=== PATIENT | female | born 1995 | race Caucasian/White ===

== ENCOUNTER 2017-02-01 14:40 | Emergency (ER) | payer MEDICAID, SELFPAY | END 2017-02-01 16:37 | disposition home or self-care (01) | PROVIDERS: Emergency Provider Emergency Medicine; Family Provider Family Medicine; Visit Provider Emergency Medicine | DX: O23.11 Infections of bladder in pregnancy, first trimester (principal); Z3A.01 Less than 8 weeks gestation of pregnancy; J45.909 Unspecified asthma, uncomplicated | CPT/HCPCS: 80053; 81001; 84702; 85025; 87086; 96365; 99284 ==

== ENCOUNTER → 2018-12-08 13:24 | Outpatient (CLI) | payer MEDICAID, SELFPAY ==
--- NOTE | 2018-12-08 13:24 | US_ITS ---
PROCEDURE: US TRANSVAGINAL CLINICAL INDICATION: adnexal mass Follow-up ovarian cyst COMPARISON: TVP US TRANSVAGINAL PREG from 06/10/2013 CT ABDOMEN PELVIS W CON from 11/04/2018 FINDINGS: UTERUS: 8 x 4 x 5 cm with a combined endometrial thickness of 2 mm. scar is present anteriorly and inferiorly. No uterine mass evident. LEFT OVARY: 3.3 x 3 cm containing at 2.8 x 2.7 cm simple appearing cyst. Blood flow is present RIGHT OVARY: 2.7 x 1.7 cm with small follicles noted No cul-de-sac fluid IMPRESSION: 2.8 cm simple appearing left ovarian cyst otherwise negative Dictated by: Cedric Blue MD 12/08/2018 18:34 Electronically signed by Cedric Blue MD in [place] 12/08/2018 18:34
== END ==
PROVIDERS: PCP Family Medicine; Visit Provider Obstetrics & Gynecology
DX: N94.89 Other specified conditions associated with female genital organs and menstrual cycle (principal)
CPT/HCPCS: 76830

== ENCOUNTER → 2019-04-13 12:38 | Outpatient (CLI) | payer MEDICAID, SELFPAY ==
--- NOTE | 2019-04-13 12:38 | US_ITS ---
PROCEDURE: US TRANSVAGINAL CLINICAL INDICATION: pelvic pain COMPARISON: US TRANSVAGINAL from 12/08/2018 FINDINGS: UTERUS: 8cm x 5cmx 3cm with a combined endometrial thickness of 7mm LEFT OVARY: [id number] with a volume of 7ml. RIGHT OVARY: [id number] with a volume of 7.2ml. scar noted involving the lower aspect of the anterior uterus. The uterus mass evident. There are bilateral ovarian follicles. Previously noted dominant cyst in the left ovary has resolved. No cul-de-sac fluid. IMPRESSION: Resolved dominant left ovarian cyst Dictated by: Cedric Bleu MD 04/13/2019 13:47 Electronically signed by Cedric Blue MD in [place] 04/13/2019 13:47
== END ==
PROVIDERS: PCP Family Medicine; Visit Provider Nurse Practitioner Obstetrics & Gynecology
DX: R10.2 Pelvic and perineal pain (principal)
CPT/HCPCS: 76830

== ENCOUNTER 2019-06-28 12:26 | Emergency (ER) | payer MEDICAID, SELFPAY ==
[2019-06-28 12:45] LABS: Microscopic, Urine URINE MICROSCOPIC (MICROSCOPIC)
[2019-06-28 12:46] LABS: Appearance,Urine CLEAR (Clear); Bilirubin,Urine Negative (Negative); Blood, Urine Negative (Negative); Color,Urine YELLOW (Yellow); Glucose,Urine (UA) Negative (Negative); Ketones,Urine Negative (Negative); Leukocyte Esterase,Urine Negative (Negative); Nitrate,Urine Negative (Negative); Protein,Urine Negative (Negative); Specific Gravity, Urine 1.025 (1.005-1.030); Urobilinogen,Urine 0.2 EU/dl (0.2)
[2019-06-28 12:50] LABS: Urine Pregnancy, HCG Qual. Negative (Negative)
[2019-06-28 12:54] VITALS: BP 136/77; PULSE 76; RESP 16; TEMP 37; O2SAT 98; BMI 25.0
[2019-06-28 12:59] LABS: RBC,Urine Occasional #/hpf (0-3)
--- NOTE | 2019-06-28 13:01 | CT_ITS ---
PROCEDURE: CT ABDOMEN PELVIS W CON CLINICAL INDICATION: pain The lower stomach pain, possible kidney stone COMPARISON: CT ABDOMEN PELVIS W CON from 03/06/2019 TECHNIQUE: IV Contrast: 75ML OPTIRAY 350 Oral Contrast none Axial images obtained with sagittal and coronal reformats. All CT scans at the facility use one or more dose reduction, viz: automated exposure control, ma/kV adjustment per patient size (including targeted exams where dose is matched to indication, i.e. head), or iterative reconstruction technique. FINDINGS: LOWER THORAX: There is a stable 9 mm nodule in the left lower lobe ABDOMEN & PELVIS: The liver, spleen, adrenal glands, pancreas, gallbladder, and kidneys show no acute finding. There is a complex cyst in the upper pole of the right kidney measuring 14 mm with a calcification posteriorly with cortical scarring at this region. This may be due to a diverticulum. A sub cm cyst is present in the mid polar region of the right kidney. No ureteral calculi. No intestinal obstruction or free air. No pelvic mass or abnormal fluid collection. There is a 2.3 cm left ovarian cyst. The no acute bony anomalies. IMPRESSION: 1. No acute finding. 2. 14 mm right upper pole renal cyst versus calyceal diverticulum containing a stone. No hydronephrosis. No ureteral calculi 3. 2.3 cm left ovarian cyst Dictated by: Cedric Blue MD 06/28/2019 13:50 Electronically signed by Cedric Blue MD in [place] 06/28/2019 13:50
[2019-06-28 13:05] LABS: Basophils # 0.1 K/mm3 (0-0.2); Basophils % 0.6 % (0.1-2.0); Eosinophils # 0.2 K/mm3 (0.0-0.4); Eosinophils % 2.1 % (0.1-12.0); Hematocrit 44.8 % (37.0-47.0); Hemoglobin 14.3 g/dL (12.2-16.2); Lymphocytes # 2.8 K/mm3 (0.7-4.5); Lymphocytes % 30.3 % (10-50); Mean Corpuscular Hemoglobin 25.8 pg (27.0-31.2); Mean Corpuscular Volume 80.7 fl (81-99); Mean Platelet Volume 8.5 fl (7.4-10.4); Monocytes # 0.6 K/mm3 (0.1-1.0); Monocytes % 6.3 % (1.7-9.3); Neutrophils # 5.6 K/mm3 (1.8-7.8); Neutrophils % 60.7 % (37.0-80.0); Platelet Count 260 K/mm3 (142-424); Red Blood Count 5.55 M/mm3 (4.20-5.40); Red Cell Distribution Width 14.9 % (11.5-17.5); White Blood Count 9.2 K/mm3 (4.8-10.8)
[2019-06-28 13:09] LABS: Alanine Aminotransferase 16 U/L (12-78); Albumin/Globulin Ratio 1.4 (1.1-1.8); Alkaline Phosphatase 76 U/L (38-126); Anion Gap 12.1 mEq/L (5-15); Aspartate Amino Transferase 24 U/L (14-36); Bilirubin,Total 0.3 mg/dl (0.2-1.3); Blood Urea Nitrogen 10 mg/dl (7-17); Calcium 9.9 mg/dl (8.4-10.2); Carbon Dioxide 25 mmol/L (22.0-30.0); Chloride 103 mmol/L (98-107); Creatinine Clearance Estimated 167 mL/min (50-200); Estimated Glomerular Filt Rate 124 ml/min (>60); GFR (African American) 150 ML/MIN (>60); Globulin 3.5 g/dL (1.3-3.2); Glucose 112 mg/dl (74-100); Potassium 4.1 mmoL/L (3.5-5.1); Sodium 136 mmol/L (136-145); Total Protein,Serum 8.5 g/dl (6.3-8.2)
[2019-06-28 13:45] VITALS: BP 112/38; PULSE 62; O2SAT 98
--- NOTE | 2019-06-28 14:24 | HMH.EDABDPAI ---
ED Disposition Clinical Impression: Pelvic pain, Ovarian cyst Disposition: Home, Self-Care Condition on Discharge: Good Instructions: DI for Acute Abdomen Prescriptions: Nabumetone 750 mg PO BID 10 Days #20 tab Transmission Status: Pending to [facility]/pharmacy #[id number] Referrals: Berry Noriega [Primary Care Provider] - - Critical Care Critical Care Time: No Attestation: On 06/28/19, the high probability of a clinically significant, sudden or life threatening deterioration of the following system(s) required my full and direct attention, intervention and personal management. The time I documented below is in addition to time spent performing reported procedures but includes the following listed in this critical care notation. Medical Decision Making - Medical Records Medical records reviewed: Yes: I reviewed the patient's medical records. - Zay Inquiry Pt receiving controlled substance: No Vital Signs: 06/28/19 12:54 06/28/19 13:45 Temperature 98.6 F Temperature Source Oral Pulse Rate [Left Radial] 76 62 Respiratory Rate 16 Blood Pressure [Right Arm] 136/77 112/38 L Blood Pressure Mean [Right Arm] 96 62 Blood Pressure Position [Right Arm] Sitting Sitting 02 Sat by Pulse Oximetry 98 98 Oxygen Delivery Method Room Air Room Air - Lab Data Lab results reviewed: Yes: I reviewed the patient's lab results. Lab Results 06/28/19 12:30: Urine Color Yellow, Urine Appearance Clear, Urine pH 7.0, Ur Specific [place] 1.025, Urine Protein Negative, Urine Glucose (UA) Negative, Urine Ketones Negative, Urine Blood Negative, Urine Nitrate Negative, Urine Bilirubin Negative, Urine Urobilinogen 0.2, Ur Leukocyte Esterase Negative, Urine RBC Occasional, Urine WBC 3-5, Ur Squamous Epith Cells 5-10, Urine Bacteria None 06/28/19 12:30: Urine HCG, Qual Negative 06/28/19 12:40: WBC 9.2, RBC 5.55 H, Hgb 14.3, Hct 44.8, MCV 80.7 L, MCH 25.8 L, MCHC 32.0, RDW 14.9, Plt Count 260, MPV 8.5, Neut % (Auto) 60.7, Lymph % (Auto) 30.3, [place] % (Auto) 6.3, Eos % (Auto) 2.1, Baso % (Auto) 0.6, Neut # (Auto) 5.6, Lymph # (Auto) 2.8, [place] # (Auto) 0.6, Eos # (Auto) 0.2, Baso # (Auto) 0.1 06/28/19 12:40: Sodium 136, Potassium 4.1, Chloride 103, Carbon Dioxide 25, Anion Gap 12.1, BUN 10, Creatinine 0.60, Estimated Creat Clear 167, Estimated GFR 124, Est GFR ( Amer) 150, Glucose 112 H, Calcium 9.9, Total Bilirubin 0.3, AST 24, ALT 16, Alkaline Phosphatase 76, Total Protein 8.5 H, Albumin 5.0, Globulin 3.5 H, Albumin/Globulin Ratio 1.4 Result diagrams: 06/28/19 12:40 06/28/19 12:40 Orders (Tests/Meds): ED MEDICATIONS Discontinued Medications Generic Name Dose Route Start Last Admin Trade Name Freq PRN Reason Stop Dose Admin Hydromorphone HCl 1 mg 06/28/19 13:03 06/28/19 12:50 Dilaudid 2mg/Ml Syringe IV 06/28/19 13:04 1 mg ONCE ONE Administration Sodium Chloride 1,000 mls @ 999 mls/hr 06/28/19 13:15 06/28/19 12:39 Sod Chlor 0.9% 1000ml Bag IV 06/28/19 14:15 999 mls/hr .Q1H1M JEANNIE Administration Ioversol 75 ml 06/28/19 13:22 06/28/19 13:22 Rad-Optiray 350 100ml Vial IV 06/28/19 13:23 75 ml ONCE ONE Administration Protocol Ketorolac Tromethamine 30 mg 06/28/19 13:04 06/28/19 13:06 Toradol 30mg/Ml Vial IV 06/28/19 13:05 Not Given ONCE ONE Metoclopramide HCl 10 mg 06/28/19 13:03 06/28/19 12:50 Reglan 10mg/2ml Vial IVP 06/28/19 13:04 10 mg ONCE ONE Administration Ondansetron HCl 4 mg 06/28/19 13:04 06/28/19 13:06 Zofran 4mg/2ml Vial IV 06/28/19 13:05 Not Given ONCE ONE Sodium Chloride 10 ml 06/28/19 13:22 06/28/19 13:22 Rad-Saline Flush 10ml Syringe IV 06/28/19 13:23 10 ml ONCE ONE Administration - CT Data CT Scan: Abdomen Time Received: 14:[address] Reviewed: Yes: I have viewed the radiologist's interpretation Preliminary Findings: Abnormal (Ovarian cyst measuring 2.3 x 2.8 cm) Abdominal Pain HPI - General Chief Complaint: Abdomina
[2019-06-28 14:34] VITALS: BP 121/62; PULSE 69; RESP 18; TEMP 36.8; O2SAT 98
== END 2019-06-28 14:36 | disposition home or self-care (01) ==
PROVIDERS: Emergency Provider Family Medicine; PCP Family Medicine
DX: N83.202 Unspecified ovarian cyst, left side (principal); J45.909 Unspecified asthma, uncomplicated; F41.9 Anxiety disorder, unspecified
CPT/HCPCS: 74177; 80053; 81001; 81025; 85025; 96365; 96375; 99283; Q9967

== ENCOUNTER → 2019-07-04 17:04 | Outpatient (CLI) | payer MEDICAID, SELFPAY ==
[2019-07-06 20:32] LABS: Neisseria gonorrhoeae, NAA Negative (Negative)
== END ==
PROVIDERS: Visit Provider Nurse Practitioner Obstetrics & Gynecology
DX: Z72.51 High risk heterosexual behavior (principal)
CPT/HCPCS: 87491; 87591

== ENCOUNTER → 2019-11-22 11:50 | Outpatient (CLI) | payer MEDICAID, SELFPAY ==
[2019-11-23 10:03] LABS: Hep A Ab, IgM Negative (Negative); Hepatitis B Core Antibody IgM Negative (Negative); Hepatitis B Surface Antigen Negative (Negative)
[2019-11-23 13:28] LABS: HIV Screen 4th Generation wRfx Non Reactive (Non Reactive); HSV 1 IgG, Type Spec <0.91 index (0.00-0.90); HSV 2 IgG, Type Spec <0.91 index (0.00-0.90); Hepatitis C Antibody <0.1 s/co ratio (0.0-0.9); Rapid Plasma Reagin Ab Titer Non Reactive (NonRea<1:1)
== END ==
PROVIDERS: Visit Provider Nurse Practitioner Obstetrics & Gynecology
DX: Z72.51 High risk heterosexual behavior (principal)
CPT/HCPCS: 36415; 80074; 86592; 86695; 86703; 86790; G0432

== ENCOUNTER 2020-01-17 17:54 | Emergency (ER) | payer OTHER, SELFPAY ==
[2020-01-17 17:55] VITALS: BP 142/93; PULSE 99; RESP 16; TEMP 36.9; O2SAT 99; BMI 25.1
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
[2020-01-17 18:31] VITALS: BP 125/88; PULSE 104; O2SAT 98
[2020-01-17 18:38] LABS: Urine Pregnancy, HCG Qual. Negative (Negative)
[2020-01-17 19:04] VITALS: BP 142/93; PULSE 106; O2SAT 99
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
[2020-01-17 20:27] VITALS: BP 119/88; PULSE 74; RESP 14; TEMP 36.9; O2SAT 98
== END 2020-01-17 20:30 | disposition home or self-care (01) ==
PROVIDERS: Emergency Provider Emergency Medicine; PCP Family Medicine
DX: S06.0X0A Concussion without loss of consciousness, initial encounter (principal); S16.1XXA Strain of muscle, fascia and tendon at neck level, initial encounter; V89.2XXA Person injured in unspecified motor-vehicle accident, traffic, initial encounter
CPT/HCPCS: 70450; 72125; 81025; 96372; 99283; J2405

== ENCOUNTER 2020-03-14 15:30 | Emergency (ER) | payer OTHER, MEDICAID, SELFPAY ==
[2020-03-14 15:32] VITALS: BP 128/75; PULSE 75; RESP 16; TEMP 37; O2SAT 98; BMI 27.7
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
[2020-03-14 16:43] LABS: Urine Pregnancy, HCG Qual. Negative (Negative)
[2020-03-14 18:00] VITALS: BP 132/65; PULSE 78; RESP 16; TEMP 36.6; O2SAT 98
== END 2020-03-14 18:01 | disposition home or self-care (01) ==
PROVIDERS: Emergency Provider Emergency Medicine; PCP Nurse Practitioner Family
DX: G43.009 Migraine without aura, not intractable, without status migrainosus (principal); F41.9 Anxiety disorder, unspecified; J45.909 Unspecified asthma, uncomplicated; Z79.899 Other long term (current) drug therapy
CPT/HCPCS: 81025; 96365; 96375; 99282; J2405

== ENCOUNTER → 2020-04-18 15:03 | Outpatient (CLI) | payer MEDICAID, SELFPAY ==
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
== END ==
PROVIDERS: PCP Nurse Practitioner Family; Visit Provider Specialist
DX: G43.709 Chronic migraine without aura, not intractable, without status migrainosus (principal); G44.319 Acute post-traumatic headache, not intractable
CPT/HCPCS: 70551

== ENCOUNTER 2020-04-30 08:00 | Outpatient (RCR) | payer MEDICAID, SELFPAY | END 2020-04-30 08:05 | disposition home or self-care (01) | LOC: PT 08:00 | PROVIDERS: PCP Nurse Practitioner Family; Visit Provider Specialist | DX: G43.709 Chronic migraine without aura, not intractable, without status migrainosus (principal); G44.319 Acute post-traumatic headache, not intractable | CPT/HCPCS: 20561; 97010; 97014; 97110; 97163; G0283 ==

== ENCOUNTER → 2020-05-26 09:18 | Outpatient (CLI) | payer MEDICAID, SELFPAY ==
[2020-05-26 10:47] LABS: HCG,Quantitative 69 mIU/ml (0-5.42)
== END ==
PROVIDERS: Visit Provider Obstetrics & Gynecology
DX: Z34.90 Encounter for supervision of normal pregnancy, unspecified, unspecified trimester (principal)
CPT/HCPCS: 36415; 84702

== ENCOUNTER → 2020-05-28 08:56 | Outpatient (CLI) | payer MEDICAID, SELFPAY ==
[2020-05-28 09:55] LABS: HCG,Quantitative 275 mIU/ml (0-5.42)
== END ==
PROVIDERS: Visit Provider Obstetrics & Gynecology
DX: Z34.90 Encounter for supervision of normal pregnancy, unspecified, unspecified trimester (principal)
CPT/HCPCS: 36415; 84702

== ENCOUNTER 2020-05-29 08:49 | Emergency (ER) | payer MEDICAID, SELFPAY ==
[2020-05-29 08:50] VITALS: BP 143/94; PULSE 115; RESP 16; TEMP 37.3; O2SAT 98; BMI 29.7
[2020-05-29 08:58] VITALS: BP 143/94; PULSE 95; O2SAT 99
[2020-05-29 09:11] LABS: Microscopic, Urine URINE MICROSCOPIC (MICROSCOPIC)
--- NOTE | 2020-05-29 09:14 | US_ITS ---
PROCEDURE: US OB TRANSVAGINAL CLINICAL INDICATION: pelvic pain, , r/o ectopic COMPARISON: US US TRANSVAGINAL from 04/13/2019 FINDINGS: There is an anechoic sac within the fundus of the uterus. No pole or yolk sac identified which may be too early to detect. Leonard a gest correlation with beta HCG and serial ultrasounds. The ovaries have an unremarkable appearance. No cul-de-sac fluid apparent. IMPRESSION: Intrauterine gestational sac is noted but no pole or yolk sac which could be too early to visualize. Suggest correlation with beta HCG and follow-up ultrasound. One cannot exclude the possibility of an ectopic with these findings. There are no other sonographic findings to support that diagnosis. Dictated by: Cedric Blue MD 05/29/2020 11:11 Cedric Blue MD in [place] 05/29/2020 11:11
--- NOTE | 2020-05-29 09:15 | US_ITS ---
PROCEDURE: US KIDNEY CLINICAL INDICATION: right flank pain, h/o kidney stones COMPARISON: US KID US [id number] from 09/26/2013 FINDINGS: The right kidney is [id number]. No hydronephrosis, cortical thinning, or renal mass or perinephric fluid collection is evident. The left kidney is [id number]. No hydronephrosis, cortical thinning, or renal mass or perinephric fluid collection is evident. No sonographically detected renal calculi IMPRESSION: Unremarkable bilateral renal ultrasound Dictated by: Cedric Blue MD 05/29/2020 11:07 Cedric Blue MD in [place] 05/29/2020 11:07
[2020-05-29 09:17] LABS: Appearance,Urine CLEAR (Clear); Bilirubin,Urine Negative (Negative); Blood, Urine Negative (Negative); Color,Urine YELLOW (Yellow); Glucose,Urine (UA) Negative (Negative); Ketones,Urine Negative (Negative); Leukocyte Esterase,Urine 1+ (Negative); Nitrate,Urine Negative (Negative); PH,Urine 5.5 (5.0-8.5); Protein,Urine Negative (Negative); Specific Gravity, Urine >= 1.030 (1.005-1.030); Urobilinogen,Urine 0.2 EU/dl (0.2)
--- NOTE | 2020-05-29 09:17 | HMH.EDGENADL ---
ED Disposition Clinical Impression: Abdominal pain affecting , Right flank pain Disposition: Home, Self-Care Condition on Discharge: Good Instructions: DI for Acute Abdominal Pain, DI for Flank Pain Additional Instructions: Keflex as prescribed. Follow-up urine culture results in 2 days with primary care provider or [facility]. Additional instructions for ABDOMINAL PAIN: See your physician as soon as possible for further evaluation. Return immediately if worsening abdominal pain, vaginal bleeding, vomiting, shortness of breath, fever, vomiting of blood or abdominal distention. Prescriptions: cephALEXin [Cephalexin 250mg Tab] 250 mg PO Q6H #20 tab Transmission Status: Sent to [facility] #[id number] Referrals: Chilango Landeros APRN [Primary Care Provider] - - Critical Care Critical Care Time: No Attestation: On 05/29/20, the high probability of a clinically significant, sudden or life threatening deterioration of the following system(s) required my full and direct attention, intervention and personal management. The time I documented below is in addition to time spent performing reported procedures but includes the following listed in this critical care notation. Medical Decision Making - Medical Records Medical records reviewed: Yes: I reviewed the patient's medical records. MR Comment: Noted to have had 5 CT scans of the abdomen and pelvis in the year 2019. None of those scans showed renal or ureteral calculi. She has a right renal cyst. Reviewed Beta-hCG results: 69 on 05/26, 275 on 05/28 - Zay Inquiry Pt receiving controlled substance: No Vital Signs: 05/29/20 08:50 05/29/20 08:58 05/29/20 10:25 Temperature 99.2 F Temperature Source Oral Pulse Rate 95 H 88 Pulse Rate [Radial] 115 H Respiratory Rate 16 16 Blood Pressure 143/94 H 102/72 L Blood Pressure [Right Arm] 143/94 H Blood Pressure Mean 102 Blood Pressure Mean [Right Arm] 110 Blood Pressure Position Sitting Blood Pressure Position [Right Arm] Sitting 02 Sat by Pulse Oximetry 98 99 98 Oxygen Delivery Method Room Air Room Air 05/29/20 11:00 Temperature Temperature Source Pulse Rate 76 Pulse Rate [Radial] Respiratory Rate Blood Pressure 110/74 Blood Pressure [Right Arm] Blood Pressure Mean 83 Blood Pressure Mean [Right Arm] Blood Pressure Position Blood Pressure Position [Right Arm] 02 Sat by Pulse Oximetry 100 Oxygen Delivery Method - Lab Data Lab Results 05/29/20 08:55: Urine Color Yellow, Urine Appearance Clear, Urine pH 5.5, Ur Specific [place] >= 1.030, Urine Protein Negative, Urine Glucose (UA) Negative, Urine Ketones Negative, Urine Blood Negative, Urine Nitrate Negative, Urine Bilirubin Negative, Urine Urobilinogen 0.2, Ur Leukocyte Esterase 1+ A, Urine RBC None, Urine WBC 5-10, Ur Squamous Epith Cells 3-5, Urine Bacteria 1+ 05/29/20 09:22: WBC 9.7, RBC 4.92, Hgb 13.2, Hct 40.2, MCV 81.7, MCH 26.8 L, MCHC 32.8, RDW 13.8, Plt Count 226, MPV 7.9, Neut % (Auto) 68.8, Lymph % (Auto) 25.6, [place] % (Auto) 3.8, Eos % (Auto) 1.3, Baso % (Auto) 0.4, Neut # (Auto) 6.7, Lymph # (Auto) 2.5, [place] # (Auto) 0.4, Eos # (Auto) 0.1, Baso # (Auto) 0.0 05/29/20 09:22: Sodium 134 L, Potassium 4.1, Chloride 103, Carbon Dioxide 22, Anion Gap 13.1, BUN 6 L, Creatinine 0.50 L, Estimated Creat Clear 250, Estimated GFR 152, Est GFR ( Amer) 183, Glucose 151 H, Calcium 9.2, Total Bilirubin 0.6, AST 48 H, ALT 59, Alkaline Phosphatase 83, Total Protein 7.4, Albumin 4.5, Globulin 2.9, Albumin/Globulin Ratio 1.6 05/29/20 09:22: HCG, Quant 521 H 05/29/20 09:22: Lipase 59 Result diagrams: 05/29/20 09:22 05/29/20 09:22 Orders (Tests/Meds): ED MEDICATIONS Discontinued Medications Generic Name Dose Route Start Last Admin Trade Name Yudelka PRN Reason Stop Dose Admin Acetaminophen 650 mg 05/29/20 10:19 05/29/20 10:25 Acetaminophen 325mg Tab PO 05/29/20 10:20 650 mg ONCE ONE Administration
[2020-05-29 09:32] LABS: Basophils % 0.4 % (0.1-2.0); Eosinophils # 0.1 K/mm3 (0.0-0.4); Eosinophils % 1.3 % (0.1-12.0); Hematocrit 40.2 % (37.0-47.0); Hemoglobin 13.2 g/dL (12.2-16.2); Lymphocytes # 2.5 K/mm3 (0.7-4.5); Lymphocytes % 25.6 % (10-50); Mean Corpuscular HGB Conc 32.8 g/dL (31.8-35.4); Mean Corpuscular Hemoglobin 26.8 pg (27.0-31.2); Mean Corpuscular Volume 81.7 fl (81-99); Mean Platelet Volume 7.9 fl (7.4-10.4); Monocytes # 0.4 K/mm3 (0.1-1.0); Monocytes % 3.8 % (1.7-9.3); Neutrophils # 6.7 K/mm3 (1.8-7.8); Neutrophils % 68.8 % (37.0-80.0); Platelet Count 226 K/mm3 (142-424); Red Blood Count 4.92 M/mm3 (4.20-5.40); Red Cell Distribution Width 13.8 % (11.5-17.5); White Blood Count 9.7 K/mm3 (4.8-10.8)
[2020-05-29 09:41] LABS: Chloride 103 mmol/L (98-107); Potassium 4.1 mmoL/L (3.5-5.1); Sodium 134 mmol/L (136-145)
[2020-05-29 09:43] LABS: Alanine Aminotransferase 59 U/L (12-78); Aspartate Amino Transferase 48 U/L (14-36); Blood Urea Nitrogen 6 mg/dl (7-17); Creatinine Clearance Estimated 250 mL/min (50-200); Estimated Glomerular Filt Rate 152 ml/min (>60); GFR (African American) 183 ML/MIN (>60)
[2020-05-29 09:44] LABS: Albumin Level 4.5 g/dl (3.5-5.0); Albumin/Globulin Ratio 1.6 (1.1-1.8); Alkaline Phosphatase 83 U/L (38-126); Anion Gap 13.1 mEq/L (5-15); Bilirubin,Total 0.6 mg/dl (0.2-1.3); Calcium 9.2 mg/dl (8.4-10.2); Carbon Dioxide 22 mmol/L (22.0-30.0); Globulin 2.9 g/dL (1.3-3.2); Glucose 151 mg/dl (74-100); Lipase 59 U/L (23-300); Total Protein,Serum 7.4 g/dl (6.3-8.2)
[2020-05-29 09:47] LABS: Bacteria,Urine 1+ /lpf
[2020-05-29 10:02] LABS: HCG,Quantitative 521 mIU/ml (0-5.42)
[2020-05-29 10:25] VITALS: BP 102/72; PULSE 88; RESP 16; O2SAT 98
[2020-05-29 11:00] VITALS: BP 110/74; PULSE 76; O2SAT 100
[2020-05-29 11:31] VITALS: BP 104/68; PULSE 88; RESP 16; TEMP 36.6; O2SAT 98
[2020-05-31 08:57] LABS: Neisseria gonorrhoeae, NAA Negative (Negative)
== END 2020-05-29 11:32 | disposition home or self-care (01) ==
PROVIDERS: Emergency Provider Emergency Medicine; PCP Nurse Practitioner Family
DX: O26.899 Other specified pregnancy related conditions, unspecified trimester (principal); Z34.90 Encounter for supervision of normal pregnancy, unspecified, unspecified trimester; E11.9 Type 2 diabetes mellitus without complications; F41.9 Anxiety disorder, unspecified; Z87.442 Personal history of urinary calculi
CPT/HCPCS: 76770; 76817; 80053; 81001; 83690; 84702; 85025; 87086; 87491; 87591; 96365; 99283

== ENCOUNTER 2020-06-03 11:45 | Emergency (ER) | payer MEDICAID, SELFPAY ==
[2020-06-03 12:05] VITALS: BP 125/70; PULSE 105; RESP 18; O2SAT 100; BMI 29.7
[2020-06-03 12:09] VITALS: BP 125/70; PULSE 105; RESP 18; TEMP 36.7; O2SAT 100; BMI 29.7
--- NOTE | 2020-06-03 12:44 | HMH.EDUTC ---
[facility] [place] Clinical Impression: Wasp sting Qualifiers: Encounter type: initial encounter Injury intent: undetermined intent Qualified Code(s): T63.464A - Toxic effect of venom of wasps, undetermined, initial encounter Disposition: Home, Self-Care Condition on Discharge: Good Instructions: How to Care for an Insect Bite or Sting, Insect Bites and Stings, DI for Insect Bites and Stings, Diphenhydramine Additional Instructions: Benadryl is safe to take during for reactions to bee stings but always discuss over the counter medications with pharmacy to make sure they are safe to take during Follow up with your Family Doctor for further treatment and evaluation Return if needed Follow up with OBGYN as scheduled Referrals: Chilango Landeros APRN [Primary Care Provider] - As needed Time of Disposition: 13:00 Medical Decision Making - Zay Inquiry Pt receiving controlled substance: No Zay was queried for this patient: No Vital Signs: 06/03/20 12:05 06/03/20 12:09 Temperature 98.1 F Temperature Source Oral Pulse Rate [Left Radial] 105 H 105 H Respiratory Rate 18 18 Blood Pressure [Right Arm] 125/70 125/70 Blood Pressure Mean [Right Arm] 88 88 Blood Pressure Source [Right Arm] Automatic Cuff Automatic Cuff Blood Pressure Position [Right Arm] Sitting Sitting 02 Sat by Pulse Oximetry 100 100 Oxygen Delivery Method Room Air Room Air Medical Decision Narrative: Patient states that she is suppose to have appointment with Dr Emiliano beltran, called Dr Monroy office no answer left message awaiting call back Medication discussed with pharmacy may take Benadryl [place] [facility] [place] - General Stated complaint: Wasp sting Time Seen by Provider: 06/03/20 12:44 Mode of Arrival: Ambulatory Source of Information: Patient Limitations: No Limitations Description of Symptoms (Recalled from Triage Doc. by RN): WASP STING ON RIGHT HAND AND RIGHT SIDE OF BACK HEENT Symptoms (Recalled from RN notes): No Resp Symptoms (Recalled from RN notes): No Skin Symptoms (Recalled from RN notes): Yes MS Symptoms (Recalled from RN notes): No Functional Status (Recalled from RN notes): WNL - History of Present Illness Provider Complaint: Patient states that she was stung on her right hand and right side of her back States that she just found out she was and has not had her first OB visit yet and she was not sure what she could take State that she noticed she was already having some swelling in her right hand so she came in to see what she can take for it - Related Data Home Medications Medication Instructions Recorded Confirmed omeprazole 20 mg capsule,delayed 20 mg PO DAILY 01/24/20 04/29/20 release Previous Rx's Medication Instructions Recorded amitriptyline 25 mg tablet 25 mg PO HS #30 tab 04/29/20 sumatriptan succinate 100 mg tablet 100 mg PO Q2H PRN #10 tab 04/29/20 cephALEXin [Cephalexin 250mg Tab] 250 mg PO Q6H #20 tab 05/29/20 Allergies Allergy/AdvReac Type Severity Reaction Status Date / Time No Known Allergies Allergy Verified 04/29/20 14:35 - Worker's Comp Is this a Worker's Comp case?: No [facility] History - Hepatitis A Screen Drug use history?: No High risk sexual behaviors?: No History of sexually transmitted infection?: No Currently employed?: No Childcare worker?: No Do you have indoor plumbing?: Yes Do you have electricity?: Yes Attestation statement:: This patient has been screened for Hepatitis A risk factors. I have reviewed the patient's past medical history: Yes Medical History: Reports:: Anxiety, Asthma, Diabetes Mellitus Type 2, Kidney Stones, Migraine Denies:: Diabetes Mellitus Type 1 Other Medical History: Reports: Anemia, Other Comment: KIDNEY STONES Other Surgeries: Yes: No Previous Surgery, , Other Amputation: No Fractures: No Comment: [id number] RT. KNEE SURGERY X2. 2014- PRIMARY . 2014-WISDOM TEETH. 2018- REPEAT
[2020-06-03 13:23] VITALS: BP 125/70; PULSE 105; RESP 18; TEMP 36.7; O2SAT 100
== END 2020-06-03 13:24 | disposition home or self-care (01) ==
PROVIDERS: Emergency Provider Emergency Medicine; PCP Nurse Practitioner Family
DX: T63.464A Toxic effect of venom of wasps, undetermined, initial encounter (principal); E11.9 Type 2 diabetes mellitus without complications; Z34.90 Encounter for supervision of normal pregnancy, unspecified, unspecified trimester; G43.709 Chronic migraine without aura, not intractable, without status migrainosus; F41.9 Anxiety disorder, unspecified; Z87.442 Personal history of urinary calculi
CPT/HCPCS: 99202; G0463

== ENCOUNTER → 2020-06-09 09:45 | Outpatient (CLI) | payer MEDICAID, SELFPAY ==
[2020-06-09 11:25] LABS: HCG,Quantitative 23917 mIU/ml (0-5.42)
== END ==
PROVIDERS: Visit Provider Obstetrics & Gynecology
DX: Z34.90 Encounter for supervision of normal pregnancy, unspecified, unspecified trimester (principal)
CPT/HCPCS: 36415; 84702

== ENCOUNTER → 2020-06-17 12:49 | Outpatient (CLI) | payer MEDICAID, SELFPAY ==
--- NOTE | 2020-06-17 12:50 | US_ITS ---
PROCEDURE: US OB <= 14 WEEKS FETUS CLINICAL INDICATION: dates COMPARISON: US US OB TRANSVAGINAL from 05/29/2020 FINDINGS: An intrauterine gestational sac is present with a pole with a crown-rump length of 1.06cm correlating to gestational age of 7weeks 2days. heart tones are present with an FHR of 147bpm. Yolk sac is noted. IMPRESSION: The estimated gestational age by ultrasound is 7 weeks and 2 days. Estimated due date by Ultrasound is 02/01/2021 Dictated by: Denisha Nguyen 06/17/2020 14:26 Denisha Nguyen in [place] 06/17/2020 14:26
== END ==
PROVIDERS: PCP Nurse Practitioner Family; Visit Provider Obstetrics & Gynecology
DX: Z34.90 Encounter for supervision of normal pregnancy, unspecified, unspecified trimester (principal)
CPT/HCPCS: 76801

== ENCOUNTER 2020-06-19 11:28 | Emergency (ER) | payer MEDICAID, SELFPAY ==
[2020-06-19 11:53] VITALS: BP 129/81; PULSE 114; RESP 20; TEMP 37; O2SAT 96; BMI 29.7
[2020-06-19 12:02] VITALS: BP 129/81; PULSE 114; RESP 20; TEMP 37; O2SAT 96
[2020-06-19 12:06] LABS: UTC Strep Screen (Rapid) Negative (Negative)
[2020-06-19 12:07] LABS: UTC Influenza A Antigen Negative (Negative); UTC Influenza B Antigen Negative (Negative)
--- NOTE | 2020-06-19 12:10 | HMH.EDUTC ---
[facility] [place] Clinical Impression: Pharyngitis Qualifiers: Pharyngitis/tonsillitis etiology: unspecified etiology Qualified Code(s): J02.9 - Acute pharyngitis, unspecified Qualifiers: Weeks of gestation: less than 8 weeks Qualified Code(s): Z3A.01 - Less than 8 weeks gestation of Disposition: Home, Self-Care Condition on Discharge: Good Instructions: Sore Throat, DI for Pharyngitis/Tonsillopharyngitis -- Adult Additional Instructions: Drink plenty of fluids. Take tylenol or ibuprofen for pain or fever. Take the medications as directed. Follow up with your regular doctor. GO TO THE ER FOR ANY WORSENING SYMPTOMS Throw your tooth brush away and get a new one. Prescriptions: Amoxicillin [Amoxicillin 500mg Tab] 500 mg PO TID 10 Days #30 tab Transmission Status: Received by [facility] #[id number] Referrals: Chilango Landeros APRN [Primary Care Provider] - Time of Disposition: 12:21 Medical Decision Making - Medical Records Medical records reviewed: No: I reviewed the patient's medical records. - Zay Inquiry Pt receiving controlled substance: No Vital Signs: 06/19/20 11:53 06/19/20 12:02 Temperature 98.6 F 98.6 F Temperature Source Oral Oral Pulse Rate 114 H Pulse Rate [Left] 114 H Respiratory Rate 20 20 Blood Pressure 129/81 Blood Pressure [Right Arm] 129/81 Blood Pressure Mean [Right Arm] 97 02 Sat by Pulse Oximetry 96 Oxygen Delivery Method Room Air - Lab Data Lab results reviewed: Yes: I reviewed the patient's lab results. Lab Results 06/19/20 12:05: Influenza Type A Ag Negative, Influenza Type B Ag Negative 06/19/20 12:05: Strep Scn Rapid Clinic Negative Orders (Tests/Meds): ORDERS Category Date Time Status Strep Screen Confirmation Stat Micro 06/19/20 12:05 Received [facility] [place] HPI - General Stated complaint: cough, congestion Time Seen by Provider: 06/19/20 12:16 Mode of Arrival: Ambulatory Source of Information: Patient Limitations: No Limitations Description of Symptoms (Recalled from Triage Doc. by RN): Cough, fatigue, loss of appetite, headache, chest congesgtion, and cramping. Pt 7weeks 4 days . HEENT Symptoms (Recalled from RN notes): No Resp Symptoms (Recalled from RN notes): Yes Skin Symptoms (Recalled from RN notes): No MS Symptoms (Recalled from RN notes): No Functional Status (Recalled from RN notes): wnl - History of Present Illness Provider Complaint: She c/o sore throat, cough, chest congestion, and feeling bad for the past 2 days. Her son was just diagnosed with strep throat. She is 7 weeks . - Related Data Home Medications Medication Instructions Recorded Confirmed omeprazole 20 mg capsule,delayed 20 mg PO DAILY 01/24/20 04/29/20 release Previous Rx's Medication Instructions Recorded amitriptyline 25 mg tablet 25 mg PO HS #30 tab 04/29/20 sumatriptan succinate 100 mg tablet 100 mg PO Q2H PRN #10 tab 04/29/20 cephALEXin [Cephalexin 250mg Tab] 250 mg PO Q6H #20 tab 05/29/20 ondansetron 8 mg disintegrating 8 mg PO Q8H #90 tab 06/13/20 tablet Amoxicillin [Amoxicillin 500mg Tab] 500 mg PO TID 10 Days #30 tab 06/19/20 Allergies Allergy/AdvReac Type Severity Reaction Status Date / Time No Known Allergies Allergy Verified 06/19/20 12:01 - Worker's Comp Is this a Worker's Comp case?: No [facility] History - Hepatitis A Screen Drug use history?: No High risk sexual behaviors?: No History of sexually transmitted infection?: No Currently employed?: No Childcare worker?: No Do you have indoor plumbing?: Yes Do you have electricity?: Yes Attestation statement:: This patient has been screened for Hepatitis A risk factors. I have reviewed the patient's past medical history: Yes Medical History: Reports:: Anxiety, Asthma, Diabetes Mellitus Type 2, Kidney Stones, Migraine Denies:: Diabetes Mellitus Type 1 Other Medical History: Reports: Anemia, Other Comment: KIDNEY STONE
== END 2020-06-19 12:31 | disposition home or self-care (01) ==
PROVIDERS: Emergency Provider Nurse Practitioner Family; PCP Nurse Practitioner Family
DX: J02.9 Acute pharyngitis, unspecified (principal); Z3A.01 Less than 8 weeks gestation of pregnancy; E11.9 Type 2 diabetes mellitus without complications; F41.9 Anxiety disorder, unspecified
CPT/HCPCS: 87804; 87880; 99202; G0463

== ENCOUNTER → 2020-06-24 14:45 | Outpatient (CLI) | payer MEDICAID, SELFPAY ==
[2020-06-24 15:08] LABS: Basophils % 0.3 % (0.1-2.0); Eosinophils # 0.1 K/mm3 (0.0-0.4); Eosinophils % 1.2 % (0.1-12.0); Hematocrit 37.5 % (37.0-47.0); Hemoglobin 12.9 g/dL (12.2-16.2); Lymphocytes % 26.8 % (10-50); Mean Corpuscular HGB Conc 34.4 g/dL (31.8-35.4); Mean Corpuscular Hemoglobin 27.1 pg (27.0-31.2); Mean Corpuscular Volume 78.8 fl (81-99); Mean Platelet Volume 7.8 fl (7.4-10.4); Monocytes # 0.4 K/mm3 (0.1-1.0); Monocytes % 3.3 % (1.7-9.3); Neutrophils # 7.6 K/mm3 (1.8-7.8); Neutrophils % 68.4 % (37.0-80.0); Platelet Count 253 K/mm3 (142-424); Red Blood Count 4.77 M/mm3 (4.20-5.40); Red Cell Distribution Width 13.9 % (11.5-17.5); White Blood Count 11.1 K/mm3 (4.8-10.8)
[2020-06-26 08:37] LABS: HIV Screen 4th Generation wRfx Non Reactive (Non Reactive)
[2020-06-26 13:31] LABS: Hepatitis B Surface Antigen Negative (Negative); Hepatitis C Antibody 0.1 s/co ratio (0.0-0.9); Rapid Plasma Reagin Ab Titer Non Reactive (NonRea<1:1)
[2020-06-27 11:31] LABS: Rubella Antibodies, IgG <0.90 index (Immune >0.99)
== END ==
PROVIDERS: Visit Provider Obstetrics & Gynecology
DX: Z34.90 Encounter for supervision of normal pregnancy, unspecified, unspecified trimester (principal)
CPT/HCPCS: 36415; 85025; 86592; 86703; 86762; 86850; 87340; 87380; G0432

== ENCOUNTER 2020-07-18 10:00 | Outpatient (CLI) | payer MEDICAID, SELFPAY ==
[2020-07-18 10:18] VITALS: BP 115/70; PULSE 86; RESP 16; O2SAT 100
[2020-07-18 10:48] VITALS: BP 119/68; PULSE 79; RESP 16
[2020-07-18 11:18] VITALS: BP 113/72; PULSE 73; RESP 16
== END 2020-07-18 11:20 | disposition home or self-care (01) ==
LOC: INF 10:19
PROVIDERS: Visit Provider Obstetrics & Gynecology
DX: O26.899 Other specified pregnancy related conditions, unspecified trimester (principal); R10.9 Unspecified abdominal pain; Z3A.11 11 weeks gestation of pregnancy
CPT/HCPCS: 96360

== ENCOUNTER → 2020-07-23 13:10 | Outpatient (CLI) | payer MEDICAID, SELFPAY ==
--- NOTE | 2020-07-23 13:10 | US_ITS ---
PROCEDURE: US KIDNEY CLINICAL INDICATION: COMPARISON: US US KIDNEY from 05/29/2020 FINDINGS: The right kidney is [id number]. No hydronephrosis, cortical thinning, or renal mass or perinephric fluid collection is evident. 2.4 centimeter right renal cortical cyst. The left kidney is [id number]. No hydronephrosis, cortical thinning, or renal mass or perinephric fluid collection is evident. Kidneys are normal in echogenicity and echotexture. There is normal renal vascular flow bilaterally. IMPRESSION: No hydronephrosis of either kidney. 2.4 centimeter right renal cortical cyst. Dictated by: Jeffry Hobson MD 07/23/2020 15:17 Jeffry Hobson MD in [place] 07/23/2020 15:17
== END ==
PROVIDERS: PCP Nurse Practitioner Family; Visit Provider Obstetrics & Gynecology
DX: N20.0 Calculus of kidney (principal)
CPT/HCPCS: 76770

== ENCOUNTER 2020-07-23 13:32 | Emergency (ER) | payer MEDICAID, SELFPAY ==
[2020-07-23 14:08] VITALS: BP 114/74; PULSE 90; RESP 18; TEMP 37.1; O2SAT 99; BMI 28.9
--- NOTE | 2020-07-23 14:09 | XR_ITS ---
PROCEDURE: XR HAND LT MIN 3V CLINICAL INDICATION: pain COMPARISON: No exams were available for comparison FINDINGS: No fracture or dislocation. No lytic or blastic change. There is normal mineralization. The joint spaces are well-preserved. No significant degenerative/arthritic changes. No erosive changes evident. Other findings:Mild soft tissue swelling. IMPRESSION: Mild soft tissue swelling with no definite acute fracture or dislocation. Dictated by: Jeffry Hobson MD 07/23/2020 14:29 Jeffry Hobson MD in [place] 07/23/2020 14:29
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
--- NOTE | 2020-07-23 14:21 | HMH.ITSTN ---
PATIENT WAS INFORMED BY SHAUNA SOFIA AND MYSELF OF THE RISKS OF RADIATION TO THE UNBORN FETUS,,PATIENT SIGNED THAT SHE FULLY UNDERSTOOD AND GAVE CONSENT FOR X-RAYS,,ABDOMEN WAS DOUBLE SHIELDED WITH LEAD
[2020-07-23 14:40] VITALS: BP 114/77; PULSE 90; RESP 18; TEMP 37.1
== END 2020-07-23 14:43 | disposition home or self-care (01) ==
PROVIDERS: Emergency Provider Nurse Practitioner; PCP Nurse Practitioner Family
DX: S63.92XA Sprain of unspecified part of left wrist and hand, initial encounter (principal); Z3A.12 12 weeks gestation of pregnancy; W20.8XXA Other cause of strike by thrown, projected or falling object, initial encounter; Y92.488 Other paved roadways as the place of occurrence of the external cause; E11.9 Type 2 diabetes mellitus without complications; F41.9 Anxiety disorder, unspecified
CPT/HCPCS: 73130; 99202; G0463

== ENCOUNTER 2020-09-01 14:09 | Outpatient (CLI) | payer MEDICAID, SELFPAY ==
[2020-09-01 14:18] VITALS: BP 107/64; PULSE 83; RESP 18; TEMP 36.5; O2SAT 100
[2020-09-01 14:48] VITALS: BP 98/54; PULSE 88; RESP 18; O2SAT 100
[2020-09-01 15:25] VITALS: BP 101/56; PULSE 82; RESP 18; O2SAT 99
== END 2020-09-01 15:25 | disposition home or self-care (01) ==
LOC: INF 14:09
PROVIDERS: Visit Provider Obstetrics & Gynecology
DX: O21.8 Other vomiting complicating pregnancy (principal); Z3A.18 18 weeks gestation of pregnancy
CPT/HCPCS: 96360; 96375; J2405

== ENCOUNTER → 2020-09-15 13:53 | Outpatient (CLI) | payer MEDICAID, SELFPAY ==
--- NOTE | 2020-09-15 13:54 | US_ITS ---
PROCEDURE: US OB >= 14 WEEKS FETUS CLINICAL INDICATION: OB complete COMPARISON: US US OB <= 14 WEEKS FETUS from 06/17/2020 FINDINGS: There is a single live fetus present which is in cephalic presentation. heart and body motion is noted. The cervix is closed and measures 4 cm but could be elongated due to partially filled urinary bladder. Placenta is grade 1 and is anterior and lateral with an accessory lobe anteriorly Complete survey performed and was unremarkable on the submitted images as in PACS. No discrete anomalies identified on survey imaging by technologist. Active fetus. Three-vessel cord with satisfactory umbilical cord insertion. 4- chamber heart noted. Survey of brain & ventricles Unremarkable. Face and neck survey unremarkable. Diaphragm and chest views unremarkable. Abdomen: Both kidneys noted and unremarkable. Stomach noted and satisfactory. Spine: Survey of the spine satisfactory with no anomalies identified nor imaged. Both arms and legs noted. Amniotic Fluid: Adequate. Maternal adnexa: No significant findings. Measurements: Average ultrasound age 20weeks 4days. Gestational Age 20weeks 4days Estimated due date by ultrasound age 1201/29/2021. Estimated weight 357g BPD = 20weeks 5days OFD = 20weeks 3days HC = 19weeks 6days AC = 20weeks 5days FL = 20weeks 4days Growth Percentile= 66% Heart Rate = 146bpm Cerebellum = 20weeks 4days Humerus = 20weeks 5days HC/AC is 1.11 CI is 0.81 FL/BPD is 0.69 FL/AC is 0.22 IMPRESSION: Live IUP with an average ultrasound age 20 weeks 4 days cephalic position. All parameters correlate with no obvious anomalies. Please see above for detail. Dictated by: Cedric Blue MD 09/15/2020 14:57 Cedric Blue MD in [place] 09/15/2020 14:57
== END ==
PROVIDERS: PCP Nurse Practitioner Family; Visit Provider Obstetrics & Gynecology
DX: Z34.90 Encounter for supervision of normal pregnancy, unspecified, unspecified trimester (principal); G47.30 Sleep apnea, unspecified; R06.83 Snoring
CPT/HCPCS: 76805; 95806

== ENCOUNTER 2020-10-02 17:36 | Outpatient (CLI) | payer MEDICAID, SELFPAY ==
[2020-10-02 17:49] VITALS: BMI 29.9
[2020-10-02 18:10] LABS: Microscopic, Urine URINE MICROSCOPIC (MICROSCOPIC)
[2020-10-02 18:11] VITALS: BP 120/80; PULSE 112; RESP 18; TEMP 36.7; O2SAT 98; BMI 29.9
[2020-10-02 18:13] LABS: Appearance,Urine SL CLOUDY (Clear); Bilirubin,Urine Negative (Negative); Blood, Urine Negative (Negative); Color,Urine ORANGE (Yellow); Glucose,Urine (UA) 1+ (Negative); Ketones,Urine TRACE (Negative); Leukocyte Esterase,Urine Negative (Negative); Nitrate,Urine Negative (Negative); Protein,Urine Negative (Negative); Specific Gravity, Urine 1.025 (1.005-1.030); Urobilinogen,Urine 0.2 EU/dl (0.2)
[2020-10-02 18:23] LABS: Bacteria,Urine Trace /lpf; Mucus,Urine Trace /lpf
[2020-10-02 18:35] LABS: Barbiturates Screen,Urine Negative ng/ml (<200); Benzodiazepines Screen,Urine Negative ng/ml (<200)
[2020-10-02 18:36] LABS: Amphetamine/Metha Screen,Urine Negative ng/ml (<1000)
[2020-10-02 18:37] LABS: Cannabinoid Screen,Urine Negative ng/ml (<50); Cocaine Screen,Urine Negative ng/ml (<300)
[2020-10-02 18:38] LABS: Methadone Screen,Urine Negative ng/ml (<300); Opiate Screen,Urine Negative ng/ml (<300)
[2020-10-02 18:39] LABS: Phencyclidine Screen,Urine Negative ng/ml (<25)
[2020-10-02 19:34] LABS: Alanine Aminotransferase 10 U/L (12-78); Albumin Level 3.5 g/dl (3.5-5.0); Albumin/Globulin Ratio 1.2 (1.1-1.8); Alkaline Phosphatase 70 U/L (38-126); Anion Gap 11.6 mEq/L (5-15); Aspartate Amino Transferase 20 U/L (14-36); Bilirubin,Total < 0.1 mg/dl (0.2-1.3); Blood Urea Nitrogen 5 mg/dl (7-17); Calcium 8.7 mg/dl (8.4-10.2); Carbon Dioxide 23 mmol/L (22.0-30.0); Chloride 105 mmol/L (98-107); Creatinine Clearance Estimated 312 mL/min (50-200); Estimated Glomerular Filt Rate 194 ml/min (>60); GFR (African American) 235 ML/MIN (>60); Glucose 85 mg/dl (74-100); Potassium 3.6 mmoL/L (3.5-5.1); Sodium 136 mmol/L (136-145); Total Protein,Serum 6.5 g/dl (6.3-8.2)
== END 2020-10-02 20:00 | disposition home or self-care (01) ==
LOC: OBOUT 17:38 → OB 17:39
PROVIDERS: PCP Nurse Practitioner Family; Visit Provider Obstetrics & Gynecology
DX: O36.8120 Decreased fetal movements, second trimester, not applicable or unspecified (principal); Z3A.22 22 weeks gestation of pregnancy; R11.0 Nausea; R60.0 Localized edema; R10.11 Right upper quadrant pain
CPT/HCPCS: 36415; 80053; 80305; 81001; G0463

== ENCOUNTER 2020-10-17 14:12 | Outpatient (CLI) | payer MEDICAID, SELFPAY ==
[2020-10-17 15:09] VITALS: BMI 29.8
--- NOTE | 2020-10-17 15:11 | XR_ITS ---
PROCEDURE: XR CHEST PORTABLE CLINICAL HISTORY: SOA COMPARISON: CR XR CHEST 2V from 11/04/2018 FINDINGS: The cardiomediastinal silhouette and pulmonary vascularity are within normal limits. The lungs are clear without infiltrates, suspicious nodules, or pleural effusions. Minimal upper thoracic curvature convex left IMPRESSION: No acute findings. Dictated by: Cedric Blue MD 10/17/2020 15:33 Cedric Blue MD in [place] 10/17/2020 15:33
[2020-10-17 15:23] VITALS: BP 107/69; PULSE 111; RESP 20; TEMP 37.4; BMI 29.8
== END 2020-10-17 15:55 | disposition home or self-care (01) ==
LOC: OBOUT 14:13 → OB 14:16
PROVIDERS: PCP Nurse Practitioner Family; Visit Provider Obstetrics & Gynecology
DX: O26.892 Other specified pregnancy related conditions, second trimester (principal); Z3A.26 26 weeks gestation of pregnancy; R07.81 Pleurodynia; R06.02 Shortness of breath
CPT/HCPCS: 71045; G0463

== ENCOUNTER → 2020-10-28 13:27 | Outpatient (CLI) | payer MEDICAID, SELFPAY | PROVIDERS: PCP Nurse Practitioner Family; Visit Provider Obstetrics & Gynecology | DX: Z34.90 Encounter for supervision of normal pregnancy, unspecified, unspecified trimester (principal) ==

== ENCOUNTER 2020-10-28 13:32 | Emergency (ER) | payer MEDICAID, SELFPAY ==
[2020-10-28 13:33] VITALS: BP 131/82; PULSE 113; RESP 20; TEMP 36.7; O2SAT 98; BMI 29.5
[2020-10-28 13:56] LABS: Microscopic, Urine URINE MICROSCOPIC (MICROSCOPIC)
[2020-10-28 14:00] LABS: Appearance,Urine CLEAR (Clear); Bilirubin,Urine Negative (Negative); Blood, Urine 1+ (Negative); Color,Urine YELLOW (Yellow); Glucose,Urine (UA) TRACE (Negative); Ketones,Urine TRACE (Negative); Leukocyte Esterase,Urine 1+ (Negative); Nitrate,Urine Negative (Negative); Protein,Urine TRACE (Negative); Specific Gravity, Urine >= 1.030 (1.005-1.030); Urine Pregnancy, HCG Qual. Positive (Negative)
--- NOTE | 2020-10-28 14:05 | PC.NURSE ---
heart tones noted at 158
[2020-10-28 14:20] LABS: Bacteria,Urine 1+ /lpf
--- NOTE | 2020-10-28 14:51 | US_ITS ---
PROCEDURE: US KIDNEY CLINICAL INDICATION: h/o renal stone, R flank pain, pressure COMPARISON: US US KIDNEY from 07/23/2020 FINDINGS: The right kidney is [id number]. No hydronephrosis, cortical thinning, or renal mass or perinephric fluid collection is evident. Benign-appearing 2 cm cyst is present in the upper pole of the right kidney. The left kidney is [id number]. No hydronephrosis, cortical thinning, or renal mass or perinephric fluid collection is evident. Mild splenomegaly at 15 cm IMPRESSION: Small right renal cyst. Otherwise negative bilateral renal ultrasound. Mild splenomegaly Dictated by: Cedric Blue MD 10/28/2020 16:04 Cedric Blue MD in [place] 10/28/2020 16:04
--- NOTE | 2020-10-28 14:52 | HMH.EDGENADL ---
ED Disposition Clinical Impression: UTI (urinary tract infection) Qualifiers: Urinary tract infection type: site unspecified Hematuria presence: without hematuria Qualified Code(s): N39.0 - Urinary tract infection, site not specified Disposition: Home, Self-Care Condition on Discharge: Good Additional Instructions: Antibiotics as directed. Follow-up with your boat master before the end of the week. Return emergency department for fever, worsening urinary symptoms. Prescriptions: Amoxicillin/Potassium Clav [Augmentin 875-125 Tablet] 1 tab PO Q12H #10 tab Transmission Status: Pending to [facility] #[id number] Referrals: Chilango Landeros APRN [Primary Care Provider] - 3 days Time of Disposition: 15:31 - Critical Care Critical Care Time: No Attestation: On 10/28/20, the high probability of a clinically significant, sudden or life threatening deterioration of the following system(s) required my full and direct attention, intervention and personal management. The time I documented below is in addition to time spent performing reported procedures but includes the following listed in this critical care notation. Medical Decision Making - Medical Records Medical records reviewed: Yes: I reviewed the patient's medical records. - Zay Inquiry Pt receiving controlled substance: No Vital Signs: 10/28/20 13:33 Temperature 98.1 F Temperature Source Oral Pulse Rate [Right Radial] 113 H Respiratory Rate 20 Blood Pressure [Right Arm] 131/82 Blood Pressure Mean [Right Arm] 98 Blood Pressure Source [Right Arm] Automatic Cuff Blood Pressure Position [Right Arm] Sitting 02 Sat by Pulse Oximetry 98 Oxygen Delivery Method Room Air - Lab Data Lab Results 10/28/20 13:45: Urine Color Yellow, Urine Appearance Clear, Urine pH 6.0, Ur Specific Guston >= 1.030, Urine Protein Trace, Urine Glucose (UA) Trace, Urine Ketones Trace, Urine Blood 1+, Urine Nitrate Negative, Urine Bilirubin Negative, Urine Urobilinogen 1.0, Ur Leukocyte Esterase 1+ A, Urine RBC 5-10, Urine WBC 5-10, Ur Squamous Epith Cells 3-5, Urine Bacteria 1+ 10/28/20 13:45: Urine HCG, Qual Positive Orders (Tests/Meds): ORDERS Category Date Time Status Urine Culture Stat Micro 10/28/20 13:45 Received US Renal [US Kidney] Stat Ultrasound 10/28/20 14:51 Taken - US Data US Images: Renal ED US Reviewed: Yes: I have reviewed the patient's US results Findings Narrative: No stone or hydro. R renal cyst. Medical Decision Narrative: 25yo F evaluated for symptoms of urinary retention. Patient no acute distress on initial evaluation. Patient is and therefore renal ultrasound is obtained. Urinalysis shows bacteria and 1+ leukoesterase. Ultrasound shows no hydro-, no stone. Is noted to have a renal cyst on the right kidney. Patient be treated with antibiotics for her bacteriuria and discharged home. Patient follow-up with her boat master within the week. General Adult HPI - General Chief complaint: Urogenital-Female Stated complaint: unable to urinate Time Seen by Provider: 10/28/20 14:52 Mode of Arrival: Ambulatory Limitations: No Limitations Description of Symptoms (Recalled from ER Triage Doc. by RN): Pt advises that she is 26 weeks and has been unable to urinate since 2100 last night - History of Present Illness HPI narrative: 25yo F presents emergency department stating her right flank pain and sensation that she needs to void but cannot. This been ongoing for a few days and she did see her PCP but was unable to do so. She has a history of kidney stones and states she has renal colic radiating down her side and into her abdomen. She denies any fever, nausea/vomiting/diarrhea. - Related Data Home Medications Medication Instructions Recorded Confirmed Prenat 115/Iron Fum/Folic/Dss 1 each PO DAILY 09/01/20 10/24/20 [ 19 Tablet] ondansetron 8 mg disintegrating 8 mg PO Q8H PRN 10/20/20 10/24/20 tablet
[2020-10-28 15:45] VITALS: BP 113/72; PULSE 86; RESP 20; TEMP 36.7; O2SAT 99
== END 2020-10-28 15:49 | disposition home or self-care (01) ==
PROVIDERS: Emergency Provider Family Medicine; PCP Nurse Practitioner Family
DX: O23.12 Infections of bladder in pregnancy, second trimester (principal); Z3A.26 26 weeks gestation of pregnancy; F41.9 Anxiety disorder, unspecified
CPT/HCPCS: 76770; 81001; 81025; 87086; 99282

== ENCOUNTER 2020-11-07 08:03 | Outpatient (CLI) | payer MEDICAID, SELFPAY ==
[2020-11-07 08:26] LABS: Basophils % 0.3 % (0.1-2.0); Eosinophils # 0.2 K/mm3 (0.0-0.4); Eosinophils % 1.4 % (0.1-12.0); Hematocrit 34.8 % (37.0-47.0); Hemoglobin 11.2 g/dL (12.2-16.2); Lymphocytes # 2.3 K/mm3 (0.7-4.5); Mean Corpuscular HGB Conc 32.3 g/dL (31.8-35.4); Mean Corpuscular Hemoglobin 26.2 pg (27.0-31.2); Monocytes # 0.5 K/mm3 (0.1-1.0); Monocytes % 3.7 % (1.7-9.3); Neutrophils # 11.3 K/mm3 (1.8-7.8); Neutrophils % 78.7 % (37.0-80.0); Platelet Count 227 K/mm3 (142-424); Red Blood Count 4.29 M/mm3 (4.20-5.40); Red Cell Distribution Width 14.5 % (11.5-17.5); White Blood Count 14.4 K/mm3 (4.8-10.8)
[2020-11-07 08:48] LABS: Glucose,Fasting 112 mg/dl (74-100)
[2020-11-07 10:06] VITALS: BP 119/73; PULSE 100; RESP 18; TEMP 36.4; O2SAT 100
[2020-11-07 10:25] VITALS: BP 122/69; PULSE 98; RESP 16; TEMP 36.4; O2SAT 100
[2020-11-07 10:32] LABS: Glucose 1 Hour 200 mg/dL (74-100)
== END 2020-11-07 10:25 | disposition home or self-care (01) ==
PROVIDERS: Visit Provider Obstetrics & Gynecology
DX: Z34.90 Encounter for supervision of normal pregnancy, unspecified, unspecified trimester (principal)
CPT/HCPCS: 36415; 82951; 85025; 96372; J2790

== ENCOUNTER → 2020-11-14 08:58 | Outpatient (CLI) | payer MEDICAID, SELFPAY ==
[2020-11-14 09:25] LABS: Glucose,Fasting 124 mg/dl (74-100)
[2020-11-14 10:52] LABS: Glucose 1 Hour 239 mg/dL (74-100)
[2020-11-14 11:52] LABS: Glucose 2 Hour 217 mg/dL (74-100)
[2020-11-14 12:59] LABS: Glucose 3 Hour 163 mg/dL (74-100)
== END ==
PROVIDERS: Visit Provider Obstetrics & Gynecology
DX: Z34.90 Encounter for supervision of normal pregnancy, unspecified, unspecified trimester (principal); R73.09 Other abnormal glucose
CPT/HCPCS: 36415; 82951

== ENCOUNTER 2020-11-15 19:34 | Outpatient (CLI) | payer MEDICAID, SELFPAY ==
[2020-11-15 19:44] VITALS: BMI 30.2
[2020-11-15 20:00] VITALS: BP 112/76; PULSE 116; RESP 18; TEMP 37.4; O2SAT 97; BMI 30.2
[2020-11-15 20:11] LABS: Microscopic, Urine URINE MICROSCOPIC (MICROSCOPIC)
[2020-11-15 20:14] LABS: Appearance,Urine SL CLOUDY (Clear); Bilirubin,Urine Negative (Negative); Blood, Urine TRACE-I (Negative); Color,Urine YELLOW (Yellow); Glucose,Urine (UA) 1+ (Negative); Ketones,Urine Negative (Negative); Leukocyte Esterase,Urine Negative (Negative); Nitrate,Urine Negative (Negative); Protein,Urine TRACE (Negative); Specific Gravity, Urine >= 1.030 (1.005-1.030); Urobilinogen,Urine 0.2 EU/dl (0.2)
[2020-11-15 20:20] LABS: POC Glucose,Bedside 152 (70-110)
[2020-11-15 20:26] LABS: Amphetamine/Metha Screen,Urine Negative ng/ml (<1000)
[2020-11-15 20:27] LABS: Barbiturates Screen,Urine Negative ng/ml (<200); Benzodiazepines Screen,Urine Negative ng/ml (<200)
[2020-11-15 20:28] LABS: Cannabinoid Screen,Urine Negative ng/ml (<50)
[2020-11-15 20:29] LABS: Cocaine Screen,Urine Negative ng/ml (<300); Methadone Screen,Urine Negative ng/ml (<300)
[2020-11-15 20:30] LABS: Opiate Screen,Urine Negative ng/ml (<300)
[2020-11-15 20:31] LABS: Phencyclidine Screen,Urine Negative ng/ml (<25)
[2020-11-15 20:39] LABS: Bacteria,Urine Trace /lpf; Calcium Oxalate Crystals,Urine 3+ /lpf; Squamous Epithelial Cell,Urine Occasional #/hpf (0-5)
== END 2020-11-15 20:50 | disposition home or self-care (01) ==
LOC: OBOUT 19:37 → OB 19:38
PROVIDERS: PCP Obstetrics & Gynecology; Visit Provider Obstetrics & Gynecology
DX: O26.893 Other specified pregnancy related conditions, third trimester (principal); Z3A.28 28 weeks gestation of pregnancy; R42 Dizziness and giddiness; H53.2 Diplopia
CPT/HCPCS: 59025; 80305; 81001; 82962; G0463

== ENCOUNTER 2020-12-07 17:34 | Outpatient (CLI) | payer MEDICAID, SELFPAY ==
[2020-12-07 18:02] VITALS: BMI 31.6
[2020-12-07 18:16] VITALS: BMI 32.1
[2020-12-07 18:43] LABS: Microscopic, Urine URINE MICROSCOPIC (MICROSCOPIC)
[2020-12-07 18:47] LABS: Appearance,Urine SL CLOUDY (Clear); Bilirubin,Urine Negative (Negative); Blood, Urine Negative (Negative); Color,Urine YELLOW (Yellow); Glucose,Urine (UA) Negative (Negative); Ketones,Urine TRACE (Negative); Leukocyte Esterase,Urine 2+ (Negative); Nitrate,Urine Negative (Negative); Protein,Urine TRACE (Negative); Specific Gravity, Urine >= 1.030 (1.005-1.030)
[2020-12-07 18:53] VITALS: BP 107/69; PULSE 91; RESP 18; TEMP 36.8; O2SAT 98
[2020-12-07 18:58] LABS: Barbiturates Screen,Urine Negative ng/ml (<200)
[2020-12-07 18:59] LABS: Amphetamine/Metha Screen,Urine Negative ng/ml (<1000); Benzodiazepines Screen,Urine Negative ng/ml (<200)
[2020-12-07 19:00] LABS: Cocaine Screen,Urine Negative ng/ml (<300)
[2020-12-07 19:01] LABS: Cannabinoid Screen,Urine Negative ng/ml (<50); Methadone Screen,Urine Negative ng/ml (<300)
[2020-12-07 19:02] LABS: Bacteria,Urine 3+ /lpf; Opiate Screen,Urine Negative ng/ml (<300)
[2020-12-07 19:03] LABS: Phencyclidine Screen,Urine Negative ng/ml (<25)
== END 2020-12-07 19:45 | disposition home or self-care (01) ==
LOC: OBOUT 17:40 → OB 17:41
PROVIDERS: PCP Obstetrics & Gynecology; Visit Provider Obstetrics & Gynecology
DX: O26.893 Other specified pregnancy related conditions, third trimester (principal); Z3A.32 32 weeks gestation of pregnancy; R10.13 Epigastric pain; R11.2 Nausea with vomiting, unspecified
CPT/HCPCS: 59025; 80305; 81001; 87086; G0463

== ENCOUNTER 2020-12-19 12:58 | Outpatient (CLI) | payer MEDICAID, SELFPAY ==
[2020-12-19 13:27] VITALS: BMI 32.3
[2020-12-19 13:46] VITALS: BP 107/73; PULSE 98; RESP 16; TEMP 36.7; O2SAT 98; BMI 32.3
[2020-12-19 13:56] LABS: Microscopic, Urine URINE MICROSCOPIC (MICROSCOPIC)
[2020-12-19 14:17] LABS: Appearance,Urine CLEAR (Clear); Bilirubin,Urine Negative (Negative); Blood, Urine Negative (Negative); Color,Urine YELLOW (Yellow); Glucose,Urine (UA) Negative (Negative); Ketones,Urine Negative (Negative); Leukocyte Esterase,Urine 2+ (Negative); Nitrate,Urine Negative (Negative); Protein,Urine Negative (Negative); Urobilinogen,Urine 0.2 EU/dl (0.2)
[2020-12-19 14:25] LABS: Barbiturates Screen,Urine Negative ng/ml (<200)
[2020-12-19 14:26] LABS: Benzodiazepines Screen,Urine Negative ng/ml (<200)
[2020-12-19 14:27] LABS: Amphetamine/Metha Screen,Urine Negative ng/ml (<1000)
[2020-12-19 14:28] LABS: Cannabinoid Screen,Urine Negative ng/ml (<50); Cocaine Screen,Urine Negative ng/ml (<300)
[2020-12-19 14:29] LABS: Methadone Screen,Urine Negative ng/ml (<300); Opiate Screen,Urine Negative ng/ml (<300)
[2020-12-19 14:30] LABS: Phencyclidine Screen,Urine Negative ng/ml (<25)
[2020-12-19 14:34] LABS: Fetal Membrane Rupture (Rapid) Negative (Negative)
[2020-12-19 14:37] LABS: Bacteria,Urine 2+ /lpf
== END 2020-12-19 14:50 | disposition home or self-care (01) ==
LOC: OBOUT 12:59 → OB 13:00
PROVIDERS: PCP Nurse Practitioner Family; Visit Provider Obstetrics & Gynecology
DX: O26.893 Other specified pregnancy related conditions, third trimester (principal); Z3A.33 33 weeks gestation of pregnancy
CPT/HCPCS: 59025; 80305; 81001; 84112; 87086; G0463

== ENCOUNTER → 2021-01-05 16:22 | Outpatient (CLI) | payer MEDICAID, SELFPAY | PROVIDERS: Visit Provider Obstetrics & Gynecology | DX: Z34.90 Encounter for supervision of normal pregnancy, unspecified, unspecified trimester (principal) | CPT/HCPCS: 86403 ==

== ENCOUNTER 2021-01-07 12:23 | Outpatient (CLI) | payer MEDICAID, SELFPAY ==
[2021-01-07 12:48] VITALS: BMI 32.5
[2021-01-07 12:50] VITALS: BP 107/72; PULSE 111; RESP 20; TEMP 37.1; O2SAT 97; BMI 32.5
[2021-01-07 13:08] LABS: Microscopic, Urine URINE MICROSCOPIC (MICROSCOPIC)
[2021-01-07 13:15] LABS: Appearance,Urine SL CLOUDY (Clear); Bilirubin,Urine Negative (Negative); Blood, Urine Negative (Negative); Color,Urine YELLOW (Yellow); Glucose,Urine (UA) Negative (Negative); Ketones,Urine Negative (Negative); Leukocyte Esterase,Urine 3+ (Negative); Nitrate,Urine Negative (Negative); Protein,Urine Negative (Negative); Specific Gravity, Urine 1.015 (1.005-1.030); Urobilinogen,Urine 0.2 EU/dl (0.2)
[2021-01-07 13:24] LABS: Benzodiazepines Screen,Urine Negative ng/ml (<200)
[2021-01-07 13:25] LABS: Amphetamine/Metha Screen,Urine Negative ng/ml (<1000); Barbiturates Screen,Urine Negative ng/ml (<200)
[2021-01-07 13:26] LABS: Methadone Screen,Urine Negative ng/ml (<300)
[2021-01-07 13:27] LABS: Cannabinoid Screen,Urine Negative ng/ml (<50); Cocaine Screen,Urine Negative ng/ml (<300)
[2021-01-07 13:28] LABS: Opiate Screen,Urine Negative ng/ml (<300)
[2021-01-07 13:29] LABS: Phencyclidine Screen,Urine Negative ng/ml (<25)
[2021-01-07 13:35] LABS: Bacteria,Urine 1+ /lpf; WBC,Urine TNTC #/hpf (0-3)
[2021-01-07 14:11] LABS: Basophils % 0.2 % (0.1-2.0); Eosinophils # 0.1 K/mm3 (0.0-0.4); Eosinophils % 1.1 % (0.1-12.0); Hematocrit 31.2 % (37.0-47.0); Hemoglobin 10.4 g/dL (12.2-16.2); Lymphocytes # 2.1 K/mm3 (0.7-4.5); Lymphocytes % 16.4 % (10-50); Mean Corpuscular HGB Conc 33.3 g/dL (31.8-35.4); Mean Corpuscular Hemoglobin 24.5 pg (27.0-31.2); Mean Corpuscular Volume 73.8 fl (81-99); Mean Platelet Volume 8.6 fl (7.4-10.4); Monocytes # 0.5 K/mm3 (0.1-1.0); Neutrophils # 9.8 K/mm3 (1.8-7.8); Neutrophils % 78.2 % (37.0-80.0); Platelet Count 259 K/mm3 (142-424); Red Blood Count 4.22 M/mm3 (4.20-5.40); Red Cell Distribution Width 15.7 % (11.5-17.5); White Blood Count 12.5 K/mm3 (4.8-10.8)
[2021-01-07 14:22] LABS: Anion Gap 10.1 mEq/L (5-15); Blood Urea Nitrogen 7 mg/dl (7-17); Calcium 8.9 mg/dl (8.4-10.2); Carbon Dioxide 21 mmol/L (22.0-30.0); Chloride 106 mmol/L (98-107); Creatinine Clearance Estimated 426 mL/min (50-200); Estimated Glomerular Filt Rate 271 ml/min (>60); GFR (African American) 328 ML/MIN (>60); Glucose 83 mg/dl (74-100); Potassium 4.1 mmoL/L (3.5-5.1); Sodium 133 mmol/L (136-145)
== END 2021-01-07 14:56 | disposition home or self-care (01) ==
LOC: OBOUT 12:24 → OB 12:26
PROVIDERS: PCP Nurse Practitioner Family; Visit Provider Nurse Practitioner Obstetrics & Gynecology
DX: O26.893 Other specified pregnancy related conditions, third trimester (principal); Z3A.36 36 weeks gestation of pregnancy; R51.9 Headache, unspecified; R10.9 Unspecified abdominal pain
CPT/HCPCS: 59025; 80048; 80305; 81001; 85025; 87086; 96365; 96367; G0463; J0595

== ENCOUNTER 2021-01-11 14:44 | Outpatient (CLI) | payer MEDICAID, SELFPAY ==
[2021-01-11 15:08] VITALS: BP 129/86; PULSE 98; RESP 18; TEMP 37.1; O2SAT 99; BMI 32.5
[2021-01-11 15:20] VITALS: BP 129/86; PULSE 98; RESP 18; TEMP 37.1; O2SAT 99; BMI 32.4
[2021-01-11 15:34] LABS: Microscopic, Urine URINE MICROSCOPIC (MICROSCOPIC)
[2021-01-11 15:37] LABS: Appearance,Urine CLEAR (Clear); Bilirubin,Urine Negative (Negative); Blood, Urine Negative (Negative); Color,Urine YELLOW (Yellow); Glucose,Urine (UA) 3+ (Negative); Ketones,Urine TRACE (Negative); Leukocyte Esterase,Urine TRACE (Negative); Nitrate,Urine Negative (Negative); PH,Urine 6.5 (5.0-8.5); Protein,Urine Negative (Negative); Specific Gravity, Urine 1.025 (1.005-1.030); Urobilinogen,Urine 0.2 EU/dl (0.2)
[2021-01-11 15:50] LABS: Barbiturates Screen,Urine Negative ng/ml (<200)
[2021-01-11 15:51] LABS: Benzodiazepines Screen,Urine Negative ng/ml (<200)
[2021-01-11 15:52] LABS: Amphetamine/Metha Screen,Urine Negative ng/ml (<1000); Cannabinoid Screen,Urine Negative ng/ml (<50)
[2021-01-11 15:53] LABS: Cocaine Screen,Urine Negative ng/ml (<300); Methadone Screen,Urine Negative ng/ml (<300)
[2021-01-11 15:54] LABS: Opiate Screen,Urine Negative ng/ml (<300)
[2021-01-11 15:55] LABS: Phencyclidine Screen,Urine Negative ng/ml (<25)
[2021-01-11 16:23] LABS: Bacteria,Urine 1+ /lpf
== END 2021-01-11 16:25 | disposition home or self-care (01) ==
LOC: OBOUT 14:45 → OB 14:45
PROVIDERS: PCP Nurse Practitioner Family; Visit Provider Obstetrics & Gynecology
DX: O36.8130 Decreased fetal movements, third trimester, not applicable or unspecified (principal); Z3A.37 37 weeks gestation of pregnancy
CPT/HCPCS: 59025; 80305; 81001; G0463

== ENCOUNTER → 2021-01-13 12:49 | Outpatient (CLI) | payer MEDICAID, SELFPAY ==
--- NOTE | 2021-01-13 12:49 | US_ITS ---
PROCEDURE: US OB BIOPHYSICAL PROFILE CLINICAL INDICATION: LGA TECHNIQUE: FINDINGS: The following parameters are obtained: There is a single live fetus which is in cephalic presentation. The placenta is posterior and fundal in implantation and grade 2. Average ultrasound age is Average 38weeks 5days Estimated due date by ultrasound is 01/22/2021. Estimated weight is 3,522g/7 lb 12 oz. This is 87th percentile. BPD: 39weeks 3days OFD: 39weeks 3days HC: 38 weeks 1 day AC: 38 weeks 5 days FL: 38 weeks 0 days heart rate: 149bpm bpm. HC/AC: 0.96 Cephalic index: 0.84 FL/BPD: 0.77 FL/AC: 0.21 Amniotic fluid index: 10.99cm Qualitative AFV: 2 breathing movements: 2 Gross body movements: 2 Tone: 2 Biophysical profile score: 8 IMPRESSION: Single live intrauterine gestation at 38 weeks 5 days with an estimated weight of 3522 g/7 lb 12 oz which is 87th percentile. There is cephalic position. HILLARY is 11 cm and biophysical profile is 8 of 8. Dictated by: Cedric Blue MD 01/13/2021 17:25 Cedric Blue MD in [place] 01/13/2021 17:25
== END ==
PROVIDERS: PCP Nurse Practitioner Family; Visit Provider Obstetrics & Gynecology
DX: Z34.90 Encounter for supervision of normal pregnancy, unspecified, unspecified trimester (principal)
CPT/HCPCS: 76816; 76819

== ENCOUNTER → 2021-01-19 13:14 | Outpatient (CLI) | payer MEDICAID, SELFPAY ==
--- NOTE | 2021-01-19 13:14 | US_ITS ---
PROCEDURE: US OB BIOPHYSICAL PROFILE CLINICAL INDICATION: LGA TECHNIQUE: FINDINGS: There is a single live fetus present in the cephalic presentation. heart and body motion noted. Amniotic fluid index is normal at 14 cm. The placenta is posterior and fundal and grade 3. Biophysical profile is 8 of 8. Biometric measurements not obtained. IMPRESSION: There is a single live fetus present in the cephalic presentation. heart and body motion noted. Amniotic fluid index is normal at 14 cm. The placenta is posterior and fundal and grade 3. Biophysical profile is 8 of 8. Dictated by: Cedric Blue MD 01/19/2021 15:35 Cedric Blue MD in [place] 01/19/2021 15:35
== END ==
PROVIDERS: PCP Nurse Practitioner Family; Visit Provider Obstetrics & Gynecology
DX: Z34.90 Encounter for supervision of normal pregnancy, unspecified, unspecified trimester (principal)
CPT/HCPCS: 76819

== ENCOUNTER 2021-01-20 17:26 | Outpatient (CLI) | payer MEDICAID, SELFPAY ==
[2021-01-20 18:10] VITALS: BMI 32.4
[2021-01-20 18:35] LABS: Microscopic, Urine URINE MICROSCOPIC (MICROSCOPIC)
[2021-01-20 18:37] VITALS: BP 110/69; PULSE 102; RESP 17; TEMP 36.9; O2SAT 99; BMI 32.4
[2021-01-20 19:34] LABS: Appearance,Urine CLEAR (Clear); Bilirubin,Urine Negative (Negative); Blood, Urine Negative (Negative); Color,Urine YELLOW (Yellow); Glucose,Urine (UA) Negative (Negative); Ketones,Urine Negative (Negative); Leukocyte Esterase,Urine TRACE (Negative); Nitrate,Urine Negative (Negative); Protein,Urine TRACE (Negative); Specific Gravity, Urine 1.025 (1.005-1.030); Urobilinogen,Urine 0.2 EU/dl (0.2)
[2021-01-20 19:48] LABS: Opiate Screen,Urine Negative ng/ml (<300); Phencyclidine Screen,Urine Negative ng/ml (<25)
[2021-01-20 19:55] LABS: Amphetamine/Metha Screen,Urine Negative ng/ml (<1000)
[2021-01-20 19:56] LABS: Barbiturates Screen,Urine Negative ng/ml (<200)
[2021-01-20 19:57] LABS: Benzodiazepines Screen,Urine Negative ng/ml (<200); Cannabinoid Screen,Urine Negative ng/ml (<50)
[2021-01-20 19:58] LABS: Cocaine Screen,Urine Negative ng/ml (<300)
[2021-01-20 20:01] LABS: Methadone Screen,Urine Negative ng/ml (<300)
[2021-01-20 20:48] LABS: Bacteria,Urine 2+ /lpf; Mucus,Urine 1+ /lpf
== END 2021-01-20 18:35 | disposition home or self-care (01) ==
LOC: OBOUT 17:28 → OB 17:29
PROVIDERS: PCP Obstetrics & Gynecology; Visit Provider Obstetrics & Gynecology
DX: O60.03 Preterm labor without delivery, third trimester (principal); Z3A.38 38 weeks gestation of pregnancy
CPT/HCPCS: 59025; 80305; 81001; 87086; G0463

== ENCOUNTER → 2021-01-24 09:20 | Outpatient (CLI) | payer MEDICAID, SELFPAY ==
[2021-01-24 09:38] LABS: Basophils % 0.4 % (0.1-2.0); Eosinophils # 0.1 K/mm3 (0.0-0.4); Eosinophils % 0.9 % (0.1-12.0); Hematocrit 34.5 % (37.0-47.0); Hemoglobin 11.6 g/dL (12.2-16.2); Lymphocytes # 2.2 K/mm3 (0.7-4.5); Lymphocytes % 27.3 % (10-50); Mean Corpuscular HGB Conc 33.6 g/dL (31.8-35.4); Mean Corpuscular Volume 71.5 fl (81-99); Mean Platelet Volume 8.7 fl (7.4-10.4); Monocytes # 0.3 K/mm3 (0.1-1.0); Monocytes % 4.3 % (1.7-9.3); Neutrophils # 5.4 K/mm3 (1.8-7.8); Neutrophils % 67.2 % (37.0-80.0); Platelet Count 219 K/mm3 (142-424); Red Blood Count 4.82 M/mm3 (4.20-5.40)
[2021-01-24 13:47] LABS: Alanine Aminotransferase 19 U/L (12-78); Albumin Level 3.5 g/dl (3.5-5.0); Albumin/Globulin Ratio 1.2 (1.1-1.8); Alkaline Phosphatase 174 U/L (38-126); Anion Gap 11.2 mEq/L (5-15); Aspartate Amino Transferase 36 U/L (14-36); Bilirubin,Total 0.2 mg/dl (0.2-1.3); Blood Urea Nitrogen 8 mg/dl (7-17); Calcium 8.6 mg/dl (8.4-10.2); Carbon Dioxide 23 mmol/L (22.0-30.0); Chloride 103 mmol/L (98-107); Estimated Glomerular Filt Rate 150 ml/min (>60); GFR (African American) 182 ML/MIN (>60); Globulin 2.9 g/dL (1.3-3.2); Glucose 74 mg/dl (74-100); Potassium 4.2 mmoL/L (3.5-5.1); Sodium 133 mmol/L (136-145); Total Protein,Serum 6.4 g/dl (6.3-8.2)
== END ==
PROVIDERS: Visit Provider Obstetrics & Gynecology
DX: Z34.90 Encounter for supervision of normal pregnancy, unspecified, unspecified trimester (principal)
CPT/HCPCS: 36415; 80053; 85025; 86850; C9803; U0003; U0005

== ENCOUNTER 2021-01-26 04:54 | Inpatient (IN) | payer MEDICAID, SELFPAY ==
[2021-01-26] VITALS (9 sets, daily range): BP systolic 110–130; BP diastolic 58–91; PULSE 58–98; RESP 12–18; TEMP 36.2–36.7; O2SAT 81–100; BMI 32.5
[2021-01-26 05:43] LABS: POC Glucose,Bedside 76 (70-110)
[2021-01-26 05:44] LABS: Influenza A, PCR Not Detected (NotDetected); Influenza B, PCR Not Detected (NotDetected); Microscopic, Urine URINE MICROSCOPIC (MICROSCOPIC)
[2021-01-26 05:50] LABS: Appearance,Urine CLOUDY (Clear); Blood, Urine Negative (Negative); Color,Urine YELLOW (Yellow); Glucose,Urine (UA) Negative (Negative); Ketones,Urine Negative (Negative); Leukocyte Esterase,Urine TRACE (Negative); Nitrate,Urine Negative (Negative); Protein,Urine TRACE (Negative); Specific Gravity, Urine >= 1.030 (1.005-1.030)
[2021-01-26 05:57] LABS: Bilirubin,Urine 1+ (Negative)
[2021-01-26 05:58] LABS: Barbiturates Screen,Urine Negative ng/ml (<200)
[2021-01-26 05:59] LABS: Benzodiazepines Screen,Urine Negative ng/ml (<200); Squamous Epithelial Cell,Urine 20-50 #/hpf (0-5)
[2021-01-26 06:00] LABS: Amphetamine/Metha Screen,Urine Negative ng/ml (<1000); Methadone Screen,Urine Negative ng/ml (<300)
[2021-01-26 06:01] LABS: Cannabinoid Screen,Urine Negative ng/ml (<50); Cocaine Screen,Urine Negative ng/ml (<300)
[2021-01-26 06:02] LABS: Opiate Screen,Urine Negative ng/ml (<300)
[2021-01-26 06:03] LABS: Phencyclidine Screen,Urine Negative ng/ml (<25)
[2021-01-26 06:05] LABS: Coronavirus 19, PCR Detected (NotDetected)
--- NOTE | 2021-01-26 07:05 | HMH.ANESCL ---
[facility] Anesthesia Checklist - Patient Identification Patient Identification: Arm Band - Structural Data Admitted From: Home Planned Operative Procedure/s: C/S Consent for Planned Operative Procedure(s) Verified: Yes - NPO Status Verified Time NPO: 00:00 - Airway Assessment C-Spine Mobility Assessed: Yes TMJ Mobility Assessed: Yes Dentition: Good Dentition - Neurological Assessment Level of Consciousness: Awake Hx Seizures: No Numbness or tingling in extremities: No - Anesthesia Plan Anesthesia Risk discussed: Yes Anesthesia Plan: Verified ASA Class: II Anesthesia Type: Spinal [facility] History I have reviewed the patient's past medical history: Yes Medical History: Reports:: Anxiety, Asthma, Diabetes Mellitus Type 2, Kidney Stones, Migraine Denies:: Diabetes Mellitus Type 1 *Have you ever received a pneumonia vaccine?: No *Have you received a flu vaccine this season?: No Other Medical History: Reports: Anemia, Other Anesthesia experience/problems:: None Laterality Cases: Right: Arthroscopy Knee Other Surgeries: Yes: No Previous Surgery, Colonoscopy, , EGD, Other Amputation: No Fractures: No - *Social History Smoking Status: Never smoker Alcohol Intake: current Alcohol Intake Frequency:: holidays/special occasions only Substance Use Type: former substance user, crack/cocaine *Occupational Status:: unemployed Housing: house Household Members: family *Travel in the last 8 weeks: None - Psychiatric History Pschychiatric History:: Reports:: Anxiety Family Hx:: Stroke, Coronary Artery Disease, Hypertension, Cancer Para: 2
--- NOTE | 2021-01-26 07:36 | HMH.HP ---
*Admission Date: 01/26/21 *Chief complaint: Elective repeat c section *History of present illness: 25 yo @ 39 1/7 weeks gestation scheduled for elective repeat c section. complicated by previous c section x2, GDMA2 managed with insulin, Rh negative maternal status, anemia and rubella non-immune maternal status. GDMA2 has been managed by [facility] in [place] and fasting blood sugar 76 on the morning of delivery. testing has been reassuring. UDS + THC at first visit but subsequent UDS negative. She received Rhogam at 28 weeks and has been taking supplemental iron for mild anemia. Preop admission labs + covid 19 but patient is asymptomatic with no respiratory symptoms. She was seen in the [place] ED on 01/23/21 with complaint of chest pain and had positive Covid test. She was treated with monoclonal antibodies and discharged home after negative work up for chest pain. She denies chest pain today. [facility] History I have reviewed the patient's past medical history: Yes Medical History: Reports:: Anxiety, Asthma, Diabetes Mellitus Type 2, Kidney Stones, Migraine Denies:: Diabetes Mellitus Type 1, Seizures *Have you ever received a pneumonia vaccine?: No *Have you received a flu vaccine this season?: No Other Medical History: Reports: Anemia, Other Anesthesia experience/problems:: None Laterality Cases: Right: Arthroscopy Knee Other Surgeries: Yes: No Previous Surgery, Colonoscopy, , EGD, Other Amputation: No Fractures: No - *Social History Smoking Status: Never smoker Alcohol Intake: current Alcohol Intake Frequency:: holidays/special occasions only Substance Use Type: former substance user, marijuana, crack/cocaine *Occupational Status:: unemployed Housing: house Household Members: family *Travel in the last 8 weeks: None - Psychiatric History Pschychiatric History:: Reports:: Anxiety Family Hx:: Stroke, Coronary Artery Disease, Hypertension, Cancer : 3 Para: 2 Review of Systems - Review of Systems Review of systems:: pertinent systems reviewed and negative unless documented below - Constitutional Denies chills, Denies fever(s) - *Cardiovascular Denies chest pain - *Respiratory Denies cough, Denies shortness of breath - *Genitourinary Denies abnormal vaginal bleeding Meds Home Medications Medication Instructions Recorded Confirmed Type promethazine 12.5 mg tablet 12.5 mg PO TID PRN #30 tab 06/24/20 01/26/21 Rx Prenat 115/Iron Fum/Folic/Dss 1 each PO DAILY 09/01/20 01/26/21 History [ 19 Tablet] omeprazole 20 mg capsule,delayed 20 mg PO DAILY #30 cap 10/14/20 01/26/21 Rx release ondansetron 8 mg disintegrating 8 mg PO Q8H PRN 10/20/20 01/26/21 History tablet insulin glargine 100 unit/mL 20 unit SQ BID 12/09/20 01/26/21 History subcutaneous solution Blood Sugar Diagnostic [OneTouch See Rx Instructions .ROUTE 01/11/21 01/26/21 History Verio test strips] DIRECTED Blood-Glucose Meter See Rx Instructions .ROUTE 01/11/21 01/26/21 History DIRECTED Insulin Glargine,Hum.rec.anlog 24 unit SQ HS 01/11/21 01/26/21 History [Basaglar Kwikpen U-100] Insulin Lispro [Humalog] 16 unit SQ DIRECTED 01/11/21 01/26/21 History Insulin Lispro [Humalog] 18 units SQ DIRECTED 01/11/21 01/26/21 History Blood Sugar Diagnostic [Blood See Rx Instructions .ROUTE 01/26/21 01/26/21 History Glucose Test] DIRECTED Lancets See Rx Instructions .ROUTE 01/26/21 01/26/21 History DIRECTED Allergies Allergy/AdvReac Type Severity Reaction Status Date / Time No Known Allergies Allergy Verified 01/19/21 14:27 Exam Vital signs and Labs for Last 24 Hours: Temp Pulse Resp BP Pulse Ox 98.0 F 82 18 110/82 99 01/26/21 06:06 01/26/21 06:06 01/26/21 06:06 01/26/21 06:06 01/26/21 06:06 Laboratory Results - last 24 hr 01/26/21 05:05: Urine Color Yellow, Urine Appearance Cloudy, Urine pH 6.0, Ur Specific [place] >= 1.030, Urine Pr
--- NOTE | 2021-01-26 09:26 | HMH.ANESI ---
[facility] Anesthesia Record Part I Intake, IV Amount: 1,500 Estimated blood loss (mL): 800 Urine output (mL): 150 Blood Pressure: 117/91 SaO2: 81 Pulse Rate: 98 Respiratory Rate: 14 Temperature: 97.1 F Patient is:: Awake Stable to PACU at:: 09:22
--- NOTE | 2021-01-26 09:37 | P.OP_ITS ---
Date of procedure: 01/26/21 Pre-op Diagnosis:: 1. 39 1/7 weeks 2. Previous c section x 2 3. GDMA2 4. Covid 19 positive 5. Anemia 6. Rh negative maternal status 7. Rubella non-immune maternal status 8. THC abuse Post-op Diagnosis:: same Procedure performed:: Low Transverse C Section Surgeon:: Jie Cummings MD Water Treatment Specialist(s):: Fely Adamson SURGICAL SALES REPRESENTATIVE:: Curt Connors Anesthesia: spinal (with added MAC) Estimated blood loss (mL): 800 Operative findings:: Female in vertex presentation Apgars 6 & 7 grossly normal appearing placenta, intact at delivery moderate vesico-uterine adhesions Operative note:: The patient was taken to the OR and spinal was administered without difficulty. She was prepped and draped in normal sterile fashion. A pfannenstiel skin incision was made with the scalpel and carried down to the fascia. The fascia was incised in the midline and sharply dissected off the rectus muscles. The muscles were in the midline and the peritoneum was entered sharply and extended bluntly. The Rafal-O self retaining retractor was placed in the abdomen and a bladder flap was created. The bladder was adhesed densely to the lower uterine segment, requiring moderate sharp and blunt dissection. The uterus was incised in the lower uterine segment in a transverse fashion and extended bluntly. Amniotomy was performed and clear fluid noted. The infant was delivered in controlled fashion, without complication or shoulder dystocia. The was vigorous at and handed to awaiting senior court office assistant and nursing staff for evaluation after the cord was clamped and cut. Cord blood was collected and a cord segment was preserved. The placenta was manually extracted and noted to be intact. An accessory lobe had been noted on 20 week ultrasound and the uterine cavity was explored manually to ensure no retained placental tissue. The uterus was repaired with 0-vicryl in a running/locked fashion, in 2 layers. The peritoneum was closed with 2-0 vicryl in a running fashion. The fascia was closed with #1 vicryl in a running fashion. The subcutaneous fat was closed with 2-0 vicryl in an interrupted fashion. The skin was closed with justin. The patient tolerated the procedure well. Sponge, lap, needle and instrument counts were correct x 2. TAP block was placed by anesthesia before leaving OR. She was taken to PACU awake and in stable condition. Condition: stable Disposition: PACU Specimens:: placenta Complications:: none
[2021-01-26 10:26] LABS: POC Glucose,Bedside 72 (70-110)
[2021-01-26 10:54] LABS: Microscopic,Cath URINE MICROSCOPIC (MICROSCOPIC)
[2021-01-26 10:58] LABS: Appearance,Urine/Cath CLEAR (Clear); Bilirubin,Cath Negative (Negative); Blood, Urine/Cath Negative (Negative); Color,Urine/Cath YELLOW (Yellow); Glucose,Urine/Cath (UA) Negative (Negative); Ketones,Urine/Cath Negative (Negative); Leukocyte Esterase,Cath Negative (Negative); Nitrate,Cath Negative (Negative); PH,Urine/Cath 6.5 (5.0-8.5); Protein,Urine/Cath TRACE (Negative); Specific Gravity, Urine/Cath 1.025 (1.005-1.030); Urobilinogen,Cath 0.2 EU/dl (0.2)
[2021-01-26 11:11] LABS: WBC,Urine/Cath Occasional #/hpf (0-3)
--- NOTE | 2021-01-26 12:40 | HMH.ANESII ---
[facility] Anesthesia Record Part II Discharge Time: 10:00 Destination: Obstetric PACU nurse assessment reviewed?: Yes Patient Condition:: Good Anesthesia Complications:: None Swallowing reflex intact?: Yes Cyanosis?: No Blood Pressure: 117/81 Pulse Rate: 58 Temperature: 97.2 F Mental Status: Alert & Oriented Pain level:: 7 Nausea and/or vomitting:: None Intake, IV Amount: 0
--- NOTE | 2021-01-26 14:28 | SW/DCPLANNER ---
RECEIVED REFERRAL FOR THIS PATIENT THAT ONE VISIT DURING WAS POSITIVE FOR THC... PATIENT PRESENTED INTO THE HOSPITAL FOR AND DELIVERED A LIVE BORN FEMALE. PATIENT TESTED POSITIVE FOR COVID AND IS IN ISOLATION.. SHE HAS NOT HAD ANY OTHER POSITIVES BUT DID HAVE LATE VISITS... HER MOTHER IS PRESENT IN THE ROOM AND WILL BE STAYING WITH HER THE WHOLE TIME.. PATIENT HAS 2 OTHER CHILDREN A BOY 7 YRS OLD AND GIRL THAT IS 3 YRS OLD.. PATIENT TOLD THE NURSE SHE HAD A VISIT FROM PACKING ROOM INSPECTOR REGARDING CHICKENS BEING KEPT IN THE HOME WITH SPECULATIONS OF HAVING A DIRTY HOUSE.. NOT SURE IF SHE HAD ANY OTHER ISSUES WITH THEM. SHE GETS WIC SERVICES AND ALSO FOODSTAMPS. PATIENT CHOSE DR HAYS THE INFANTS DOCTOR AND STATED SHE HAS EVERYTHING SHE NEEDS, CARSEAT, CLOTHES, DIAPERS ETC., I DID MAKE A REPORT SINCE PATIENT STATED SHE HAS HAD SOME INVOLVEMENT WITH PACKING ROOM INSPECTOR RECENTLY ID# [id number].. DISCHARGE DATE COULD BE THE MIDDLE OF THE WEEK PENDING NO SETBACKS...
--- NOTE | 2021-01-26 14:47 | P.CONPHA_ITS ---
[facility] Pharmacy VTE Monitoring - Patient Demographics Admission date: 01/26/21 Report Date: 01/26/21 Time: 14:47 Allergies/Adverse Reactions: Patient Allergies No Known Allergies Allergy (Verified 01/19/21 14:27) Height: 1.7 m Weight: 94.347 kg Patient Problems: Current Active Problems COVID-19 affecting , antepartum (Acute) 39 weeks gestation of (Acute) Anemia complicating (Acute) White classification A2 gestational diabetes mellitus (GDM) (Acute) Placenta succenturiata (Acute) Rh negative status during (Acute) Rubella non-immune status, antepartum (Acute) Positive urine drug screen (Acute) Previous section (Acute) - Prophylaxis VTE Prophylaxis Ordered?: Yes Types of VTE Prophylaxis: IPCS Knee High (post op)
[2021-01-27 00:02] VITALS: BP 117/78; PULSE 77; RESP 18; TEMP 36.7; O2SAT 100
[2021-01-27 04:31] VITALS: BP 107/70; PULSE 68; RESP 18; TEMP 36.9; O2SAT 100
[2021-01-27 07:41] LABS: Hematocrit 25.8 % (37.0-47.0); Hemoglobin 8.5 g/dL (12.2-16.2)
--- NOTE | 2021-01-27 13:40 | HMH.ACPN2 ---
Internal Medicine - PN: Subj *Date: 01/27/21 *Time: 13:40 Interval history: PPD #1 s/p repeat CS No unusual complaints Tolerating regular diet Ambulating and voiding without difficulty Asymptomatic with mfnsr-fj-qgcckvo anemia Having insufficient pain relief with oxycodone Exam Vital signs and Labs for Last 24 Hours: Temp Pulse Resp BP Pulse Ox 98.4 F 68 18 107/70 L 100 01/27/21 04:31 01/27/21 04:31 01/27/21 04:31 01/27/21 04:31 01/27/21 04:31 Laboratory Results - last 24 hr 01/27/21 07:18: Hgb 8.5 L, Hct 25.8 L 01/27/21 07:18: Screen Negative, Baby's Rh Status Positive, Rhogam Infusion I & O for Last 24 hours: Intake & Output 01/25/21 01/26/21 01/27/21 01/28/21 11:59 11:59 11:59 11:59 Intake Total 1500 / 1500 0 / 0 Output Total 750 / 750 Balance 1500 / 1500 -750 / -750 Weight 208 lb Narrative: CONSTITUTIONAL: no acute distress HEENT: mucous membranes moist PULMONARY: breathing unlabored without audible wheezes CV: no tachycardia or visible JVD; normal LE peripheral pulses ABD: soft, ND; appropriately tender but no rebound/guarding : fundus firm at/below umbilicus SKIN: incision well approximated with no drainage, erythema or induration EXT: 1+ edema LEs NEURO: alert/oriented, no altered mental status PSYCH: appropriate mood and demeanor Assessment and Plan (1) 39 weeks gestation of Status: Acute Category: Medical Code(s): Z3A.39 - 39 weeks gestation of (2) Previous section Status: Acute Category: Surgical Code(s): Z98.891 - History of uterine scar from previous surgery (3) White classification A2 gestational diabetes mellitus (GDM) Problem details: insulin Status: Acute Category: Medical Code(s): O24.419 - Gestational diabetes mellitus in , unspecified control (4) COVID-19 affecting , antepartum Status: Acute Category: Medical Code(s): O98.519 - Other viral diseases complicating , unspecified trimester; U07.1 - COVID-19 (5) Placenta succenturiata Status: Acute Category: Medical Code(s): O43.199 - Other malformation of placenta, unspecified trimester (6) Rh negative status during Problem details: rhogam 11/10/20 Status: Acute Category: Medical Code(s): O26.899 - Other specified related conditions, unspecified trimester; Z67.91 - Unspecified blood type, Rh negative (7) Rubella non-immune status, antepartum Status: Acute Category: Medical Code(s): O99.891 - Other specified diseases and conditions complicating ; Z28.3 - Underimmunization status (8) Anemia complicating Status: Acute Category: Medical Code(s): O99.019 - Anemia complicating , unspecified trimester (9) Positive urine drug screen Problem details: THCA Status: Acute Category: Medical Code(s): R82.5 - Elevated urine levels of drugs, medicaments and biological substances (10) Anemia associated with acute blood loss Status: Acute Category: Medical Code(s): D62 - Acute posthemorrhagic anemia - Assessment and plan all Dx Assessment and Plan for all problems:: Routine postop care FeSO4 with PNV Pain medication changed from oxycodone to dilaudid Possible discharge home tomorrow
[2021-01-27 21:04] VITALS: BP 123/87; PULSE 77; RESP 18; TEMP 36.9; O2SAT 100
[2021-01-28 04:46] VITALS: BP 105/73; PULSE 57; RESP 16; TEMP 36.7; O2SAT 100
--- NOTE | 2021-01-28 11:27 | HMH.DCSUM ---
General - General Admission date:: 01/26/21 Discharge date: 01/28/21 HPI HPI: 25 yo @ 39 1/7 weeks gestation scheduled for elective repeat c section. complicated by previous c section x2, GDMA2 managed with insulin, Rh negative maternal status, anemia and rubella non-immune maternal status. GDMA2 has been managed by [facility] in [place] and fasting blood sugar 76 on the morning of delivery. testing has been reassuring. UDS + THC at first visit but subsequent UDS negative. She received Rhogam at 28 weeks and has been taking supplemental iron for mild anemia. Preop admission labs + covid 19 but patient is asymptomatic with no respiratory symptoms. She was seen in the [place] ED on 01/23/21 with complaint of chest pain and had positive Covid test. She was treated with monoclonal antibodies and discharged home after negative work up for chest pain. She denies chest pain today. Hospital Course Hospital Course: course uneventful Discharged home on POD #2 in stable condition She is tolerating regular diet, ambulating and voiding without difficulty She is asymptomatic with fmclt-gc-icqbhil anemia Objective Vital signs: Temp Pulse Resp BP Pulse Ox 98.1 F 57 L 16 105/73 L 100 01/28/21 04:46 01/28/21 04:46 01/28/21 04:46 01/28/21 04:46 01/28/21 04:46 Narrative: CONSTITUTIONAL: no acute distress HEENT: mucous membranes moist PULMONARY: breathing unlabored without audible wheezes CV: no tachycardia or visible JVD; normal LE peripheral pulses ABD: soft, ND; appropriately tender but no rebound/guarding : fundus firm below umbilicus SKIN: incision well approximated with no drainage, erythema or induration EXT: 1+ edema LEs NEURO: alert/oriented, no altered mental status PSYCH: appropriate mood and demeanor DS: Diagnosis - Discharge Diagnosis (1) 39 weeks gestation of Status: Acute (2) Previous section Status: Acute (3) White classification A2 gestational diabetes mellitus (GDM) Status: Acute Problem details: insulin (4) COVID-19 affecting , antepartum Status: Acute (5) Placenta succenturiata Status: Acute (6) Rh negative status during Status: Acute Problem details: rhogam 11/10/20 (7) Rubella non-immune status, antepartum Status: Acute (8) Anemia complicating Status: Acute (9) Positive urine drug screen Status: Acute Problem details: THCA (10) Anemia associated with acute blood loss Status: Acute Discharge Plan - Patient Discharge Instructions ACTIVITY: Continue current activity DIET: regular diet Additional Instructions: *Nothing in the Vagina for 6 weeks* *No strenuous activity* *No heavy lifting* *No driving while on Opioid Pain medication* Patient Instructions: Depression, Hemorrhage, DI for , DI for Pre-eclampsia, DI for Postoperative Pain, DI for COVID-19 (Suspected or Confirmed ), [facility] Post Discharge Instructions - Follow up Plan Follow up with: Jie Cummings MD [Staff Physician] - Disposition: Home, Self-Care Condition at discharge:: Stable Home Medications: Home Medications Medication Instructions Recorded Confirmed Type promethazine 12.5 mg tablet 12.5 mg PO TID PRN #30 tab 06/24/20 01/26/21 Rx Prenat 115/Iron Fum/Folic/Dss 1 each PO DAILY 09/01/20 01/26/21 History [ 19 Tablet] omeprazole 20 mg capsule,delayed 20 mg PO DAILY #30 cap 10/14/20 01/26/21 Rx release ondansetron 8 mg disintegrating 8 mg PO Q8H PRN 10/20/20 01/26/21 History tablet insulin glargine 100 unit/mL 20 unit SQ BID 12/09/20 01/26/21 History subcutaneous solution Blood Sugar Diagnostic [OneTouch See Rx Instructions .ROUTE 01/11/21 01/26/21 History Verio test strips] DIRECTED Blood-Glucose Meter See Rx Instructions .ROUTE 01/11/21 01/26/21 History DIRECTED Insulin
--- NOTE | 2021-01-30 11:50 | PC.NURSE ---
1140- justin removed, site cleansed with 1/2 strength peroxide. mastisol applied.. steri-strips applied. tolerated well. incision without s/sx of infection
== END 2021-01-28 13:45 | disposition home or self-care (01) | DRG 786 ==
PROVIDERS: Admitting Provider Obstetrics & Gynecology; PCP Nurse Practitioner Family; Visit Provider Obstetrics & Gynecology
PROC: 10D00Z1 Extraction of Products of Conception, Low, Open Approach (ICD-10-PCS; CPT 59514; principal; 2021-01-26 07:30)
DX: O34.211 Maternal care for low transverse scar from previous cesarean delivery (principal); U07.1 COVID-19; O98.52 Other viral diseases complicating childbirth; Z3A.39 39 weeks gestation of pregnancy; Z37.0 Single live birth; O24.424 Gestational diabetes mellitus in childbirth, insulin controlled; O43.193 Other malformation of placenta, third trimester; O99.02 Anemia complicating childbirth
CPT/HCPCS: 59514; 36415; 59025; 80053; 80305; 81001; 82962; 85014; 85018; 85025; 85461; 86850; 90707; 94761; C9290; C9803; G0283; J2790; U0003; U0005

== ENCOUNTER → 2021-03-09 09:19 | Outpatient (CLI) | payer MEDICAID, SELFPAY ==
--- NOTE | 2021-03-09 09:23 | MR_ITS ---
FINAL REPORT CLINICAL HISTORY: worsening headaches, pulsitile tinnitus. migraine headache x1yr. intermittent dizziness and blurred vision. nose bleeds when migraines are bad. COMPARISON: April 18, 2020 FINDINGS: Multiplanar MR imaging of the brain was performed without contrast. There is no evidence of intracranial hemorrhage or mass. The ventricular size is normal. There is no evidence of shift of the midline structures. No area of restricted diffusion is identified. The posterior fossa and brainstem have an unremarkable appearance. Normal major vessel vascular flow voids are seen. IMPRESSION: Unremarkable brain with no focal abnormality identified. Reviewed, Interpreted and Dictated by Jose Stone III, MD Transcribed by Cristóbal Verdin Authenticated by Jose Stone III, MD on 03/09/2021 12:06:07 PM [facility]
--- NOTE | 2021-03-09 10:15 | XR_ITS ---
FINAL REPORT CLINICAL HISTORY: neck pain, headaches COMPARISON: CT dated January 17, 2020 FINDINGS: CERVICAL SPINE WITH FLEXION AND EXTENSION Five views were obtained. There is no acute fracture. Alignment is normal. The disc spaces are preserved. There is no abnormal movement with flexion or extension. IMPRESSION: No acute process. Reviewed, Interpreted and Dictated by Jose Stone III, MD Transcribed by Cristóbal Verdin Authenticated by Jose Stone III, MD on 03/09/2021 12:35:10 PM [facility]
--- NOTE | 2021-03-09 10:15 | CT_ITS ---
FINAL REPORT TECHNIQUE: Thin section axial CT with IV contrast supplemented with multiplanar reconstruction under CT angiogram protocol. 3-D reconstructions were performed. This study was performed with techniques to keep radiation doses as low as reasonably achievable (ALARA). Individualized dose reduction techniques using automated exposure control or adjustment of mA and/or kV according to the patient''s size were employed. CLINICAL HISTORY: worsening headaches, pulsitile tinnitus FINDINGS: The distal vertebral, basilar and distal internal carotid arteries have an unremarkable appearance. No aneurysm is seen. Major intracranial vessels are patent without significant stenosis. IMPRESSION: No evidence of aneurysm or significant stenosis. Reviewed, Interpreted and Dictated by Jose Stone III, MD Transcribed by Cristóbal Verdin Authenticated by Jose Stone III, MD on 03/09/2021 12:34:47 PM [facility]
--- NOTE | 2021-03-09 10:32 | CT_ITS ---
FINAL REPORT CLINICAL HISTORY: headaches , neck pain COMPARISON: January 17, 2020 FINDINGS: Axial images of the head were obtained without contrast. Coronal reformatted images were also obtained.This study was performed with techniques to keep radiation doses as low as reasonably achievable (ALARA). Individualized dose reduction techniques using automated exposure control or adjustment of mA and/or kV according to the patient''s size were employed. There is no evidence of intracranial hemorrhage or mass. The ventricular size is within normal limits. There is no evidence of shift of the midline structures. No abnormal extra axial fluid collection is identified. No skull abnormality is seen on the bone window images. IMPRESSION: No acute intracranial abnormality. Reviewed, Interpreted and Dictated by Jose Stone III, MD Transcribed by Cristóbal Verdin Authenticated by Jose Stone III, MD on 03/09/2021 12:35:07 PM [facility]
== END ==
PROVIDERS: PCP Nurse Practitioner Family; Visit Provider Nurse Practitioner Family
DX: R51.9 Headache, unspecified (principal); G43.719 Chronic migraine without aura, intractable, without status migrainosus; G89.29 Other chronic pain; H91.92 Unspecified hearing loss, left ear; H93.A2 Pulsatile tinnitus, left ear; M54.2 Cervicalgia; Z87.898 Personal history of other specified conditions
CPT/HCPCS: 70450; 70496; 70551; 72052; Q9967

== ENCOUNTER 2021-03-15 13:22 | Emergency (ER) | payer MEDICAID, SELFPAY ==
[2021-03-15 13:30] VITALS: BP 140/86; PULSE 76; RESP 18; TEMP 36.6; O2SAT 98; BMI 30.3
--- NOTE | 2021-03-15 14:07 | HMH.EDUTC ---
[facility] [place] Disposition Clinical Impression: Impetigo Disposition: Home, Self-Care Condition on Discharge: Good Instructions: Impetigo, DI for Impetigo, Cephalexin, Mupirocin Additional Instructions: Clean hands well before and after applying medication Take medication as prescribed Follow up with your Family Doctor if no improvement or any worsening of symptoms Return if needed straight to ER if any life threatening symptoms Prescriptions: Mupirocin [Bactroban 2% Ointment 22gm tube] 1 applicatio TP TID 10 Days #22 gm Transmission Status: Pending to [facility] # cephALEXin [Cephalexin 500mg Tab] 500 mg PO Q6H 10 Days #40 tab Transmission Status: Pending to [facility] # Referrals: Chilango Landeros APRN [Primary Care Provider] - As needed Time of Disposition: 14:16 Medical Decision Making - Zay Inquiry Pt receiving controlled substance: No Zay was queried for this patient: No Vital Signs: 03/15/21 13:30 Temperature 97.8 F Temperature Source Oral Pulse Rate [Right] 76 Respiratory Rate 18 Blood Pressure [Right Arm] 140/86 Blood Pressure Mean [Right Arm] 104 Blood Pressure Source [Right Arm] Automatic Cuff Blood Pressure Position [Right Arm] Sitting 02 Sat by Pulse Oximetry 98 Oxygen Delivery Method Room Air [facility] [place] HPI - General Stated complaint: right side knot on neck, painful Time Seen by Provider: 03/15/21 14:07 Mode of Arrival: Ambulatory Source of Information: Patient Limitations: No Limitations Description of Symptoms (Recalled from Triage Doc. by RN): PATIENT C/O KNOT ON SIDE OF NECK AND PLACE ON RIGHT CHEEK X 1 WEEK HEENT Symptoms (Recalled from RN notes): Yes Resp Symptoms (Recalled from RN notes): No Skin Symptoms (Recalled from RN notes): No MS Symptoms (Recalled from RN notes): No Functional Status (Recalled from RN notes): WNL - History of Present Illness Provider Complaint: Patient states that she had a pimple like area on the right side of her face beside her nose and she popped it now she has sore like lesions on the side of her face with yellowish colored scabs and she has a knot on the right side of her neck States that she was worried when those sores was spreading so she came in - Related Data Previous Rx's Medication Instructions Recorded Mupirocin [Bactroban 2% Ointment 1 applicatio TP TID 10 Days #22 gm 03/15/21 22gm tube] cephALEXin [Cephalexin 500mg Tab] 500 mg PO Q6H 10 Days #40 tab 03/15/21 Allergies Allergy/AdvReac Type Severity Reaction Status Date / Time No Known Allergies Allergy Verified 03/02/21 13:25 - Worker's Comp Is this a Worker's Comp case?: No [facility] History - Hepatitis A Screen Drug use history?: No High risk sexual behaviors?: No History of sexually transmitted infection?: No Currently employed?: No Childcare worker?: No Do you have indoor plumbing?: Yes Do you have electricity?: Yes Attestation statement:: This patient has been screened for Hepatitis A risk factors. I have reviewed the patient's past medical history: Yes Medical History: Reports:: Anxiety, Asthma, Diabetes Mellitus Type 2, Kidney Stones, Migraine Denies:: Diabetes Mellitus Type 1, Seizures Other Medical History: Reports: Anemia, Other Comment: KIDNEY STONES Laterality Cases: Right: Arthroscopy Knee Other Surgeries: Yes: No Previous Surgery, Colonoscopy, , EGD, Other Amputation: No Fractures: No Comment: [id number] RT. KNEE SURGERY X2. 2013- PRIMARY . 2014-WISDOM TEETH. 2018- REPEAT - Social History Smoking Status: Never smoker Alcohol Intake: never Alcohol Intake Frequency:: holidays/special occasions only Substance Use Type: former substance user, marijuana, crack/cocaine Occupational Status: other Housing: house Household Members: family - Psychiatric History Pschychiatric History:: Reports:: Anxiety Family Hx:: Stroke, Coronary Artery Disease, Hypertension, Cancer Comment: 2013-PRIMA
[2021-03-15 14:16] VITALS: BP 140/86; PULSE 76; RESP 18; TEMP 36.6; O2SAT 98
== END 2021-03-15 14:23 | disposition home or self-care (01) ==
PROVIDERS: Emergency Provider Nurse Practitioner; PCP Nurse Practitioner Family
DX: L01.00 Impetigo, unspecified (principal); E11.9 Type 2 diabetes mellitus without complications; F41.9 Anxiety disorder, unspecified
CPT/HCPCS: 99202; G0463

== ENCOUNTER 2021-04-01 11:00 | Outpatient (RCR) | payer MEDICAID, SELFPAY ==
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
== END 2021-04-01 11:05 | disposition home or self-care (01) ==
LOC: PT 11:00
PROVIDERS: Visit Provider Nurse Practitioner Family
DX: M54.2 Cervicalgia (principal); R51.9 Headache, unspecified; G89.29 Other chronic pain
CPT/HCPCS: 20561; 97010; 97014; 97110; 97163; G0283

== ENCOUNTER 2021-04-14 13:56 | Emergency (ER) | payer MEDICAID, SELFPAY ==
[2021-04-14 13:57] VITALS: BP 141/80; PULSE 62; RESP 16; TEMP 36.6; O2SAT 99; BMI 28.5
--- NOTE | 2021-04-14 15:02 | HMH.EDUTC ---
[facility] [place] Disposition Clinical Impression: Pharyngitis Qualifiers: Pharyngitis/tonsillitis etiology: unspecified etiology Qualified Code(s): J02.9 - Acute pharyngitis, unspecified Disposition: Home, Self-Care Condition on Discharge: Good Instructions: Strep Throat, DI for Strep Throat, Preventing the Spread of Coronavirus Discharge Instructions Additional Instructions: Drink plenty of fluids. Take tylenol or ibuprofen for pain or fever. Take the medications as directed. Follow up with your regular doctor. GO TO THE ER FOR ANY WORSENING SYMPTOMS Quarantine until you know the results of your covid-19 test. Notify your school or workplace of your results and follow their instructions regarding return to work/school. Prescriptions: Brompheniramine/Pseudoephed/Dm [Bromfed Dm Cough Syrup] 5 ml PO Q6HP PRN #240 ml PRN Reason: Cough Transmission Status: Received by [facility] #[id number] Ondansetron [Zofran 4mg ODT] 4 mg PO Q8HP PRN #20 tab PRN Reason: Nausea Transmission Status: Received by [facility] #[id number] Amoxicillin [Amoxicillin 500mg Tab] 500 mg PO TID 10 Days #30 tab Transmission Status: Received by [facility] #[id number] Referrals: Chilango Landeros APRN [Primary Care Provider] - Forms: Work/School Release Time of Disposition: 15:49 Medical Decision Making - Medical Records Medical records reviewed: No: I reviewed the patient's medical records. - Zay Inquiry Pt receiving controlled substance: No Vital Signs: 04/14/21 13:57 04/14/21 15:58 Temperature 98 F 98.3 F Temperature Source Oral Oral Pulse Rate 60 Pulse Rate [Right] 62 Respiratory Rate 16 16 Blood Pressure 132/70 Blood Pressure [Right Arm] 141/80 H Blood Pressure Mean [Right Arm] 100 Blood Pressure Source Automatic Cuff Blood Pressure Source [Right Arm] Automatic Cuff Blood Pressure Position Sitting Blood Pressure Position [Right Arm] Sitting 02 Sat by Pulse Oximetry 99 Oxygen Delivery Method Room Air Room Air - Lab Data Lab results reviewed: Yes: I reviewed the patient's lab results. [facility] [place] HPI - General Stated complaint: sore throat Time Seen by Provider: 04/14/21 15:03 - History of Present Illness Provider Complaint: She c/o sore throat for the past 2 days. She has had n/v also. She denies any known covid exposure. She does get strep throat kind of frequently. - Related Data Previous Rx's Medication Instructions Recorded Mupirocin [Bactroban 2% Ointment 1 applicatio TP TID 10 Days #22 gm 03/15/21 22gm tube] cephALEXin [Cephalexin 500mg Tab] 500 mg PO Q6H 10 Days #40 tab 03/15/21 Amoxicillin [Amoxicillin 500mg Tab] 500 mg PO TID 10 Days #30 tab 04/14/21 Brompheniramine/Pseudoephed/Dm 5 ml PO Q6HP PRN #240 ml 04/14/21 [Bromfed Dm Cough Syrup] Ondansetron [Zofran 4mg ODT] 4 mg PO Q8HP PRN #20 tab 04/14/21 Allergies Allergy/AdvReac Type Severity Reaction Status Date / Time No Known Allergies Allergy Verified 03/02/21 13:25 [facility] History - Hepatitis A Screen Attestation statement:: This patient has been screened for Hepatitis A risk factors. I have reviewed the patient's past medical history: Yes Medical History: Reports:: Anxiety, Asthma, Diabetes Mellitus Type 2, Kidney Stones, Migraine Denies:: Diabetes Mellitus Type 1, Seizures Other Medical History: Reports: Anemia, Other Comment: KIDNEY STONES Laterality Cases: Right: Arthroscopy Knee Other Surgeries: Yes: No Previous Surgery, Colonoscopy, , EGD, Other Amputation: No Fractures: No Comment: [id number] RT. KNEE SURGERY X2. 2013- PRIMARY . 2015-WISDOM TEETH. 2018- REPEAT - Social History Smoking Status: Never smoker Alcohol Intake: never Alcohol Intake Frequency:: holidays/special occasions only Substance Use Type: former substance user, marijuana, crack/cocaine Occupational Status: other Housing: house Household Members: family - Psychiatric Histor
[2021-04-14 15:58] VITALS: BP 132/70; PULSE 60; RESP 16; TEMP 36.8; O2SAT 98
== END 2021-04-14 15:59 | disposition home or self-care (01) ==
PROVIDERS: Emergency Provider Nurse Practitioner Family; PCP Nurse Practitioner Family
DX: J02.9 Acute pharyngitis, unspecified (principal); E11.9 Type 2 diabetes mellitus without complications; F41.9 Anxiety disorder, unspecified
CPT/HCPCS: 99212; C9803; G0463; U0003; U0005

== ENCOUNTER 2021-05-16 14:55 | Emergency (ER) | payer MEDICAID, SELFPAY ==
[2021-05-16 15:58] VITALS: BP 126/81; PULSE 76; RESP 18; TEMP 37.1; O2SAT 98; BMI 26.6
[2021-05-16 16:11] LABS: Strep Scrn Group A (Rapid) Negative (Negative)
--- NOTE | 2021-05-16 16:51 | HMH.EDUTC ---
[facility] [place] Disposition Clinical Impression: Viral syndrome Pharyngitis Qualifiers: Pharyngitis/tonsillitis etiology: unspecified etiology Qualified Code(s): J02.9 - Acute pharyngitis, unspecified Disposition: Home, Self-Care Condition on Discharge: Good Instructions: Sore Throat, DI for Pharyngitis/Tonsillopharyngitis -- Adult Additional Instructions: Drink plenty of fluids. Take tylenol or ibuprofen for pain or fever. Take the medications as directed. Follow up with your regular doctor. GO TO THE ER FOR ANY WORSENING SYMPTOMS Prescriptions: Brompheniramine/Pseudoephed/Dm [Bromfed Dm Cough Syrup] 5 ml PO Q6HP PRN #240 ml PRN Reason: Cough Transmission Status: Received by [facility] #[id number] methylPREDNISolone [Medrol] 4 mg PO DIRECTED 6 Days #21 packet Transmission Status: Received by [facility] #[id number] Referrals: Chilango Landeros APRN [Primary Care Provider] - Forms: Work/School Release Time of Disposition: 17:00 Medical Decision Making - Medical Records Medical records reviewed: No: I reviewed the patient's medical records. - Zay Inquiry Pt receiving controlled substance: No Vital Signs: 05/16/21 15:58 05/16/21 17:14 Temperature 98.7 F 98.7 F Temperature Source Oral Pulse Rate 76 Pulse Rate [Left] 76 Respiratory Rate 18 18 Blood Pressure 126/81 Blood Pressure [Right Arm] 126/81 Blood Pressure Mean [Right Arm] 96 02 Sat by Pulse Oximetry 98 - Lab Data Lab results reviewed: Yes: I reviewed the patient's lab results. Lab Results 05/16/21 15:55: Group A Strep Rapid Negative [facility] [place] HPI - General Stated complaint: sore throat Time Seen by Provider: 05/16/21 16:00 Mode of Arrival: Ambulatory Source of Information: Patient Limitations: No Limitations Description of Symptoms (Recalled from Triage Doc. by RN): pt c/o a sore throat, cough, difficulty breathing and painful swallowing. x3 days. HEENT Symptoms (Recalled from RN notes): Yes Resp Symptoms (Recalled from RN notes): Yes Skin Symptoms (Recalled from RN notes): No MS Symptoms (Recalled from RN notes): No Functional Status (Recalled from RN notes): wnl - History of Present Illness Provider Complaint: She c/o sore throat for the past 3 days. - Related Data Previous Rx's Medication Instructions Recorded Mupirocin [Bactroban 2% Ointment 1 applicatio TP TID 10 Days #22 gm 03/15/21 22gm tube] Ondansetron [Zofran 4mg ODT] 4 mg PO Q8HP PRN #20 tab 04/14/21 Brompheniramine/Pseudoephed/Dm 5 ml PO Q6HP PRN #240 ml 05/16/21 [Bromfed Dm Cough Syrup] methylPREDNISolone [Medrol] 4 mg PO DIRECTED 6 Days #21 05/16/21 packet amoxicillin 500 mg-potassium 1 tab PO BID #20 tab 05/18/21 clavulanate 125 mg tablet Allergies Allergy/AdvReac Type Severity Reaction Status Date / Time No Known Allergies Allergy Verified 05/18/21 09:48 - Worker's Comp Is this a Worker's Comp case?: No [facility] History - Hepatitis A Screen Drug use history?: No High risk sexual behaviors?: No History of sexually transmitted infection?: No Currently employed?: No Childcare worker?: No Do you have indoor plumbing?: Yes Do you have electricity?: Yes Attestation statement:: This patient has been screened for Hepatitis A risk factors. I have reviewed the patient's past medical history: Yes Medical History: Reports:: Anxiety, Asthma, Diabetes Mellitus Type 2, Kidney Stones, Migraine Denies:: Diabetes Mellitus Type 1, Seizures Other Medical History: Reports: Anemia, Other Comment: KIDNEY STONES Laterality Cases: Right: Arthroscopy Knee Other Surgeries: Yes: No Previous Surgery, Colonoscopy, , EGD, Other Amputation: No Fractures: No Comment: [id number] RT. KNEE SURGERY X2. 2014- PRIMARY . 2015-WISDOM TEETH. 2018- REPEAT - Social History Smoking Status: Never smoker Alcohol Intake: never Alcohol Intake Frequency:: holidays/special occasions only Substance Use T
[2021-05-16 17:14] VITALS: BP 126/81; PULSE 76; RESP 18; TEMP 37.1
== END 2021-05-16 17:14 | disposition home or self-care (01) ==
PROVIDERS: Emergency Provider Nurse Practitioner Family; PCP Nurse Practitioner Family
DX: J02.9 Acute pharyngitis, unspecified (principal); E11.9 Type 2 diabetes mellitus without complications; J45.909 Unspecified asthma, uncomplicated; G43.909 Migraine, unspecified, not intractable, without status migrainosus; F41.9 Anxiety disorder, unspecified; Z87.898 Personal history of other specified conditions; Z87.442 Personal history of urinary calculi; Z82.49 Family history of ischemic heart disease and other diseases of the circulatory system; Z80.9 Family history of malignant neoplasm, unspecified
CPT/HCPCS: 87430; 99213; G0463

== ENCOUNTER 2021-05-27 18:44 | Emergency (ER) | payer MEDICAID, SELFPAY ==
[2021-05-27 18:45] VITALS: BP 110/73; PULSE 114; RESP 16; TEMP 37.1; O2SAT 100; BMI 27.4
--- NOTE | 2021-05-27 21:12 | HMH.EDGENADL ---
ED Disposition Clinical Impression: Nephrolithiasis Disposition: Home, Self-Care Condition on Discharge: Good Instructions: DI for Acute Abdominal Pain Additional Instructions: Your symptoms are most consistent with passing a renal stone. Please continue to monitor your condition closely at home and continue to keep an eye on the symptoms we discussed such as, but not limited to, fever, worsening or intolerable pain, coughing up blood, worsening shortness of breath, leg swelling, pain with urination or lack of symptom improvement in 2 to 3 days. Please use a strainer when you urinate to capture potential stone. If your condition worsens or any other concerns arise, please do not hesitate to return to the emergency department for reassessment. Referrals: Chilango Landeros APRN [Primary Care Provider] - - Critical Care Critical Care Time: No Attestation: On 05/27/21, the high probability of a clinically significant, sudden or life threatening deterioration of the following system(s) required my full and direct attention, intervention and personal management. The time I documented below is in addition to time spent performing reported procedures but includes the following listed in this critical care notation. Medical Decision Making - Medical Records Medical records reviewed: Yes: I reviewed the patient's medical records. - Zay Inquiry Pt receiving controlled substance: No Vital Signs: 05/27/21 18:45 05/27/21 22:33 Temperature 98.7 F Temperature Source Oral Pulse Rate 95 H Pulse Rate [Left] 114 H Respiratory Rate 16 Blood Pressure 102/67 L Blood Pressure [Right Arm] 110/73 Blood Pressure Mean [Right Arm] 85 02 Sat by Pulse Oximetry 100 99 Oxygen Delivery Method Room Air Room Air - Lab Data Lab results reviewed: Yes: I reviewed the patient's lab results. Lab Results 05/27/21 20:38: Urine Color Yellow, Urine Appearance Sl cloudy, Urine pH 6.0, Ur Specific [place] 1.020, Urine Protein Negative, Urine Glucose (UA) Negative, Urine Ketones Negative, Urine Blood Negative, Urine Nitrate Negative, Urine Bilirubin Negative, Urine Urobilinogen 0.2, Ur Leukocyte Esterase Negative, Urine RBC None, Urine WBC Occasional, Ur Squamous Epith Cells Occasional, Urine Bacteria Trace 05/27/21 20:52: Group A Strep Rapid Negative 05/27/21 20:52: SARS-CoV-2 (PCR) Not detected, Influenza A Untype (PCR) Not detected, Influenza Type B (PCR) Not detected 05/27/21 21:25: WBC 9.1, RBC 5.50 H, Hgb 12.1 L, Hct 37.7, MCV 68.4 L, MCH 21.9 L, MCHC 32.0, RDW 16.4, Plt Count 251, MPV 9.7, Neut % (Auto) 84.8 H, Lymph % (Auto) 6.6 L, [place] % (Auto) 5.5, Eos % (Auto) 0.3, Baso % (Auto) 2.9 H, Neut # (Auto) 7.7, Lymph # (Auto) 0.6 L, [place] # (Auto) 0.5, Eos # (Auto) 0.0, Baso # (Auto) 0.3 H 05/27/21 21:25: D-Dimer 0.73 H 05/27/21 21:25: Sodium 136, Potassium 4.1, Chloride 101, Carbon Dioxide 24, Anion Gap 15.1 H, BUN 11, Creatinine 0.70, Estimated Creat Clear 164, Estimated GFR 102, Est GFR ( Amer) 123, Glucose 102 H, Calcium 9.4, Total Bilirubin 0.5, AST 27, ALT 34, Alkaline Phosphatase 77, Troponin I < 0.01, Total Protein 8.3 H D, Albumin 4.9, Globulin 3.4 H, Albumin/Globulin Ratio 1.4 05/27/21 21:25: Serum HCG, Qual Negative Result diagrams: 05/27/21 21:25 05/27/21 21:25 Orders (Tests/Meds): ED MEDICATIONS Generic Name Dose Route Start Last Admin Trade Name Freq PRN Reason Stop Dose Admin Sodium Chloride 1,000 mls @ 1,000 mls/hr 05/27/21 21:15 05/27/21 21:38 Sod Chlor 0.45% 1000ml Bag IV 06/26/21 21:14 Not Given .Q1H JEANNIE Discontinued Medications Generic Name Dose Route Start Last Admin Trade Name Freq PRN Reason Stop Dose Admin Acetaminophen 1,000 mg 05/27/21 21:08 05/27/21 21:35 Acetaminophen 500mg Tab PO 05/27/21 21:09 1,000 mg ONCE ONE Administration Ketorolac Tromethamine 15 mg 05/27/21 21:08 05/27/21 21:36 Ketorolac 30mg/Ml Vial IV 05/27/21 21:09 15 mg ONCE ONE Administration P
[2021-05-27 21:34] LABS: Coronavirus 19, PCR Not Detected (NotDetected); Influenza A, PCR Not Detected (NotDetected); Influenza B, PCR Not Detected (NotDetected)
[2021-05-27 21:34] LABS: Microscopic, Urine URINE MICROSCOPIC (MICROSCOPIC)
[2021-05-27 21:36] LABS: Basophils # 0.3 K/mm3 (0-0.2); Basophils % 2.9 % (0.1-2.0); Eosinophils % 0.3 % (0.1-12.0); Hematocrit 37.7 % (37.0-47.0); Hemoglobin 12.1 g/dL (12.2-16.2); Lymphocytes # 0.6 K/mm3 (0.7-4.5); Lymphocytes % 6.6 % (10-50); Mean Corpuscular Hemoglobin 21.9 pg (27.0-31.2); Mean Corpuscular Volume 68.4 fl (81-99); Mean Platelet Volume 9.7 fl (7.4-10.4); Monocytes # 0.5 K/mm3 (0.1-1.0); Monocytes % 5.5 % (1.7-9.3); Neutrophils # 7.7 K/mm3 (1.8-7.8); Neutrophils % 84.8 % (37.0-80.0); Platelet Count 251 K/mm3 (142-424); Red Cell Distribution Width 16.4 % (11.5-17.5); White Blood Count 9.1 K/mm3 (4.8-10.8)
[2021-05-27 21:42] LABS: Strep Scrn Group A (Rapid) Negative (Negative)
[2021-05-27 21:58] LABS: HCG Qualitative, Serum Negative (Negative)
[2021-05-27 21:59] LABS: Alanine Aminotransferase 34 U/L (12-78); Albumin Level 4.9 g/dl (3.5-5.0); Albumin/Globulin Ratio 1.4 (1.1-1.8); Alkaline Phosphatase 77 U/L (38-126); Anion Gap 15.1 mEq/L (5-15); Aspartate Amino Transferase 27 U/L (14-36); Bilirubin,Total 0.5 mg/dl (0.2-1.3); Blood Urea Nitrogen 11 mg/dl (7-17); Calcium 9.4 mg/dl (8.4-10.2); Carbon Dioxide 24 mmol/L (22.0-30.0); Chloride 101 mmol/L (98-107); Creatinine Clearance Estimated 164 mL/min (50-200); Estimated Glomerular Filt Rate 102 ml/min (>60); GFR (African American) 123 ML/MIN (>60); Globulin 3.4 g/dL (1.3-3.2); Glucose 102 mg/dl (74-100); Potassium 4.1 mmoL/L (3.5-5.1); Sodium 136 mmol/L (136-145); Total Protein,Serum 8.3 g/dl (6.3-8.2)
[2021-05-27 22:04] LABS: D-Dimer 0.73 ug/mL (0.0-0.5)
[2021-05-27 22:25] LABS: Troponin I < 0.01 ng/ml (0.00-0.034)
[2021-05-27 22:33] VITALS: BP 102/67; PULSE 95; O2SAT 99
--- NOTE | 2021-05-27 22:34 | PC.NURSE ---
Updated pt on POC. No new needs.
[2021-05-27 22:37] LABS: Appearance,Urine SL CLOUDY (Clear); Bilirubin,Urine Negative (Negative); Blood, Urine Negative (Negative); Color,Urine YELLOW (Yellow); Glucose,Urine (UA) Negative (Negative); Ketones,Urine Negative (Negative); Leukocyte Esterase,Urine Negative (Negative); Nitrate,Urine Negative (Negative); Protein,Urine Negative (Negative); Urobilinogen,Urine 0.2 EU/dl (0.2)
--- NOTE | 2021-05-27 22:44 | XR_ITS ---
PROCEDURE INFORMATION: Exam: XR Chest Exam date and time: 05/27/2021 10:44 PM Age: 25 years old Clinical indication: Sternal or substernal pain; Additional info: Chest pain TECHNIQUE: Imaging protocol: XR of the chest. Views: 2 views. COMPARISON: CR XR CHEST PORTABLE 10/17/2020 3:17 PM FINDINGS: Lungs: Unremarkable. No consolidation. Pleural spaces: Unremarkable. No pleural effusion. No pneumothorax. Heart/Mediastinum: Unremarkable. No cardiomegaly. Bones/joints: Unremarkable. IMPRESSION: No acute findings.
[2021-05-27 22:49] LABS: Bacteria,Urine Trace /lpf; Squamous Epithelial Cell,Urine Occasional #/hpf (0-5); WBC,Urine Occasional #/hpf (0-3)
--- NOTE | 2021-05-27 23:02 | ECG_ITS ---
APPROVED REPORT Exam: Resting ECG HR:84 bpm ECG Measurements Heart Rate 84 AXES PA 169 P 59 QRSd 92 QRS 77 QT 386 T 56 QTc 427 Conclusion SINUS RHYTHM NONSPECIFIC T-WAVE ABNORMALITY BORDERLINE ECG UNCONFIRMED REPORT Electronically signed by : Maulik Vu MD 05/28/2021 11:45:18
[2021-05-27 23:57] VITALS: BP 109/73; PULSE 98; RESP 16; TEMP 37.1; O2SAT 98
== END 2021-05-28 00:03 | disposition home or self-care (01) ==
PROVIDERS: Emergency Medicine; Emergency Provider Emergency Medicine; PCP Nurse Practitioner Family
DX: N20.0 Calculus of kidney (principal); R10.31 Right lower quadrant pain; E11.9 Type 2 diabetes mellitus without complications; G43.909 Migraine, unspecified, not intractable, without status migrainosus; F41.9 Anxiety disorder, unspecified
CPT/HCPCS: 71046; 80053; 81001; 84484; 84703; 85025; 85378; 87086; 87430; 93005; 96365; 96375; 99284; C9803; U0003; U0005

== ENCOUNTER → 2021-06-29 11:08 | Outpatient (CLI) | payer MEDICAID, SELFPAY | PROVIDERS: Visit Provider Nurse Practitioner Family | DX: Z01.812 Encounter for preprocedural laboratory examination (principal); Z20.822 Contact with and (suspected) exposure to COVID-19 | CPT/HCPCS: C9803; U0003; U0005 ==

== ENCOUNTER → 2021-07-01 21:06 | Outpatient (CLI) | payer MEDICAID, SELFPAY | PROVIDERS: PCP Nurse Practitioner Family; Visit Provider Nurse Practitioner Family | DX: R06.81 Apnea, not elsewhere classified (principal); R06.83 Snoring | CPT/HCPCS: 95810 ==

== ENCOUNTER → 2021-07-21 09:01 | Outpatient (CLI) | payer MEDICAID, SELFPAY ==
--- NOTE | 2021-07-21 09:04 | MR_ITS ---
FINAL REPORT CLINICAL HISTORY: Lateral sided knee pain. no injury or trauma. knee instability. FINDINGS: Multiplanar MR imaging of the right knee was performed without contrast. There is mild irregularity of the body of the medial meniscus on series 8, image 16. A small tear cannot be excluded. The lateral meniscus is intact. The anterior and posterior cruciate ligaments are intact. The medial collateral ligament and lateral ligamentous complex are intact. The patellar and quadriceps tendons are intact. There is no evidence of fracture. No focal abnormality is identified of the articular cartilage. A small joint effusion is seen. The musculature is intact. No soft tissue mass or cyst is identified. IMPRESSION: Mild irregularity of the body of the medial meniscus. Small tear not excluded. Small joint effusion. Reviewed, Interpreted and Dictated by Jose Stone III, MD Transcribed by Cristóbal Verdin Authenticated and [facility]
== END ==
PROVIDERS: PCP Nurse Practitioner Family; Visit Provider Nurse Practitioner Family
DX: M25.562 Pain in left knee (principal)
CPT/HCPCS: 73721

== ENCOUNTER → 2021-07-28 12:46 | Outpatient (CLI) | payer MEDICAID, SELFPAY ==
--- NOTE | 2021-07-28 12:54 | XR_ITS ---
FINAL REPORT CLINICAL HISTORY: knee pain FINDINGS: LEFT KNEE: 4 views of the left knee obtained. There is no acute fracture or dislocation. The joint spaces are intact.. There is no soft tissue abnormality. IMPRESSION: No acute fracture Reviewed, Interpreted and Dictated by Jose Stone III, MD Transcribed by Mariela Smith Authenticated and [facility]
--- NOTE | 2021-07-28 14:56 | XR_ITS ---
FINAL REPORT CLINICAL HISTORY: knee pain, weightbearing views FINDINGS: RIGHT KNEE: Four views of the right knee obtained. There is no acute fracture or dislocation. The joint spaces are intact.. There is no soft tissue abnormality. IMPRESSION: No acute fracture Reviewed, Interpreted and Dictated by Jose Stone III, MD Transcribed by La Hernandez Authenticated and [facility]
== END ==
PROVIDERS: PCP Nurse Practitioner Family; Visit Provider Physician Assistant Surgical
DX: M25.562 Pain in left knee (principal); M25.561 Pain in right knee
CPT/HCPCS: 73564

== ENCOUNTER 2021-07-28 15:00 | Outpatient (RCR) | payer MEDICAID, SELFPAY | END 2021-07-28 16:00 | disposition home or self-care (01) | LOC: PT 15:00 | PROVIDERS: Visit Provider Orthopaedic Surgery | DX: M25.562 Pain in left knee (principal); M25.561 Pain in right knee | CPT/HCPCS: 97760 ==

== ENCOUNTER 2021-07-29 20:02 | Emergency (ER) | payer MEDICAID, SELFPAY ==
[2021-07-29 20:03] VITALS: BP 123/96; PULSE 72; RESP 16; TEMP 37; O2SAT 100; BMI 27.6
--- NOTE | 2021-07-29 20:54 | CT_ITS ---
PROCEDURE INFORMATION: Exam: CT Right Lower Extremity Without Contrast, Knee Exam date and time: 07/29/2021 9:50 PM Age: 25 years old Clinical indication: Pain; Knee; Right; Additional info: Fall TECHNIQUE: Imaging protocol: CT of the Right lower extremity without contrast was performed. Exam focused on the knee. 3D rendering (Not supervised by radiologist): MIP and/or 3D reconstructed images were created by the technologist. Radiation optimization: All CT scans at this facility use at least one of these dose optimization techniques: automated exposure control; mA and/or kV adjustment per patient size (includes targeted exams where dose is matched to clinical indication); or iterative reconstruction. COMPARISON: CR XR KNEE RT 4V 07/28/2021 3:04 PM FINDINGS: Bones/joints: No fracture or subluxation. Soft tissues: Normal. IMPRESSION: No fracture or subluxation.
--- NOTE | 2021-07-29 21:09 | PC.NURSE ---
pt going to restroom
--- NOTE | 2021-07-29 21:15 | HMH.EDGENADL ---
ED Disposition Clinical Impression: Knee internal derangement Qualifiers: Laterality: right Qualified Code(s): M23.91 - Unspecified internal derangement of right knee Disposition: Home, Self-Care Condition on Discharge: Good Instructions: DI for Knee Pain Additional Instructions: non wt bearing see pcp evette for follow up Referrals: Chilango Landeros APRN [Primary Care Provider] - - Critical Care Critical Care Time: No Attestation: On 07/29/21, the high probability of a clinically significant, sudden or life threatening deterioration of the following system(s) required my full and direct attention, intervention and personal management. The time I documented below is in addition to time spent performing reported procedures but includes the following listed in this critical care notation. Medical Decision Making - Medical Records Medical records reviewed: Yes: I reviewed the patient's medical records. - Zay Inquiry Pt receiving controlled substance: No Vital Signs: 07/29/21 20:03 Temperature 98.6 F Temperature Source Oral Pulse Rate [Right] 72 Respiratory Rate 16 Blood Pressure [Right Arm] 123/96 H Blood Pressure Mean [Right Arm] 105 Blood Pressure Source [Right Arm] Automatic Cuff Blood Pressure Position [Right Arm] Sitting 02 Sat by Pulse Oximetry 100 Oxygen Delivery Method Room Air - Lab Data Lab results reviewed: Yes: I reviewed the patient's lab results. Lab Results 07/29/21 21:13: Urine HCG, Qual Negative Orders (Tests/Meds): ED MEDICATIONS Discontinued Medications Generic Name Dose Route Start Last Admin Trade Name Freq PRN Reason Stop Dose Admin Ketorolac Tromethamine 60 mg 07/29/21 22:42 07/29/21 22:44 Ketorolac 60mg/2ml Vial IM 07/29/21 22:43 60 mg ONCE ONE Administration - CT Data CT Scan: Other (knee ) Time Received: 22:[address] Reviewed: Yes: I have viewed the radiologist's interpretation Preliminary Findings: No Fracture Seen Medical Decision Narrative: has sig rt knee injury with swelling and dec rom affecting adl/work - will need pcp and ortho eval General Adult HPI - General Chief complaint: PAIN Stated complaint: AO 07/27 Injured twisted R Knee Time Seen by Provider: 07/29/21 20:20 Mode of Arrival: Ambulatory Source of Information: Patient, Medical Record Limitations: No Limitations Description of Symptoms (Recalled from ER Triage Doc. by RN): pt advises two days ago she was at work when she tripped over a piece of metal and caught herself which caused her to twist her right knee. Pt had plain shena at [place] which was negative. [place] she c/o stabbing pains in the knee and foot. Advises she has also been having some numbness/tingling. Pt has +PMS - History of Present Illness HPI narrative: at work with acute injury rt knee with pain and swelling and dec wt bearing - twist type injury rt knee -with pain and swelling and was seen at [facility] and reported neg xray and knee immobolizer Onset (ago): day(s) Location: lower extremity Severity: severe Quality: stabbing Consistency: constant Exacerbating factors: movement Associated symptoms: denies other symptoms Treatments prior to arrival: NSAID - Related Data Home Medications Medication Instructions Recorded Confirmed omeprazole 20 mg capsule,delayed 20 mg PO DAILY 06/11/21 07/28/21 release Previous Rx's Medication Instructions Recorded Ondansetron [Zofran 4mg ODT] 4 mg PO Q8HP PRN #20 tab 04/14/21 fremanezumab-vfrm 225 mg/1.5 mL 225 mg SQ QMONTH #1.5 ml 05/28/21 subcutaneous auto-injector ubrogepant 100 mg tablet 100 mg PO ONCE PRN #10 tab 06/04/21 cariprazine 1.5 mg capsule 1.5 mg PO DAILY #30 cap 07/08/21 Allergies Allergy/AdvReac Type Severity Reaction Status Date / Time No Known Allergies Allergy Verified 07/28/21 13:22 [facility] History - Hepatitis A Screen Attestation statement:: This patient has been screened for Hepatitis A risk factors.
[2021-07-29 21:47] LABS: Urine Pregnancy, HCG Qual. Negative (Negative)
--- NOTE | 2021-07-29 22:14 | PC.NURSE ---
Rounded on patient, updated her on POC. Water provided, no other needs at this time
[2021-07-29 22:58] VITALS: BP 118/70; PULSE 60; RESP 16; TEMP 36.8; O2SAT 98
== END 2021-07-29 22:58 | disposition home or self-care (01) ==
PROVIDERS: Emergency Provider Emergency Medicine; PCP Nurse Practitioner Family
DX: M23.91 Unspecified internal derangement of right knee (principal)
CPT/HCPCS: 73700; 81025; 96374; 99284

== ENCOUNTER → 2021-08-07 09:42 | Outpatient (CLI) | payer MEDICAID, SELFPAY ==
--- NOTE | 2021-08-07 09:47 | MR_ITS ---
FINAL REPORT CLINICAL HISTORY: right knee injury. TWISTED KNEE 2 WEEKS AGO AND MEDIAL SIDED KNEE PAIN. PRIOR SURGERY ON KNEE IN 2011-. KNEE INSTABILITY. UNABLE TO BEND KNEE. FINDINGS: Multiplanar MR imaging of the right knee was performed without contrast. The medial meniscus is intact. The lateral meniscus is small, presumably secondary to prior partial meniscectomy. There is a questionable focal tear of the body of the lateral meniscus. There is a 10 mm collection of fluid lateral to the lateral compartment, may represent a parameniscal cyst or ganglion. This is well seen on series 8, images 15-16. The anterior and posterior cruciate ligaments are intact. The medial collateral ligament and lateral ligamentous complex are intact. The patellar and quadriceps tendons are intact. There is no evidence of fracture. There is mild chondromalacia of the lateral femoral condyle. Small joint effusion is seen. The musculature is intact. No soft tissue mass or cyst is identified. IMPRESSION: Question focal tear of the body of the lateral meniscus. Para meniscal cyst versus ganglion cyst lateral to the lateral compartment. Mild chondromalacia of the lateral femoral condyle. Reviewed, Interpreted and Dictated by Jose Stone III, MD Transcribed by Bianca Langford Authenticated and [facility]
== END ==
PROVIDERS: PCP Physician Assistant; Visit Provider Physician Assistant
DX: M25.561 Pain in right knee (principal); M25.361 Other instability, right knee
CPT/HCPCS: 73721

== ENCOUNTER → 2021-09-09 19:49 | Outpatient (CLI) | payer MEDICAID, SELFPAY | PROVIDERS: PCP Podiatrist; Visit Provider Podiatrist | DX: B35.1 Tinea unguium (principal) | CPT/HCPCS: 87102; 87206; 87220 ==

== ENCOUNTER → 2021-11-24 09:13 | Outpatient (CLI) | payer MEDICAID, SELFPAY ==
[2021-11-24 09:55] LABS: Basophils # 0.1 K/mm3 (0-0.2); Basophils % 0.9 % (0.1-2.0); Eosinophils # 0.2 K/mm3 (0.0-0.4); Eosinophils % 1.4 % (0.1-12.0); Hematocrit 38.9 % (37.0-47.0); Hemoglobin 12.1 g/dL (12.2-16.2); Lymphocytes # 2.7 K/mm3 (0.7-4.5); Lymphocytes % 25.3 % (10-50); Mean Corpuscular HGB Conc 31.2 g/dL (31.8-35.4); Mean Corpuscular Hemoglobin 23.3 pg (27.0-31.2); Mean Corpuscular Volume 74.7 fl (81-99); Mean Platelet Volume 8.8 fl (7.4-10.4); Monocytes # 0.5 K/mm3 (0.1-1.0); Monocytes % 4.5 % (1.7-9.3); Neutrophils # 7.3 K/mm3 (1.8-7.8); Neutrophils % 67.8 % (37.0-80.0); Platelet Count 303 K/mm3 (142-424); Red Blood Count 5.21 M/mm3 (4.20-5.40); White Blood Count 10.7 K/mm3 (4.8-10.8)
[2021-11-24 10:18] LABS: Chloride 103 mmol/L (98-107); Potassium 4.2 mmoL/L (3.5-5.1); Sodium 141 mmol/L (136-145)
[2021-11-24 10:20] LABS: Alanine Aminotransferase 20 U/L (12-78); Anion Gap 15.2 mEq/L (5-15); Aspartate Amino Transferase 21 U/L (14-36); Blood Urea Nitrogen 10 mg/dl (7-17); Carbon Dioxide 27 mmol/L (22.0-30.0); Estimated Glomerular Filt Rate 101 ml/min (>60); GFR (African American) 122 ML/MIN (>60)
[2021-11-24 10:21] LABS: Albumin Level 4.2 g/dl (3.5-5.0); Alkaline Phosphatase 78 U/L (38-126); Calcium 8.8 mg/dl (8.4-10.2); Glucose 105 mg/dl (74-100); Total Protein,Serum 6.8 g/dl (6.3-8.2)
[2021-11-24 10:33] LABS: Bilirubin,Total < 0.1 mg/dl (0.2-1.3)
[2021-11-24 10:36] LABS: Free T4 (Free Thyroxine) 1.07 ng/dl (0.78-2.19)
[2021-11-24 10:51] LABS: Thyroid Stimulating Hormone 1.74 uIU/mL (0.465-4.68)
[2021-11-24 10:54] LABS: Bilirubin,Indirect 0.1 mg/dL (0.0-0.9)
== END ==
PROVIDERS: PCP Nurse Practitioner Family; Visit Provider Nurse Practitioner Family
DX: R06.00 Dyspnea, unspecified (principal); R07.9 Chest pain, unspecified; R42 Dizziness and giddiness; R00.2 Palpitations; I63.9 Cerebral infarction, unspecified; E11.9 Type 2 diabetes mellitus without complications; R60.9 Edema, unspecified
CPT/HCPCS: 36415; 80048; 80076; 84439; 84443; 85025; 93270

== ENCOUNTER 2021-11-28 11:31 | Emergency (ER) | payer MEDICAID, SELFPAY ==
--- NOTE | 2021-11-28 12:18 | EXP.UTC ---
Discharge Plan Disposition Patient Disposition: Home, Self-Care Condition: Good Prescriptions Prescriptions: New triamcinolone acetonide 0.025 % cream 1 applic topical DAILY Qty: 15 1RF methylprednisolone 4 mg Tablets,Dose Pack 4 mg PO DIRECTED Qty: 21 0RF No Action Ajovy Autoinjector 225 mg/1.5 mL auto-injector 225 mg SQ QMONTH Qty: 1.5 5RF sertraline [Zoloft] 100 mg tablet 100 mg PO DAILY Qty: 30 1RF quetiapine [Seroquel] 50 mg tablet 50 mg PO QHS Qty: 30 1RF itraconazole [Sporanox Pulsepak] 100 mg capsule 100 mg PO DAILY Qty: 30 0RF Rx Instructions: must administer with a meal/food; advise to not take while also having migraine medication Ubrelvy ciclopirox 8 % solution 1 applic topical DAILY 90 Days Qty: 6.6 3RF Rx Instructions: Apply directed to affected toenail daily. Smooth with emery board weekly. Ubrelvy 100 mg tablet 100 mg PO ONCE PRN (Reason: migraine headache) Qty: 10 5RF Rx Instructions: Take 100 mg at onset of headache. May repeat after 2 hours if symptoms persist. Max dose 2 tablets in 24 hours. omeprazole 20 mg capsule,delayed release(DR/EC) See Rx Instructions .ROUTE .COMPLEX Qty: 90 0RF Dose Instruction: TAKE 1 CAPSULE BY MOUTH DAILY FOR GERD Rx Instructions: TAKE 1 CAPSULE BY MOUTH DAILY FOR GERD Referrals Follow up/Referrals: Chilango Landeros APRN [Primary Care Provider] - See instructions Activity Restrictions/Add. Instructions Additional Instructions/Restrictions: Notify your flower cheniller about your allergy to the adhesive. Follow up with your regular doctor. GO TO THE ER FOR ANY WORSENING SYMPTOMS OR CONCERNS Clinical Impressions Clinical Impression: Contact dermatitis Instructions Patient Instructions: Contact Dermatitis, DI for Contact Dermatitis Discharge ED Provider: Jeffry Odell [facility] General Stated complaint: reaction to heart monitor Time Seen by Provider: 11/28/21 12:18 History of Present Illness Provider Complaint: She has been wearing a heart monitor for the past 3 days. She is having severe itching and skin irritation from the chest leads sticking to her skin. She denies any other complaint. She has been having palpitations for the past several weeks is why she is wearing the heart monitor. Related Data Previous Rx's Medication Instructions Recorded ubrogepant 100 mg tablet (Ubrelvy) 100 mg PO ONCE PRN migraine 06/04/21 headache #10 tabs fremanezumab-vfrm 225 mg/1.5 mL 225 mg (1.5 mL) SQ QMONTH chronic 10/22/21 subcutaneous auto-injector (Ajovy) migraine #1.5 mL ciclopirox 8 % topical solution 1 applic topical DAILY fungus 90 10/28/21 days #6.6 mL itraconazole 100 mg capsule 100 mg PO DAILY #30 caps 10/28/21 (Sporanox Pulsepak) omeprazole 20 mg capsule,delayed See Rx Instructions .Route 11/18/21 release .COMPLEX #90 caps quetiapine 50 mg tablet (Seroquel) 50 mg PO QHS #30 tabs 11/18/21 sertraline 100 mg tablet (Zoloft) 100 mg PO DAILY #30 tabs 11/18/21 methylprednisolone 4 mg tablets in 4 mg PO DIRECTED #21 tabs 11/28/21 a dose pack triamcinolone acetonide 0.025 % 1 applic topical DAILY #15 grams 11/28/21 topical cream Allergies Allergy/AdvReac Type Severity Reaction Status Date / Time No Known Allergies Allergy Verified 11/28/21 12:24 [facility] Medical History Concussion Deviated nasal septum Generalized anxiety disorder History of cocaine use Impetigo Insomnia Knee internal derangement Migraine Nephrolithiasis Personal history of COVID-19 Positive urine drug screen Surgical History H/O: History of delivery History of right knee surgery Previous section Family History Other Cancer Coronary artery disease Diabetes Hyperlipidemia Hyperte
[2021-11-28 12:21] VITALS: BP 115/84; PULSE 63; RESP 18; TEMP 36.8; O2SAT 95; BMI 27.4
[2021-11-28 12:55] VITALS: BP 115/84; PULSE 63; RESP 18; TEMP 36.8
== END 2021-11-28 12:56 | disposition home or self-care (01) ==
LOC: ER 11:33 → UTC 11:35
PROVIDERS: Emergency Provider Nurse Practitioner Family; PCP Nurse Practitioner Family
DX: L24.9 Irritant contact dermatitis, unspecified cause (principal); L23.1 Allergic contact dermatitis due to adhesives; K21.9 Gastro-esophageal reflux disease without esophagitis; G43.909 Migraine, unspecified, not intractable, without status migrainosus; J34.2 Deviated nasal septum; F41.1 Generalized anxiety disorder; Z86.16 Personal history of COVID-19; Z79.52 Long term (current) use of systemic steroids; Z79.899 Other long term (current) drug therapy; Z82.49 Family history of ischemic heart disease and other diseases of the circulatory system; Z83.3 Family history of diabetes mellitus; Z83.438 Family history of other disorder of lipoprotein metabolism and other lipidemia; Z80.9 Family history of malignant neoplasm, unspecified
CPT/HCPCS: 99213; G0463

== ENCOUNTER → 2021-12-01 13:13 | Outpatient (CLI) | payer MEDICAID, SELFPAY ==
--- NOTE | 2021-12-01 | CA_ITS ---
APPROVED REPORT Exam: Exercise Treadmill Technologist: Jennifer Martinez, Ht: 5 ft 9 in Wt: 187 lbs BSA: 2.01 m2 HR: 78 bpm BP: 110/80 mmHg Rhythm: sinus arrhythmia Medical History Medications: Omeprazole,,,,, Zoloft,,,,, Quetiapine,,,,, UBrelvy,,,,, AJOVY,,,,, Itraconazole,,,,, Cardiac Risk Factors: Smoking Stress Test Details Test: Mago HR Resting HR: 85 bpm Max Heart Rate (APMHR): 194.812884 bpm Max HR Achieved: 156 bpm Target HR (85% APMHR): 164.153670 bpm % of APMHR: 80.41 Recovery HR: 136 bpm BP Resting BP: 119/85 mmHg Max BP: 139/95 mmHg Recovery BP: 139.0/95.0 mmHg ECG Resting ECG: sinus arrhythmia Clinical Exercise duration: 07:14 min Highest Stage Achieved: Exercise capacity: 10.1 METs Stress ECG Conclusion During mago protocol pt exercised total of 7:14 into stage 3 of mago protocol. Stopped due to SOB. Pt experinced SOB and chest pressure. No arrhythmias noted. ST response to exercise is within normal for HR achieved. Nonspecific T wave inversions in the anterolateral leads in late recovery. Probably normal GXT to HR achieved, 80% of PM. GXT only. Test Summary REST . . . . . . . Sitting REST . . . . . . . Standing REST 03:24 0.0 0.0 85 . 119/ 85 . . Stage 1 01:00 10.0 1.7 106 . . . . Stage 1 02:00 10.0 1.7 116 . . . . Stage 1 03:00 10.0 1.7 120 . 120/ 78 . . Stage 2 01:00 12.0 2.5 131 . . . . Stage 2 02:00 12.0 2.5 140 . . . . Stage 2 03:00 12.0 2.5 141 . 122/ 76 . . Stage 3 01:00 14.0 3.4 155 . . . . Stage 3 01:14 14.0 3.4 156 . . . Stop exercise at 07:14 RECOVERY 01:00 0.0 0.0 136 . . . . RECOVERY 02:00 0.0 0.0 109 . 139/ 95 . . RECOVERY 03:00 0.0 0.0 105 . 136/ 93 . . RECOVERY 04:00 0.0 0.0 88 . 129/ 90 . . RECOVERY 05:00 0.0 0.0 96 . 121/ 90 . . RECOVERY 06:00 0.0 0.0 93 . 121/ 90 . . RECOVERY 07:00 0.0 0.0 81 . 121/ 90 . . RECOVERY 07:17 0.0 0.0 89 . 121/ 90 . . Electronically signed by : Elton Francis MD 12/02/2021 06:33:30
--- NOTE | 2021-12-01 13:15 | CA_ITS ---
APPROVED REPORT EXAM: Comprehensive 2D, Doppler, and color-flow Echocardiogram Medical Communication Specialist: Inna Bill RVT Ht: 5 ft 9 in Wt: 187lbs BSA: 2.01 BP: 130/68 mmHg Indications: SOA,CP,PALPS 2D Dimensions LVOT 2.13 cm (M/F) 1.5-2.5 LA Volume 21.70 mL LA Volume Index 10.85 mL/m2 (M/F) 16-34 M-Mode Dimensions RVDd 2.22 cm (0.9-2.6) LA Diam 2.13 cm (1.9-4.0) LVDd 4.95 cm (3.5-5.7) Ao Diam 2.96 cm (2.0-3.7) LVDs 3.44 cm (3.5-5.7) IVSd 1.36 cm (0.6-1.1) PWd 0.39 cm (0.6-1.1) EF (Teich) 57.70% FS 30.50% EDV (Teich) 115.50 mL TAPSE 1.79 (<1.7) ESV (Teich) 48.80 mL LV Diastology E Decel Time 270.00 (160-240 msec) E/A Ratio 1.0 MED E' 7.00 (< 7 cm/sec) E'/MED E' Ratio 7.77 (>14) LAT E' 10.40 (<10 cm/sec) E/LAT E' Ratio 5.23 (>14) Aortic Valve AO Peak GR. 3.80 mmHg Mitral Valve MV E Max Wilian. 54.00 (40-130 cm/s) MV A Velocity 56.00 (40-130 cm/s) E/A Ratio 0.98 MV Decel. Time 270.00 (160-240 ms) MV PHT 79.00 ms Pulmonary Valve PV Peak Velocity 66.00 (50-150 cm/s) Left Ventricle Left atrium normal size, left ventricle is normal size, estimated ejection fraction 55% with no regional wall motion abnormality, diastolic parameters are inconclusive in the study. Right Ventricle Right atrium and right ventricle are normal size and contractility. Aortic Valve Aortic valve is grossly normal there is no aortic stenosis aortic insufficiency. Mitral Valve Mitral valve grossly normal, there is no significant mitral regurgitation. Tricuspid Valve Tricuspid valve grossly normal, there is no significant tricuspid regurgitation. Pulmonic Valve Pulmonic valve is poorly visualized. Great Vessels Aortic root is normal size. Inferior vena cava normal size normal inspiratory collapse. Pericardium No significant pericardial effusion noted. Conclusion 1. Normal left ventricular size preserved left ventricular systolic function, estimated ejection fraction 55% with no regional wall motion abnormality, diastolic parameters are inconclusive. 2. Trace mitral and tricuspid regurgitation. 3. No significant pericardial effusion noted. 4. Inferior vena cava normal size with normal inspiratory collapse. Electronically signed by : Elton Francis MD 12/01/2021 20:17:46
== END ==
PROVIDERS: PCP Nurse Practitioner Family; Visit Provider Nurse Practitioner Family
DX: R07.9 Chest pain, unspecified (principal); R42 Dizziness and giddiness
CPT/HCPCS: 93017; 93306

== ENCOUNTER 2021-12-08 14:00 | Outpatient (RCR) | payer MEDICAID, SELFPAY | END 2021-12-08 14:05 | disposition home or self-care (01) | LOC: PT 14:00 | PROVIDERS: PCP Nurse Practitioner Family; Visit Provider Orthopaedic Surgery | DX: M25.561 Pain in right knee (principal) | CPT/HCPCS: 97010; 97014; 97033; 97035; 97110; 97163; 97164; G0283 ==

== ENCOUNTER → 2022-01-05 13:30 | Outpatient (CLI) | payer MEDICAID, SELFPAY ==
[2022-01-05 18:25] LABS: Basophils # 0.1 K/mm3 (0-0.2); Basophils % 0.7 % (0.1-2.0); Eosinophils # 0.2 K/mm3 (0.0-0.4); Eosinophils % 1.8 % (0.1-12.0); Hematocrit 40.6 % (37.0-47.0); Hemoglobin 12.5 g/dL (12.2-16.2); Lymphocytes % 24.7 % (10-50); Mean Corpuscular HGB Conc 30.8 g/dL (31.8-35.4); Mean Corpuscular Hemoglobin 23.2 pg (27.0-31.2); Mean Corpuscular Volume 75.5 fl (81-99); Mean Platelet Volume 9.2 fl (7.4-10.4); Monocytes # 0.4 K/mm3 (0.1-1.0); Monocytes % 3.5 % (1.7-9.3); Neutrophils # 8.5 K/mm3 (1.8-7.8); Neutrophils % 69.3 % (37.0-80.0); Platelet Count 384 K/mm3 (142-424); Red Blood Count 5.38 M/mm3 (4.20-5.40); Red Cell Distribution Width 16.2 % (11.5-17.5); White Blood Count 12.3 K/mm3 (4.8-10.8)
[2022-01-05 18:27] LABS: Chloride 103 mmol/L (98-107); Potassium 4.8 mmoL/L (3.5-5.1); Sodium 138 mmol/L (136-145)
[2022-01-05 18:29] LABS: Alanine Aminotransferase 18 U/L (12-78); Alkaline Phosphatase 99 U/L (38-126); Aspartate Amino Transferase 27 U/L (14-36); Bilirubin,Total 0.3 mg/dl (0.2-1.3); Blood Urea Nitrogen 12 mg/dl (7-17); Estimated Glomerular Filt Rate 121 ml/min (>60); GFR (African American) 146 ML/MIN (>60)
[2022-01-05 18:30] LABS: Albumin Level 4.3 g/dl (3.5-5.0); Albumin/Globulin Ratio 1.5 (1.1-1.8); Anion Gap 14.8 mEq/L (5-15); Calcium 9.6 mg/dl (8.4-10.2); Carbon Dioxide 25 mmol/L (22.0-30.0); Chol/HDL Ratio 4.4 (1-3.5); Cholesterol 203 mg/dl (140-200); Globulin 2.9 g/dL (1.3-3.2); Glucose 85 mg/dl (74-100); HDL Cholesterol 46 mg/dl (40-60); Iron 30 ug/dL (37-170); Total Protein,Serum 7.2 g/dl (6.3-8.2); Triglycerides 161 mg/dl (30-150); VLDL Cholesterol 32 mg/dL (0-40)
[2022-01-05 18:40] LABS: Total Iron Binding Capacity 386 ug/dL (265-497)
[2022-01-05 18:41] LABS: Direct LDL Cholesterol 124.37 mg/dL (100-129)
[2022-01-05 18:50] LABS: Hemoglobin A1C 5.8 % (4.0-6.0)
[2022-01-05 19:01] LABS: Thyroid Stimulating Hormone 1.14 uIU/mL (0.465-4.68)
[2022-01-05 19:05] LABS: 25-OH Vitamin D, Total 23.6 ng/mL (30-100)
== END ==
PROVIDERS: PCP Student in an Organized Health Care Education/Training Program; Visit Provider Student in an Organized Health Care Education/Training Program
DX: S41.159A Open bite of unspecified upper arm, initial encounter (principal); R53.83 Other fatigue; W50.3XXA Accidental bite by another person, initial encounter; Z86.32 Personal history of gestational diabetes; E55.9 Vitamin D deficiency, unspecified
CPT/HCPCS: 80053; 80061; 82306; 83036; 83540; 83550; 84443; 85025

== ENCOUNTER → 2022-01-22 10:03 | Outpatient (CLI) | payer MEDICAID, SELFPAY ==
--- NOTE | 2022-01-22 10:10 | XR_ITS ---
FINAL REPORT CLINICAL HISTORY: rt knee pain COMPARISON: July 28, 2021 FINDINGS: RIGHT KNEE Three views of the right knee reveal no evidence of fracture or dislocation. The bony alignment is normal. The joint spaces are preserved. There is no evidence of joint effusion. No localized soft tissue abnormality is identified. IMPRESSION: No acute abnormality identified. Reviewed, Interpreted and Dictated by Jose Stone III, MD Transcribed by Shana Bustillo Authenticated and [facility]
== END ==
PROVIDERS: PCP Nurse Practitioner Family; Visit Provider Orthopaedic Surgery
DX: M25.561 Pain in right knee (principal)
CPT/HCPCS: 73562

== ENCOUNTER 2022-01-22 11:13 | Outpatient (RCR) | payer MEDICAID, SELFPAY | END 2022-01-22 12:15 | disposition home or self-care (01) | LOC: PT 11:13 | PROVIDERS: Visit Provider Orthopaedic Surgery | DX: M25.561 Pain in right knee (principal); S83.271D Complex tear of lateral meniscus, current injury, right knee, subsequent encounter | CPT/HCPCS: 97760 ==

== ENCOUNTER → 2022-02-26 09:46 | Outpatient (CLI) | payer MEDICAID, SELFPAY ==
[2022-02-26 10:08] LABS: Microscopic, Urine URINE MICROSCOPIC (MICROSCOPIC)
[2022-02-26 10:42] LABS: Basophils # 0.1 K/mm3 (0-0.2); Eosinophils # 0.2 K/mm3 (0.0-0.4); Eosinophils % 1.9 % (0.1-12.0); Hematocrit 38.2 % (37.0-47.0); Hemoglobin 12.5 g/dL (12.2-16.2); Lymphocytes # 2.5 K/mm3 (0.7-4.5); Lymphocytes % 25.4 % (10-50); Mean Corpuscular HGB Conc 32.7 g/dL (31.8-35.4); Mean Corpuscular Hemoglobin 24.2 pg (27.0-31.2); Mean Corpuscular Volume 73.9 fl (81-99); Monocytes # 0.4 K/mm3 (0.1-1.0); Monocytes % 4.1 % (1.7-9.3); Neutrophils # 6.6 K/mm3 (1.8-7.8); Neutrophils % 67.6 % (37.0-80.0); Platelet Count 281 K/mm3 (142-424); Red Blood Count 5.16 M/mm3 (4.20-5.40); Red Cell Distribution Width 16.6 % (11.5-17.5); White Blood Count 9.7 K/mm3 (4.8-10.8)
[2022-02-26 11:01] LABS: Alanine Aminotransferase 15 U/L (12-78); Albumin Level 4.5 g/dl (3.5-5.0); Albumin/Globulin Ratio 1.6 (1.1-1.8); Alkaline Phosphatase 76 U/L (38-126); Anion Gap 14.6 mEq/L (5-15); Aspartate Amino Transferase 21 U/L (14-36); Bilirubin,Total 0.3 mg/dl (0.2-1.3); Blood Urea Nitrogen 14 mg/dl (7-17); Calcium 9.2 mg/dl (8.4-10.2); Carbon Dioxide 25 mmol/L (22.0-30.0); Chloride 106 mmol/L (98-107); Estimated Glomerular Filt Rate 101 ml/min (>60); GFR (African American) 122 ML/MIN (>60); Globulin 2.8 g/dL (1.3-3.2); Glucose 104 mg/dl (74-100); Potassium 4.6 mmoL/L (3.5-5.1); Sodium 141 mmol/L (136-145); Total Protein,Serum 7.3 g/dl (6.3-8.2)
[2022-02-26 11:18] LABS: Appearance,Urine CLEAR (Clear); Bilirubin,Urine Negative (Negative); Blood, Urine Negative (Negative); Color,Urine YELLOW (Yellow); Glucose,Urine (UA) Negative (Negative); Ketones,Urine Negative (Negative); Leukocyte Esterase,Urine Negative (Negative); Nitrate,Urine Negative (Negative); Protein,Urine Negative (Negative); Urobilinogen,Urine 0.2 EU/dl (0.2)
[2022-02-26 11:23] LABS: Urine Pregnancy, HCG Qual. Negative (Negative)
[2022-02-26 11:30] LABS: Bacteria,Urine Trace /lpf; RBC,Urine Occasional #/hpf (0-3); Squamous Epithelial Cell,Urine Occasional #/hpf (0-5)
== END ==
PROVIDERS: PCP Nurse Practitioner Family; Visit Provider Orthopaedic Surgery
DX: Z01.818 Encounter for other preprocedural examination (principal)
CPT/HCPCS: 36415; 80053; 81001; 81025; 85025

== ENCOUNTER 2022-03-05 11:58 | Day surgery (SDC) | payer MEDICAID, SELFPAY ==
[2022-03-03 10:15] VITALS: BMI 27.0
[2022-03-05] VITALS (11 sets, daily range): BP systolic 108–152; BP diastolic 65–98; PULSE 77–120; RESP 17–18; TEMP 36.2–43; O2SAT 95–100
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
--- NOTE | 2022-03-05 15:05 | EXP.OP.NOTE ---
Date of procedure: 03/05/22 Pre-op Diagnosis:: Right knee lateral meniscus tear Post-op Diagnosis:: Right knee lateral meniscus tear Procedure performed:: Right knee arthroscopy with partial lateral meniscectomy Surgeon:: Oliverio Yang MD [employer] To Door Fundraising Collector(s):: None SURGICAL BRACE MAKER:: Other Anesthesia: GETA and local Estimated blood loss (mL): 5 Clinical Note:: Caren is a pleasant 26-year-old female has been dealing with right lateral knee pain secondary to a lateral meniscus tear as seen on MRI. History of a knee scope with lateral meniscus repair about 10 years ago. We discussed all the risks, benefits and alternatives to right knee arthroscopy for partial lateral meniscectomy and she agreed to proceed. Surgical consent form was signed. Operative findings:: Right knee complex tear posterior horn and body of the medial meniscus with evidence of prior lateral meniscus repair. Operative note:: She was seen in the preoperative holding area. The right knee was marked to confirm the correct operative site. She received Ancef 2 g ibuprofen antibiotics within 1 hour incision time and she was brought back to the OR. General anesthesia induced out difficulty. Right lower extremity prepped and draped in the usual sterile fashion. Timeout performed to confirm right knee arthroscopy on patient Caren Pergram. I made an anterolateral viewing portal with an 11 blade scalpel. Arthroscope was introduced into the knee joint. I made an anteromedial portal localizing this with a spinal needle and then making this incision with an 11 blade scalpel as well. Diagnostic arthroscopy commenced. No significant chondromalacia in the patellofemoral and medial compartments. Medial meniscus was intact. Cruciate ligaments intact. She was placed in the [id number] position. Lateral compartment revealed very mild chondromalacia of the lateral femoral condyle and lateral tibial plateau. No significant chondral flap tears. She had a complex tear posterior horn and body of the lateral meniscus with evidence of prior lateral meniscus repair. A meniscal repair device was at the inner edge of the body of the lateral meniscus. This was removed with a biter and 4.0 mm shaver. The complex tear was then debrided with the shaver back to smooth stable border removing approximately inner third to half of the body of the lateral meniscus as well as some undersurface tearing of the posterior horn of the lateral meniscus. Final pictures were taken and saved. Arthroscopy instruments removed from the joint. Arthroscopy fluid suctioned and drained from the joint. Portals were closed with 4-0 Monocryl subcuticular stitches. Sterile dressing was applied with Steri-Strips, 4 x 4's, ABD, soft roll and Chris bandage. Anesthesia reversed out difficulty. Transferred to recovery in stable condition. All sponge and needle counts correct x2. Tourniquet time (min): 0 Condition: stable Disposition: PACU Specimens:: None Complications:: None
--- NOTE | 2022-03-05 15:12 | P.PNANES_ITS ---
[facility] [place] Anesthesia Record Part I Anesthesia Record I Intake, IV Amount: 300 Estimated blood loss (mL): 5 Urine output (mL): 0 Blood Products used (#): none Blood Pressure: 122/65 SaO2: 97 Pulse Rate: 120 Respiratory Rate: 18 Temperature: 97.3 F Patient is:: Drowsy and Stable Stable to PACU at:: 15:05
--- NOTE | 2022-03-08 07:57 | EXP.ANES.II ---
[facility] Anesthesia Record Part II Anesthesia Record Part II Discharge Time: 15:35 Destination: [facility] PACU nurse assessment reviewed?: Yes Patient Condition:: Good Anesthesia Complications:: None Swallowing reflex intact?: Yes Cyanosis?: No Blood Pressure: 117/78 Pulse Rate: 82 Temperature: 98.3 F Mental Status: Alert & Oriented Pain level:: 5 Nausea and/or vomitting:: None Intake, IV Amount: 1,800
[2022-03-08 07:58] VITALS: BP 117/78; PULSE 82; TEMP 36.8
== END 2022-03-05 16:13 | disposition home or self-care (01) ==
PROVIDERS: PCP Nurse Practitioner Family; Visit Provider Orthopaedic Surgery
PROC: (CPT 29870; principal; 2022-03-05 14:00)
DX: M23.221 Derangement of posterior horn of medial meniscus due to old tear or injury, right knee (principal); M23.261 Derangement of other lateral meniscus due to old tear or injury, right knee
CPT/HCPCS: 29880; 96374; J2405

== ENCOUNTER → 2022-03-30 23:52 | Outpatient (CLI) | payer MEDICAID, SELFPAY | PROVIDERS: PCP Student in an Organized Health Care Education/Training Program; Visit Provider Student in an Organized Health Care Education/Training Program | DX: J02.9 Acute pharyngitis, unspecified (principal) | CPT/HCPCS: 87070 ==

== ENCOUNTER 2022-05-05 08:30 | Outpatient (RCR) | payer MEDICAID, SELFPAY ==
--- NOTE | 2022-04-21 11:25 | HMH.PTOPEV ---
PT Outpatient Evaluation Rehab PT Outpatient Evaluation Start: 04/21/22 11:13 Freq: Status: Active Protocol: Document 04/21/22 11:13 EVGENY (Rec: 04/21/22 11:25 EVGENY [id number]) E-signed By Mynor Schilling, PT Outpatient Therapy Subjective History Subjective History Pt presents s/p right knee partial lateral meniscectomy w /scope on 03/05/22. Pt reports improved right knee s/s since sx., with some lingering lateral aspect soreness, and apprehension with right knee ROM. Pt reports 2x previous right knee sx. in 2011 and 2012, and 'I hadn't had trouble until I reinjured it last July.' Chief Complaint Pain,Spasms,Weakness Symptom Type Ache,Dull Symptoms Relieved By Rest/Positioning,Ice Symptoms Aggravated By Standing,Physical Activity, Walking Prior Functional Limitations Standing,Walking,Stairs Current Functional Limitations Standing,Walking,Stairs Symptom Description Constant but Variable Level of pain today (0-10) 2 Pain scale - at its best (0-10) 2 Pain scale - at its worst (0-10) 5 Hip/Knee Eval Gait Observation General Gait Pattern Observation Antalgic Gait Assistive Device Assistive Devices None / NA Palpation Tenderness right Knee Palpation Finding Tenderness Knee Palpation Overall Comment 3/4 lateral jt line, 1-2/4 medial jt line MMT Hip Flexion Strength Grade 4- Good- Hip Abduction Strength Grade 4- Good- Hip Adduction Strength Grade 4 Good Hip Extension Strength Grade 4- Good- Knee Extension Strength Grade 4 Good Knee Flexion Strength Grade 4- Good- ROM Knee Flexion Active Range of Motion ( 2-90 degrees) Knee Flexion Passive Range of Motion ( 0-134 degrees) Effusion joint effusion knee exam standard right Mid - Patellar Circumerential Measure ( 38.5 cm) Outpatient Therapy Assessment Impairments Problems/Impairmments Palpation Tenderness,Impaired Range of Motion,Impaired Strength,Impaired Gait Pattern ,Impaired Walking,Impaired Standing,Impaired Household Care,Impaired Stair Climbing, Increased Edema,Subjective C/O Pain,Impaired Self Care/Self
== END 2022-05-05 08:35 | disposition home or self-care (01) ==
LOC: PT 08:30
PROVIDERS: PCP Student in an Organized Health Care Education/Training Program; Visit Provider Orthopaedic Surgery
DX: S83.281D Other tear of lateral meniscus, current injury, right knee, subsequent encounter (principal)
CPT/HCPCS: 97010; 97014; 97110; 97163; G0283

== ENCOUNTER 2022-08-21 00:54 | Emergency (ER) | payer MEDICAID, SELFPAY ==
[2022-08-21 00:38] VITALS: BP 132/75; PULSE 76; RESP 20; O2SAT 98; BMI 26.2
--- NOTE | 2022-08-21 00:50 | PC.NURSE ---
Dr Ponce at bedside, pt now complaining of neck pain. C collar placed
--- NOTE | 2022-08-21 00:58 | XR_ITS ---
PROCEDURE INFORMATION: Exam: XR Pelvis Exam date and time: 08/21/2022 1:25 AM Age: 26 years old Clinical indication: Injury or trauma; Fall; Blunt trauma (contusions or hematomas); Bilateral; Pelvic region TECHNIQUE: Imaging protocol: Radiologic exam of the pelvis. Views: 1 or 2 view. COMPARISON: CT ABDOMEN PELVIS W CON 28/06/2019 13:15 FINDINGS: Bones/joints: No acute fracture or dislocation. Soft tissues: Unremarkable. IMPRESSION: No acute fracture or dislocation.
--- NOTE | 2022-08-21 00:58 | XR_ITS ---
PROCEDURE INFORMATION: Exam: XR Thoracic Spine Exam date and time: 08/21/2022 1:24 AM Age: 26 years old Clinical indication: Injury or trauma; Fall; Blunt trauma (contusions or hematomas) TECHNIQUE: Imaging protocol: Radiologic exam of the thoracic spine. Views: 3 views. COMPARISON: CT THORACIC SPINE WO CON 04/11/2018 12:45 FINDINGS: Bones/joints: Normal. No acute fracture. Normal alignment. Soft tissues: Unremarkable. IMPRESSION: No acute findings.
--- NOTE | 2022-08-21 00:58 | XR_ITS ---
PROCEDURE INFORMATION: Exam: XR Chest Exam date and time: 08/21/2022 1:23 AM Age: 26 years old Clinical indication: Injury or trauma; Fall; Blunt trauma (contusions or hematomas) TECHNIQUE: Imaging protocol: Radiologic exam of the chest. Views: 1 view. COMPARISON: CR XR CHEST 2V 27/05/2021 22:44 FINDINGS: Lungs: Left retrocardiac granuloma. Pleural spaces: Unremarkable. No pleural effusion. No pneumothorax. Heart/Mediastinum: Unremarkable. No cardiomegaly. Bones/joints: Unremarkable. IMPRESSION: No acute findings.
--- NOTE | 2022-08-21 00:58 | XR_ITS ---
PROCEDURE INFORMATION: Exam: XR Lumbosacral Spine Exam date and time: 08/21/2022 1:24 AM Age: 26 years old Clinical indication: Injury or trauma; Fall; Blunt trauma (contusions or hematomas) TECHNIQUE: Imaging protocol: Radiologic exam of the lumbosacral spine. Views: 2 or 3 views. COMPARISON: CT LUMBAR SPINE WO CON 04/11/2018 12:48 FINDINGS: Bones/joints: Normal. No acute fracture. Normal alignment. Soft tissues: Unremarkable. IMPRESSION: No acute findings.
--- NOTE | 2022-08-21 00:59 | CT_ITS ---
PROCEDURE INFORMATION: Exam: CT Cervical Spine Without Contrast Exam date and time: 08/21/2022 1:28 AM Age: 26 years old Clinical indication: Injury or trauma; Fall; Additional info: Trauma, critical injury suspected TECHNIQUE: Imaging protocol: Computed tomography of the cervical spine without contrast. Radiation optimization: All CT scans at this facility use at least one of these dose optimization techniques: automated exposure control; mA and/or kV adjustment per patient size (includes targeted exams where dose is matched to clinical indication); or iterative reconstruction. REPORTING DATA: Count of CT and Cardiac NM exams in prior 12 months: This patient has received 0 known CTs and 0 known cardiac nuclear medicine studies in the 12 months prior to the current study. COMPARISON: CR XR CERVICAL SPINE W FLEX/EXT 09/03/2021 10:25 FINDINGS: Bones/joints: Straightening of the curvature of the cervical spine is likely positional. Lungs: Lung apices are normal. Soft tissues: Unremarkable. IMPRESSION: No acute fracture or malalignment of the cervical spine.
--- NOTE | 2022-08-21 00:59 | CT_ITS ---
PROCEDURE INFORMATION: Exam: CT Head Without Contrast Exam date and time: 08/21/2022 1:26 AM Age: 26 years old Clinical indication: Injury or trauma; Fall; Additional info: Trauma, critical injury suspected TECHNIQUE: Imaging protocol: Computed tomography of the head without contrast. Radiation optimization: All CT scans at this facility use at least one of these dose optimization techniques: automated exposure control; mA and/or kV adjustment per patient size (includes targeted exams where dose is matched to clinical indication); or iterative reconstruction. REPORTING DATA: Count of CT and Cardiac NM exams in prior 12 months: This patient has received 0 known CTs and 0 known cardiac nuclear medicine studies in the 12 months prior to the current study. COMPARISON: CR XR CERVICAL SPINE W FLEX/EXT 09/03/2021 10:25 FINDINGS: Brain: Normal. No hemorrhage. Unremarkable white matter. No mass effect. Cerebral ventricles: No ventriculomegaly. Paranasal sinuses: Visualized sinuses are unremarkable. No fluid levels. Mastoid air cells: Visualized mastoid air cells are well aerated. Bones/joints: Unremarkable. No acute fracture. Soft tissues: Unremarkable. IMPRESSION: No acute intracranial findings.
--- NOTE | 2022-08-21 01:00 | HMH.EDALCO ---
Discharge Plan Disposition Patient Disposition: Home, Self-Care Condition: Good Prescriptions Prescriptions: New acetaminophen [Tylenol 8 Hour] 650 mg tablet extended release 650 mg PO Q8H PRN (Reason: pain) Qty: 30 0RF ibuprofen 600 mg tablet 600 mg PO Q6H PRN (Reason: pain (scale score 4-6)) Qty: 40 0RF No Action Ajovy Autoinjector 225 mg/1.5 mL auto-injector 225 mg SQ QMONTH Qty: 1.5 5RF mupirocin 2 % ointment 1 applic topical BID Qty: 15 0RF dtoanrodxd-nlidjzcmtxk-qtbtwqg 8-1-1 % solution 6.6 ml topical DAILY Qty: 15 0RF Rx Instructions: Patient is to apply to all nails for 7 days. At the end of the 7th day they should remove the nail [place] with nail [place] remove and start the application process. Results will not show for 3-4 months. ofloxacin 0.3 % drops 2 drp ophthalmic (eye) QID 7 Days Qty: 10 0RF Rx Instructions: Bilat Eyes sertraline [Zoloft] 100 mg tablet 150 mg PO DAILY Qty: 45 1RF quetiapine [Seroquel XR] 50 mg tablet extended release 24 hr 50 mg PO DAILY Qty: 30 2RF Rx Instructions: around 6pm fluticasone propionate 50 mcg/actuation spray,suspension 1 spray intranasal DAILY Qty: 16 2RF Rx Instructions: administer into each nostril Ubrelvy 100 mg tablet 100 mg PO ONCE PRN (Reason: migraine headache) Qty: 10 5RF Rx Instructions: Take 100 mg at onset of headache. May repeat after 2 hours if symptoms persist. Max dose 2 tablets in 24 hours. omeprazole 20 mg capsule,delayed release(DR/EC) 20 mg PO DAILY Rx Instructions: TAKE 1 CAPSULE BY MOUTH DAILY FOR GERD ferrous sulfate 325 mg (65 mg iron) tablet,delayed release (DR/EC) 325 mg PO Q OTHER DAY Rx Instructions: Take one tablet PO every other day. cholecalciferol (vitamin D3) 25 mcg (1,000 unit) capsule 25 mcg PO DAILY aspirin 325 mg tablet,delayed release (DR/EC) 325 mg PO DAILY Qty: 14 0RF Rx Instructions: Take with breakfast starting 03/06 for 2 weeks for DVT prophylaxis Referrals Follow up/Referrals: Chilango Landeros APRN [Primary Care Provider] - 3 days Activity Restrictions/Add. Instructions Additional Instructions/Restrictions: Please follow-up with your primary care doctor 1 to 2 days for follow-up from the fall and head injury. You have bruising to your left knee and neck and upper back and lower back. There is no fractures. You had a head injury but there is no bleeding in your brain or hematoma or skull fracture. Tylenol Motrin for pain I have placed a knee immobilizer in the left knee you can follow-up with your primary care doctor for the left knee pain there was no fracture there. Clinical Impressions Clinical Impression: Acute sprain of ligament of cervical spine Alcohol intoxication Qualifiers: Complication of substance-induced condition: uncomplicated Qualified Code(s): F10.920 - Alcohol use, unspecified with intoxication, uncomplicated Closed head injury Qualifiers: Encounter type: initial encounter Qualified Code(s): S09.90XA - Unspecified injury of head, initial encounter Contusion of knee, left Qualifiers: Encounter type: initial encounter Qualified Code(s): S80.02XA - Contusion of left knee, initial encounter Sprain lumbar region Qualifiers: Encounter type: initial encounter Qualified Code(s): S33.5XXA - Sprain of ligaments of lumbar spine, initial encounter Instructions Patient Instructions: DI for Diarrhea and Traveler's Diarrhea -- Adult, DI for Diarrhea and Traveler's Diarrhea -- Child, DI for Nausea -- Adult, DI for Nausea -- Child Discharge ED Provider: Zulma Ponce General Chief Complaint: Nausea/Vomiting/Diarrhea Stated Complaint: alcohol intoxication Time Seen by Provider: 08/21/22 01:00 Mode of Arrival: EMS Limitations: etoh intoxication Description of Symptoms (Recalled from ER Triage Doc. by RN): Pt states she was drinking at home with her cousins and when her
--- NOTE | 2022-08-21 01:03 | XR_ITS ---
PROCEDURE INFORMATION: Exam: XR Left Knee Exam date and time: 08/21/2022 1:26 AM Age: 26 years old Clinical indication: Injury or trauma; Fall; Blunt trauma; Knee; Left TECHNIQUE: Imaging protocol: Radiologic exam of the left knee. Views: 3 views. COMPARISON: CR XR KNEE LT 4V 28/07/2021 12:58 FINDINGS: Bones/joints: No acute fracture or dislocation. Soft tissues: Normal. IMPRESSION: No acute fracture or dislocation.
[2022-08-21 01:09] LABS: Chloride 106 mmol/L (98-107); Sodium 141 mmol/L (136-145)
[2022-08-21 01:12] LABS: Alanine Aminotransferase 20 U/L (12-78); Albumin/Globulin Ratio 1.4 (1.1-1.8); Alkaline Phosphatase 74 U/L (38-126); Anion Gap 17.6 mEq/L (5-15); Aspartate Amino Transferase 28 U/L (14-36); Bilirubin,Total 0.2 mg/dl (0.2-1.3); Blood Urea Nitrogen 9 mg/dl (7-17); Calcium 8.2 mg/dl (8.4-10.2); Carbon Dioxide 21 mmol/L (22.0-30.0); Creatinine Clearance Estimated 181 mL/min (50-200); Estimated Glomerular Filt Rate 121 ml/min (>60); Ethyl Alcohol 220 mg/dl (0-10); GFR (African American) 146 ML/MIN (>60); Globulin 2.9 g/dL (1.3-3.2); Glucose 118 mg/dl (74-100); Potassium 3.6 mmoL/L (3.5-5.1); Total Protein,Serum 6.9 g/dl (6.3-8.2)
[2022-08-21 01:14] LABS: Activated Partial Thrombo Time 25.8 seconds (22.8-30.6); HCG Qualitative, Serum Negative (Negative); INR 1.02 (0.9-1.1)
[2022-08-21 01:16] LABS: Microscopic, Urine URINE MICROSCOPIC (MICROSCOPIC)
[2022-08-21 01:17] LABS: Appearance,Urine CLEAR (Clear); Bilirubin,Urine Negative (Negative); Blood, Urine Negative (Negative); Color,Urine YELLOW (Yellow); Glucose,Urine (UA) Negative (Negative); Ketones,Urine Negative (Negative); Leukocyte Esterase,Urine Negative (Negative); Nitrate,Urine Negative (Negative); PH,Urine 5.5 (5.0-8.5); Protein,Urine Negative (Negative); Specific Gravity, Urine 1.015 (1.005-1.030); Urobilinogen,Urine 0.2 EU/dl (0.2)
[2022-08-21 01:23] LABS: Basophils % 0.2 % (0.1-2.0); Eosinophils # 0.1 K/mm3 (0.0-0.4); Eosinophils % 0.5 % (0.1-12.0); Hematocrit 38.5 % (37.0-47.0); Hemoglobin 12.2 g/dL (12.2-16.2); Lymphocytes # 1.9 K/mm3 (0.7-4.5); Lymphocytes % 16.9 % (10-50); Mean Corpuscular HGB Conc 31.8 g/dL (31.8-35.4); Mean Corpuscular Hemoglobin 24.5 pg (27.0-31.2); Mean Corpuscular Volume 77.2 fl (81-99); Mean Platelet Volume 8.3 fl (7.4-10.4); Monocytes # 0.4 K/mm3 (0.1-1.0); Monocytes % 3.8 % (1.7-9.3); Neutrophils # 8.9 K/mm3 (1.8-7.8); Neutrophils % 78.6 % (37.0-80.0); Platelet Count 249 K/mm3 (142-424); Red Blood Count 4.99 M/mm3 (4.20-5.40); Red Cell Distribution Width 15.8 % (11.5-17.5); White Blood Count 11.3 K/mm3 (4.8-10.8)
[2022-08-21 01:29] LABS: Bacteria,Urine Trace /lpf; Barbiturates Screen,Urine Negative ng/ml (<200); WBC,Urine Occasional #/hpf (0-3)
[2022-08-21 01:30] LABS: Amphetamine/Metha Screen,Urine Negative ng/ml (<1000); Benzodiazepines Screen,Urine Negative ng/ml (<200)
[2022-08-21 01:31] LABS: Cannabinoid Screen,Urine Positive ng/ml (<50)
[2022-08-21 01:32] LABS: Cocaine Screen,Urine Positive ng/ml (<300); Methadone Screen,Urine Negative ng/ml (<300)
[2022-08-21 01:33] LABS: Opiate Screen,Urine Negative ng/ml (<300); Phencyclidine Screen,Urine Negative ng/ml (<25)
[2022-08-21 03:18] VITALS: BP 109/69; BP 138/84; PULSE 74; PULSE 76; RESP 18; RESP 20; TEMP 36.4; TEMP 36.6; O2SAT 98
== END 2022-08-21 03:20 | disposition home or self-care (01) ==
PROVIDERS: Emergency Provider Emergency Medicine; PCP Nurse Practitioner Family
DX: S16.1XXA Strain of muscle, fascia and tendon at neck level, initial encounter (principal); S09.90XA Unspecified injury of head, initial encounter; S80.02XA Contusion of left knee, initial encounter; S33.5XXA Sprain of ligaments of lumbar spine, initial encounter; F10.920 Alcohol use, unspecified with intoxication, uncomplicated; J45.909 Unspecified asthma, uncomplicated; F41.1 Generalized anxiety disorder; W19.XXXA Unspecified fall, initial encounter
CPT/HCPCS: 70450; 71045; 72072; 72100; 72125; 72170; 73562; 80053; 80305; 81001; 84703; 85025; 85610; 85730; 96374; 96375; 99285; J0131; J2405

== ENCOUNTER 2022-09-16 17:50 | Emergency (ER) | payer MEDICAID, SELFPAY ==
[2022-09-16] VITALS (8 sets, daily range): BP systolic 109–122; BP diastolic 79–97; PULSE 53–79; RESP 18–20; TEMP 36.6; O2SAT 96–100; BMI 25.8
--- NOTE | 2022-09-16 17:49 | ECG_ITS ---
APPROVED REPORT Exam: Resting ECG HR:78 bpm ECG Measurements Heart Rate 78 AXES WY 158 P 67 QRSd 84 QRS 64 QT 363 T 55 QTc 396 Conclusion SINUS RHYTHM WITH SINUS ARRHYTHMIA LEFT ATRIAL Abnormality ABNORMAL ECG UNCONFIRMED REPORT Electronically signed by : Maulik Vu MD 09/17/2022 17:19:19
--- NOTE | 2022-09-16 18:56 | CT_ITS ---
PROCEDURE INFORMATION: Exam: CT Abdomen And Pelvis With Contrast Exam date and time: 09/16/2022 7:26 PM Age: 27 years old Clinical indication: Abdominal pain; Localized; Right upper quadrant (ruq); Additional info: R hemiabdominal pain worse ruq TECHNIQUE: Imaging protocol: Computed tomography of the abdomen and pelvis with contrast. Radiation optimization: All CT scans at this facility use at least one of these dose optimization techniques: automated exposure control; mA and/or kV adjustment per patient size (includes targeted exams where dose is matched to clinical indication); or iterative reconstruction. Contrast material: ISOVUE; Contrast volume: 75 ml; Contrast route: IV; REPORTING DATA: Count of CT and Cardiac NM exams in prior 12 months: This patient has received 2 known CTs and 0 known cardiac nuclear medicine studies in the 12 months prior to the current study. COMPARISON: CT ABDOMEN PELVIS W CON 06/28/2019 1:15 PM FINDINGS: Lungs: Included lung bases demonstrate no consolidation. Left lower lobe partially calcified 1 cm nodule is unchanged. Subpleural non-specific 3 mm right middle lobe nodule, no specific follow-up imaging indicated. Minimal dependent atelectasis. Liver: No suspicious liver lesions. There is mild focal fatty deposition along the fissure for ligamentum teres. Liver measures 21 cm over the right hepatic lobe on coronal view, unchanged. Gallbladder and bile ducts: Gallbladder is normal. No calcified stones. No ductal dilatation. Pancreas: Pancreas is normal. No ductal dilatation. Spleen: Spleen is normal. Adrenal glands: Adrenal glands are normal. No mass. Kidneys and ureters: Stable 1.2 cm complex cyst in the upper pole right kidney with small peripheral calcification and adjacent cortical scarring. No hydronephrosis or hydroureter. No renal stones. Stomach and bowel: No evidence of bowel obstruction or acute bowel abnormality. Colon is nondistended with no definite wall thickening. No pericolonic inflammatory changes. Appendix: The appendix is normal. No evidence of acute appendicitis. Intraperitoneal space: No free air. No significant fluid collection. Vasculature: No acute abnormality. No abdominal aortic aneurysm. Lymph nodes: No enlarged lymph nodes. Urinary bladder: Urinary bladder is unremarkable for degree of distention. Reproductive: Left adnexal 3 cm cyst, otherwise, unremarkable. Bones/joints: No acute osseous abnormality or suspicious osseous lesion. Soft tissues: Unremarkable. IMPRESSION: 1. No acute abnormality in abdomen or pelvis. 2. Stable right renal cyst with small peripheral calcification. 3. Left adnexal 3 cm cyst. 4. Other incidental findings as above.
--- NOTE | 2022-09-16 18:58 | HMH.EDGENADL ---
Discharge Plan Disposition Patient Disposition: Home, Self-Care Condition: Good Prescriptions Prescriptions: New nitrofurantoin monohyd/m-cryst [Macrobid] 100 mg capsule 100 mg PO BID 7 Days Qty: 14 0RF Rx Instructions: must administer with a meal/food ondansetron 4 mg tablet,disintegrating 4 mg PO Q8H 3 Days Qty: 9 0RF No Action Ajovy Autoinjector 225 mg/1.5 mL auto-injector 225 mg SQ QMONTH Qty: 1.5 5RF mupirocin 2 % ointment 1 applic topical BID Qty: 15 0RF zrngnqqikm-hohyathcnqg-lfvgska 8-1-1 % solution 6.6 ml topical DAILY Qty: 15 0RF Rx Instructions: Patient is to apply to all nails for 7 days. At the end of the 7th day they should remove the nail lao with nail lao remove and start the application process. Results will not show for 3-4 months. ofloxacin 0.3 % drops 2 drp ophthalmic (eye) QID 7 Days Qty: 10 0RF Rx Instructions: Bilat Eyes sertraline [Zoloft] 100 mg tablet 150 mg PO DAILY Qty: 45 1RF quetiapine [Seroquel XR] 50 mg tablet extended release 24 hr 50 mg PO DAILY Qty: 30 2RF Rx Instructions: around 6pm fluticasone propionate 50 mcg/actuation spray,suspension 1 spray intranasal DAILY Qty: 16 2RF Rx Instructions: administer into each nostril Ubrelvy 100 mg tablet 100 mg PO ONCE PRN (Reason: migraine headache) Qty: 10 5RF Rx Instructions: Take 100 mg at onset of headache. May repeat after 2 hours if symptoms persist. Max dose 2 tablets in 24 hours. omeprazole 20 mg capsule,delayed release(DR/EC) 20 mg PO DAILY Rx Instructions: TAKE 1 CAPSULE BY MOUTH DAILY FOR GERD ferrous sulfate 325 mg (65 mg iron) tablet,delayed release (DR/EC) 325 mg PO Q OTHER DAY Rx Instructions: Take one tablet PO every other day. cholecalciferol (vitamin D3) 25 mcg (1,000 unit) capsule 25 mcg PO DAILY aspirin 325 mg tablet,delayed release (DR/EC) 325 mg PO DAILY Qty: 14 0RF Rx Instructions: Take with breakfast starting 03/06 for 2 weeks for DVT prophylaxis acetaminophen [Tylenol 8 Hour] 650 mg tablet extended release 650 mg PO Q8H PRN (Reason: pain) Qty: 30 0RF ibuprofen 600 mg tablet 600 mg PO Q6H PRN (Reason: pain (scale score 4-6)) Qty: 40 0RF Referrals Follow up/Referrals: Chilango Landeros APRN [Primary Care Provider] - See instructions Instructions Patient Instructions: DI for Acute Abdominal Pain Discharge ED Provider: Jak Gutierrez General Adult HPI General Chief complaint: Abdominal Pain Stated complaint: abd pain Time Seen by Provider: 09/16/22 18:49 Mode of Arrival: Ambulatory Source of Information: Patient Limitations: No Limitations Description of Symptoms (Recalled from ER Triage Doc. by RN): pt complains of ruq pain that radiates into epigastric and complains of n/v/d. pt states her v/d is black in color. History of Present Illness HPI narrative: Patient is a 27-year-old female with no significant past medical history presents emergency department for evaluation of multiple complaints. Patient states that she had epigastric abdominal pain that began approximately 1 AM. It is since migrated to her right upper and right lower quadrant. Patient has had dark-colored vomitus and diarrhea a few episodes over the last 24 hours. Patient has Nexplanon, last menstrual period within the last month. There is associated dysuria. She also complains that the epigastric pain radiates up into her lower chest. States that she feels warm however is not measured her temperature. No other acute complaints at this time. Related Data Home Medications Medication Instructions Recorded Confirmed cholecalciferol (vitamin D3) 25 25 mcg PO DAILY Supplement 03/03/22 06/25/22 mcg (1,000 unit) capsule ferrous sulfate 325 mg (65 mg 325 mg PO Q OTHER DAY Supplement 03/03/22 06/25/22 iron) tablet,delayed release omeprazole 20 mg capsule,delayed 20 mg PO DAILY Reflux/Acid re
[2022-09-16 19:02] LABS: Microscopic, Urine URINE MICROSCOPIC (MICROSCOPIC)
[2022-09-16 19:11] LABS: Chloride 100 mmol/L (98-107); Potassium 4.4 mmoL/L (3.5-5.1); Sodium 140 mmol/L (136-145)
[2022-09-16 19:13] LABS: Alanine Aminotransferase 26 U/L (12-78); Appearance,Urine CLEAR (Clear); Aspartate Amino Transferase 39 U/L (14-36); Bilirubin,Urine Negative (Negative); Blood Urea Nitrogen 8 mg/dl (7-17); Blood, Urine Negative (Negative); Color,Urine YELLOW (Yellow); Creatinine Clearance Estimated 176 mL/min (50-200); Estimated Glomerular Filt Rate 120 ml/min (>60); GFR (African American) 145 ML/MIN (>60); Glucose,Urine (UA) Negative (Negative); Ketones,Urine Negative (Negative); Lactic Acid 1.9 mmol/L (0.7-2.1); Leukocyte Esterase,Urine 1+ (Negative); Nitrate,Urine Negative (Negative); PH,Urine 7.5 (5.0-8.5); Protein,Urine Negative (Negative); Urobilinogen,Urine 0.2 EU/dl (0.2)
--- NOTE | 2022-09-16 19:13 | PC.NURSE ---
Rounded on pt. PT advised she is very nauseous. Will notify .
[2022-09-16 19:14] LABS: Albumin Level 4.7 g/dl (3.5-5.0); Albumin/Globulin Ratio 1.2 (1.1-1.8); Alkaline Phosphatase 83 U/L (38-126); Anion Gap 17.4 mEq/L (5-15); Basophils # 0.1 K/mm3 (0-0.2); Basophils % 0.5 % (0.1-2.0); Bilirubin,Total 0.4 mg/dl (0.2-1.3); Calcium 10.3 mg/dl (8.4-10.2); Carbon Dioxide 27 mmol/L (22.0-30.0); Eosinophils # 0.2 K/mm3 (0.0-0.4); Eosinophils % 1.5 % (0.1-12.0); Globulin 3.9 g/dL (1.3-3.2); Glucose 99 mg/dl (74-100); Hematocrit 46.4 % (37.0-47.0); Hemoglobin 14.6 g/dL (12.2-16.2); Lipase 53 U/L (23-300); Lymphocytes # 2.4 K/mm3 (0.7-4.5); Lymphocytes % 20.5 % (10-50); Mean Corpuscular HGB Conc 31.4 g/dL (31.8-35.4); Mean Corpuscular Hemoglobin 25.2 pg (27.0-31.2); Mean Corpuscular Volume 80.4 fl (81-99); Mean Platelet Volume 8.6 fl (7.4-10.4); Monocytes # 0.6 K/mm3 (0.1-1.0); Monocytes % 4.8 % (1.7-9.3); Neutrophils # 8.4 K/mm3 (1.8-7.8); Neutrophils % 72.6 % (37.0-80.0); Platelet Count 286 K/mm3 (142-424); Red Blood Count 5.77 M/mm3 (4.20-5.40); Red Cell Distribution Width 15.2 % (11.5-17.5); Total Protein,Serum 8.6 g/dl (6.3-8.2); White Blood Count 11.5 K/mm3 (4.8-10.8)
[2022-09-16 19:15] LABS: HCG Qualitative, Serum Negative (Negative)
--- NOTE | 2022-09-16 19:26 | PC.NURSE ---
Pt gone to RAD via wheelchair
[2022-09-16 19:33] LABS: WBC,Urine Occasional #/hpf (0-3)
--- NOTE | 2022-09-16 19:33 | PC.NURSE ---
PT returned from RAD
[2022-09-16 19:34] LABS: Bacteria,Urine Trace /lpf
[2022-09-16 19:35] LABS: Troponin I < 0.01 ng/ml (0.00-0.034)
--- NOTE | 2022-09-16 21:18 | PC.NURSE ---
Pt ambulatory to bathroom. No needs voiced at this time.
--- NOTE | 2022-09-16 22:02 | PC.NURSE ---
Dr. Gutierrez at BS
--- NOTE | 2022-09-16 22:03 | PC.NURSE ---
rounded on patient, patient given soft drink
== END 2022-09-16 22:12 | disposition home or self-care (01) ==
PROVIDERS: Emergency Provider Emergency Medicine; PCP Nurse Practitioner Family
DX: R10.11 Right upper quadrant pain (principal); R10.13 Epigastric pain; R10.31 Right lower quadrant pain; R19.7 Diarrhea, unspecified; J45.909 Unspecified asthma, uncomplicated; F41.1 Generalized anxiety disorder
CPT/HCPCS: 74177; 80053; 81001; 83605; 83690; 84484; 84703; 85025; 87086; 93005; 96361; 96374; 96375; 99285; J0131; J2405; Q9967

== ENCOUNTER → 2022-10-07 14:56 | Outpatient (CLI) | payer MEDICAID, SELFPAY ==
[2022-10-09 09:23] LABS: HCV Ab Non Reactive (Non Reactive); HIV Screen 4th Generation wRfx Non Reactive (Non Reactive); HSV 1 IgG, Type Spec <0.91 index (0.00-0.90); HSV 2 IgG, Type Spec <0.91 index (0.00-0.90)
[2022-10-09 11:50] LABS: Rapid Plasma Reagin Ab Titer Non Reactive (NonRea<1:1)
== END ==
PROVIDERS: PCP Nurse Practitioner Family; Visit Provider Obstetrics & Gynecology
DX: Z72.51 High risk heterosexual behavior (principal); Z11.4 Encounter for screening for human immunodeficiency virus [HIV]
CPT/HCPCS: 36415; 86593; 86695; 86703; 86790; G0432

== ENCOUNTER → 2022-11-05 09:45 | Outpatient (CLI) | payer MEDICAID, SELFPAY ==
[2022-11-05 09:50] LABS: MANUAL DIFFERENTIAL MANUAL DIFFERENTIAL (MANUAL DIFF)
--- NOTE | 2022-11-05 09:55 | ECG_ITS ---
APPROVED REPORT Exam: Resting ECG HR:74 bpm ECG Measurements Heart Rate 74 AXES ND 160 P 63 QRSd 89 QRS 53 QT 375 T 50 QTc 402 Conclusion SINUS RHYTHM POSSIBLE LEFT ATRIAL ENLARGEMENT [-0.1mV P-WAVE IN V1/V2] BORDERLINE ECG UNCONFIRMED REPORT Electronically signed by : Maulik Vu MD 11/05/2022 12:06:39
--- NOTE | 2022-11-05 09:55 | XR_ITS ---
FINAL REPORT CLINICAL HISTORY: left knee sx COMPARISON: None FINDINGS: PA and lateral views of the chest are obtained. There is no prior exam for comparison. The cardiac and mediastinal silhouettes are within normal limits. The lungs are clear. There is no pleural effusion, pneumothorax, or acute osseous abnormality. IMPRESSION: No radiographic evidence of acute cardiac or pulmonary disease. Reviewed, Interpreted and Dictated by Bibiana Zelaya MD Transcribed by Rosetta Cavazos Authenticated and . [facility]
[2022-11-05 10:20] LABS: Basophils # 0.1 K/mm3 (0-0.2); Basophils % 0.6 % (0.1-2.0); Eosinophils # 0.3 K/mm3 (0.0-0.4); Hematocrit 42.1 % (37.0-47.0); Hemoglobin 13.4 g/dL (12.2-16.2); Lymphocytes % 31.3 % (10-50); Mean Corpuscular HGB Conc 31.8 g/dL (31.8-35.4); Mean Corpuscular Hemoglobin 25.3 pg (27.0-31.2); Mean Corpuscular Volume 79.8 fl (81-99); Mean Platelet Volume 8.8 fl (7.4-10.4); Monocytes # 0.4 K/mm3 (0.1-1.0); Monocytes % 4.1 % (1.7-9.3); Neutrophils # 5.9 K/mm3 (1.8-7.8); Neutrophils % 60.9 % (37.0-80.0); Platelet Count 259 K/mm3 (142-424); Red Blood Count 5.27 M/mm3 (4.20-5.40); Red Cell Distribution Width 15.1 % (11.5-17.5); White Blood Count 9.7 K/mm3 (4.8-10.8)
[2022-11-05 11:47] LABS: Alanine Aminotransferase 21 U/L (12-78); Albumin/Globulin Ratio 1.2 (1.1-1.8); Alkaline Phosphatase 65 U/L (38-126); Anion Gap 14.4 mEq/L (5-15); Aspartate Amino Transferase 22 U/L (14-36); Blood Urea Nitrogen 10 mg/dl (7-17); Calcium 9.3 mg/dl (8.4-10.2); Carbon Dioxide 27 mmol/L (22.0-30.0); Chloride 103 mmol/L (98-107); Estimated Glomerular Filt Rate 120 ml/min (>60); GFR (African American) 145 ML/MIN (>60); Globulin 3.3 g/dL (1.3-3.2); Glucose 163 mg/dl (74-100); Potassium 4.4 mmoL/L (3.5-5.1); Sodium 140 mmol/L (136-145); Total Protein,Serum 7.3 g/dl (6.3-8.2)
[2022-11-05 11:54] LABS: Bilirubin,Total < 0.1 mg/dl (0.2-1.3)
[2022-11-05 15:42] LABS: Eosinophils % 1 % (0-3); Hypochromasia 1+; Lymphocytes % 40 % (10-50); Monocytes % 1 % (2-9); Neutrophils % 58 % (42-76); Platelet Estimate Normal; Total Cells Counted 100
== END ==
PROVIDERS: PCP Nurse Practitioner Family; Visit Provider Orthopaedic Surgery
DX: S83.232D Complex tear of medial meniscus, current injury, left knee, subsequent encounter (principal); Y99.9 Unspecified external cause status; Z01.818 Encounter for other preprocedural examination
CPT/HCPCS: 36415; 71046; 80053; 85007; 85014; 85018; 85048; 85049; 93005

== ENCOUNTER 2022-11-16 12:04 | Day surgery (SDC) | payer MEDICAID, SELFPAY ==
[2022-11-15 13:55] VITALS: BMI 25.4
[2022-11-16] VITALS (10 sets, daily range): BP systolic 86–138; BP diastolic 35–82; PULSE 62–92; RESP 16; TEMP 36.3–36.6; O2SAT 95–98
[2022-11-16 12:26] LABS: Urine Pregnancy, HCG Qual. Negative (Negative)
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
--- NOTE | 2022-11-16 15:28 | EXP.OP.NOTE ---
Date of procedure: 11/16/22 Pre-op Diagnosis:: Left knee medial meniscus tear Post-op Diagnosis:: Left knee lateral meniscus tear, anterior synovitis and patella chondromalacia Procedure performed:: Left knee arthroscopy with partial lateral meniscectomy, anterior synovectomy and patellar chondroplasty Surgeon:: Oliverio Yang MD Seo Strategist(s):: None PRIVATE SECTOR EXECUTIVE:: Other Anesthesia: GETA and local Estimated blood loss (mL): 5 Clinical Note:: Caren is a pleasant 27-year-old female with left knee pain consistent with possible medial meniscus tear as seen on MRI. Recovering well after a right knee scope with partial lateral meniscectomy in February. A left knee cortisone injection in June did not help and she has done physical therapy for both knees. We discussed all the risks, benefits and alternatives to left knee arthroscopy for possible partial medial meniscectomy, synovectomy and chondroplasty as needed and she agreed to proceed. Surgical consent form signed. Operative findings:: Left knee medial meniscus was intact. The body of the lateral meniscus did have some complex tearing inner edge of the body. There was some grade II chondromalacia central aspect of the trochlea and anterior synovitis with an inflamed ligamentum. Operative note:: The patient was seen in the preoperative holding area. The left knee was marked to confirm the correct operative site. She was seen by anesthesia. She received Ancef 2 g IV prophylactic antibiotics within 1 hour of incision time. She was brought back to the OR. General anesthesia induced that difficulty. Left lower extremity prepped and draped in usual sterile fashion. Timeout performed to confirm left knee arthroscopy and patient Chilango program. I made an anterolateral viewing portal with an 11 blade scalpel. Arthroscope was introduced into the knee joint. I then made an anteromedial portal localizing this with a spinal needle. This incision was made with an 11 blade and dilated with a trocar. Diagnostic arthroscopy commenced. She was seen to have some grade II chondromalacia central aspect of the patella with fraying. No full-thickness cartilage loss. This was treated with a shaver removing the unstable chondral flaps back to a smooth stable border. Trochlea cartilage was intact. Evaluation of the medial compartment revealed the medial meniscus was intact upon careful evaluation with a probe. No tear was seen undersurface of the body as was the concern on MRI. Medial compartment cartilage intact. Cruciate ligaments were seen to be intact but there was an inflamed ligamentum and anterior synovitis. This was treated with the 3.5 mm shaver removing the inflamed ligamentum and performing an anterior synovectomy. She was placed in the [id number] position and we entered the lateral compartment. She did have some complex tearing and fraying of the inner third body of the lateral meniscus. This was treated with a straight biter and the shaver resecting out the inner third of the body of the lateral meniscus back to a smooth stable border with smooth transition to intact anterior and posterior horn of the lateral meniscus. At this time arthroscopy instruments were removed the joint. Arthroscopy fluid suctioned and drained from the joint. Portals closed with 4-0 Monocryl subcuticular sutures. We injected 20 cc of half percent Naropin from the superolateral approach for local anesthetic. Sterile dressing applied with Steri-Strips, 4 x 4's, ABD, soft roll and a 6 inch Chris bandage. Anesthesia reversed without difficulty and transferred to recovery in stable condition. All sponge needle counts correct x2. Postoperative plan: She will be discharged home from recovery Okay to weight-bear as tolerated with crutch assist as needed. Okay to remove the soft dressing in 3 days and keep her knee scope incisions covered when showering. Ice and elevate the left knee. Oxycodone prescribed to her pharmacy to take as needed for
--- NOTE | 2022-11-16 15:46 | P.PNANES_ITS ---
[facility] Anesthesia Record Part I Anesthesia Record I Intake, IV Amount: 700 Hydration: Adequate Estimated blood loss (mL): 5 Urine output (mL): 0 Blood Products used (#): none Blood Pressure: 96/64 SaO2: 95 Pulse Rate: 92 Airway Patency: Patent Respiratory Rate: 16 Temperature: 97.3 F Patient is:: Awake (Talking) and Stable Stable to PACU at:: 15:38
--- NOTE | 2022-11-17 08:14 | P.PNANES_ITS ---
[facility] Anesthesia Record Part II Anesthesia Record Part II Discharge Time: 15:58 Destination: Surgical Day Care (OP Surgery) PACU nurse assessment reviewed?: Yes Patient Condition:: Good Anesthesia Complications:: None Swallowing reflex intact?: Yes Airway Patency: Patent Cyanosis?: No Blood Pressure: 109/69 SaO2: 98 Respiratory Rate: 16 Pulse Rate: 64 Temperature: 97.3 F Mental Status: Alert & Oriented Pain level:: 10 Nausea and/or vomitting:: None Intake, IV Amount: 700 Hydration: Adequate
[2022-11-17 08:18] VITALS: BP 109/69; PULSE 64; RESP 16; TEMP 36.3; O2SAT 98
== END 2022-11-16 16:30 | disposition home or self-care (01) ==
PROVIDERS: PCP Nurse Practitioner Family; Visit Provider Orthopaedic Surgery
PROC: (CPT 29870; principal; 2022-11-16 13:45)
DX: S83.281A Other tear of lateral meniscus, current injury, right knee, initial encounter (principal); S83.8X2A Sprain of other specified parts of left knee, initial encounter; M22.42 Chondromalacia patellae, left knee; M25.562 Pain in left knee; Z79.899 Other long term (current) drug therapy
CPT/HCPCS: 29881; 29879; 29876; 81025; J2405

== ENCOUNTER 2022-11-22 18:43 | Emergency (ER) | payer MEDICAID, SELFPAY ==
[2022-11-22 18:44] VITALS: BP 111/83; PULSE 70; RESP 16; TEMP 36.4; O2SAT 100; BMI 25.7
--- NOTE | 2022-11-22 19:21 | XR_ITS ---
PROCEDURE INFORMATION: Exam: XR Left Knee Exam date and time: 11/22/2022 7:33 PM Age: 27 years old Clinical indication: Pain; Knee; Left; Prior surgery; Surgery date: 3-7 days post-operative; Surgery type: Meniscus; Additional info: Post op pain, R/O gas TECHNIQUE: Imaging protocol: Radiologic exam of the left knee. Views: 3 views. COMPARISON: CR XR KNEE LT 3V 08/21/2022 1:26 AM FINDINGS: Bones/joints: No fracture. No radiographic changes of osteomyelitis or septic joint. Normal alignment. Joint spaces are grossly well-maintained. Soft tissues: No soft tissue air or intra-articular air. No joint effusion. Other findings: No retained bodies. Minor stranding in Hoffa's fat space likely reflects recent arthroscopic surgery. IMPRESSION: 1. No acute findings. 2. Minor stranding in Hoffa's fat space likely reflects recent arthroscopic surgery. 3. No retained bodies. No soft tissue air or joint effusion.
[2022-11-22 19:43] LABS: Basophils # 0.1 K/mm3 (0-0.2); Basophils % 0.5 % (0.1-2.0); Eosinophils # 0.4 K/mm3 (0.0-0.4); Eosinophils % 3.7 % (0.1-12.0); Hematocrit 41.7 % (37.0-47.0); Hemoglobin 14.1 g/dL (12.2-16.2); Lymphocytes # 2.9 K/mm3 (0.7-4.5); Mean Corpuscular HGB Conc 33.8 g/dL (31.8-35.4); Mean Corpuscular Hemoglobin 27.3 pg (27.0-31.2); Mean Corpuscular Volume 80.7 fl (81-99); Mean Platelet Volume 8.9 fl (7.4-10.4); Monocytes # 0.4 K/mm3 (0.1-1.0); Monocytes % 3.9 % (1.7-9.3); Neutrophils # 7.3 K/mm3 (1.8-7.8); Neutrophils % 65.8 % (37.0-80.0); Platelet Count 275 K/mm3 (142-424); Red Blood Count 5.16 M/mm3 (4.20-5.40); Red Cell Distribution Width 14.8 % (11.5-17.5)
--- NOTE | 2022-11-22 19:55 | HMH.EDGENADL ---
Discharge Plan Disposition Patient Disposition: Home, Self-Care Prescriptions Prescriptions: No Action Ajovy Autoinjector 225 mg/1.5 mL auto-injector 225 mg SQ QMONTH Qty: 1.5 5RF Ubrelvy 100 mg tablet 100 mg PO ONCE PRN (Reason: migraine headache) Qty: 10 5RF Rx Instructions: Take 100 mg at onset of headache. May repeat after 2 hours if symptoms persist. Max dose 2 tablets in 24 hours. medroxyprogesterone [Depo-Provera] 150 mg/mL suspension 150 mg IM [id number] Qty: 1 4RF omeprazole 20 mg capsule,delayed release(DR/EC) 20 mg PO DAILY Rx Instructions: TAKE 1 CAPSULE BY MOUTH DAILY FOR GERD ferrous sulfate 325 mg (65 mg iron) tablet,delayed release (DR/EC) 325 mg PO Q OTHER DAY Rx Instructions: Take one tablet PO every other day. cholecalciferol (vitamin D3) 25 mcg (1,000 unit) capsule 25 mcg PO DAILY acetaminophen [Tylenol 8 Hour] 650 mg tablet extended release 650 mg PO Q8H PRN (Reason: pain) Qty: 30 0RF ibuprofen 600 mg tablet 600 mg PO Q6H PRN (Reason: pain (scale score 4-6)) Qty: 40 0RF fluticasone propionate 50 mcg/actuation spray,suspension 1 spray intranasal DAILY Rx Instructions: administer into each nostril aspirin 325 mg tablet 325 mg PO .QD Qty: 14 0RF Rx Instructions: Take w breakfast for 2 weeks starting 11/17 for DVT prophylaxis oxycodone 5 mg tablet 5 mg PO Q4H PRN (Reason: pain) Qty: 20 0RF ondansetron 4 mg tablet,disintegrating 4 mg PO Q8H 3 Days Qty: 9 0RF Referrals Follow up/Referrals: Chilango Landeros APRN [Primary Care Provider] - See instructions Activity Restrictions/Add. Instructions Additional Instructions/Restrictions: Call your family doctor to establish care for this visit to the emergency department and schedule follow-up within 48 hours to ensure improvement. If you have any worsening of your condition or any other concerning signs or symptoms, return to the emergency department or your primary care doctor for further evaluation. Take Tylenol 1000 mg every 6 hours (4 times daily) and ibuprofen 400 mg every 6 hours (4 times daily) as needed with food and water to prevent GI upset and kidney damage. Clinical Impressions Clinical Impression: Acute postoperative pain of left knee Discharge ED Provider: Bennett Pressley General Adult HPI General Chief complaint: Extremity Injury, Lower Stated complaint: post op 11/16, left knee numbness and pain Time Seen by Provider: 11/22/22 18:49 Mode of Arrival: Wheelchair Source of Information: Patient Limitations: No Limitations Description of Symptoms (Recalled from ER Triage Doc. by RN): pt states have meniscus repair on 11/16 and starting bear weight yesterday and began having burning and stabbing pain in lt knee. History of Present Illness HPI narrative: 27-year-old female with history of right knee injury status post operation presenting with left knee pain after operation. Patient had operation last week on 11/[address] Yang. Patient states that meniscus was repaired and inflammation was scraped out. Patient doing fine on 324 mg aspirin at home until started bearing weight 1 day prior to arrival. Today, started having worsening pain in her left knee. No swelling or injury, but because patient recently postop, called orthopedic emanations analysis technician and they recommended coming to the ER out of concern for possible blood clot or infection. No fevers or chills, nausea or vomiting, redness streaking up or down the leg, or any other concerns. Related Data Home Medications Medication Instructions Recorded Confirmed cholecalciferol (vitamin D3) 25 25 mcg PO DAILY Supplement 03/03/22 11/16/22 mcg (1,000 unit) capsule ferrous sulfate 325 mg (65 mg 325 mg PO Q OTHER DAY Supplement 03/03/22 11/16/22 iron) tablet,delayed release omeprazole 20 mg capsule,delayed 20 mg PO DAILY Reflux/Acid reflux 03/03/22 11/16/22 release fluticasone propionate 50 1 spray intranas
[2022-11-22 19:56] LABS: Alanine Aminotransferase 30 U/L (12-78); Albumin Level 4.5 g/dl (3.5-5.0); Albumin/Globulin Ratio 1.3 (1.1-1.8); Alkaline Phosphatase 60 U/L (38-126); Anion Gap 14.1 mEq/L (5-15); Aspartate Amino Transferase 32 U/L (14-36); Bilirubin,Total 0.2 mg/dl (0.2-1.3); Blood Urea Nitrogen 10 mg/dl (7-17); Calcium 9.3 mg/dl (8.4-10.2); Carbon Dioxide 26 mmol/L (22.0-30.0); Chloride 102 mmol/L (98-107); Creatinine Clearance Estimated 211 mL/min (50-200); Estimated Glomerular Filt Rate 148 ml/min (>60); GFR (African American) 179 ML/MIN (>60); Globulin 3.4 g/dL (1.3-3.2); Glucose 122 mg/dl (74-100); Potassium 4.1 mmoL/L (3.5-5.1); Sodium 138 mmol/L (136-145); Total Protein,Serum 7.9 g/dl (6.3-8.2)
[2022-11-22 20:01] LABS: C-Reactive Protein 2.4 mg/L (0-4)
[2022-11-22 20:10] LABS: Erythrocyte Sedimentation Rate 6 mm/hr (0-20)
[2022-11-22 20:43] VITALS: BP 112/65; PULSE 73; RESP 19; TEMP 36.8; O2SAT 98
== END 2022-11-22 20:56 | disposition home or self-care (01) ==
PROVIDERS: Emergency Provider Emergency Medicine; PCP Nurse Practitioner Family
DX: G89.18 Other acute postprocedural pain (principal); Z87.828 Personal history of other (healed) physical injury and trauma; K21.9 Gastro-esophageal reflux disease without esophagitis; G47.00 Insomnia, unspecified; J45.909 Unspecified asthma, uncomplicated; F41.1 Generalized anxiety disorder
CPT/HCPCS: 73562; 80053; 85025; 85378; 85651; 86140; 96374; 96375; 99284; J0131

== ENCOUNTER → 2022-12-23 23:15 | Outpatient (CLI) | payer MEDICAID, SELFPAY ==
[2022-12-28 08:36] LABS: Neisseria gonorrhoeae, NAA Negative (Negative)
== END ==
PROVIDERS: PCP Nurse Practitioner Family; Visit Provider Obstetrics & Gynecology
DX: Z30.9 Encounter for contraceptive management, unspecified (principal)
CPT/HCPCS: 87491; 87591

== ENCOUNTER 2023-02-22 19:31 | Emergency (ER) | payer MEDICAID, SELFPAY ==
--- NOTE | 2023-02-22 19:33 | ECG_ITS ---
APPROVED REPORT Exam: Resting ECG HR:72 bpm ECG Measurements Heart Rate 72 AXES UT 168 P 58 QRSd 91 QRS 50 QT 377 T 46 QTc 402 Conclusion SINUS RHYTHM NORMAL ECG INTERPRETATION BASED ON A DEFAULT AGE OF 40 YEARS UNCONFIRMED REPORT Electronically signed by : Maulik Vu MD 02/23/2023 08:36:25
[2023-02-22 19:37] VITALS: BP 110/79; PULSE 81; RESP 18; TEMP 37.2; O2SAT 98; BMI 26.6
[2023-02-22 19:43] VITALS: PULSE 72
--- NOTE | 2023-02-22 19:50 | XR_ITS ---
PROCEDURE INFORMATION: Exam: XR Chest Exam date and time: 02/22/2023 7:53 PM Age: 27 years old Clinical indication: Cough and fever; Additional info: Cough, fever TECHNIQUE: Imaging protocol: Radiologic exam of the chest. Views: 2 views. Total images: 2 COMPARISON: CR XR CHEST 2V 11/05/2022 10:00 AM FINDINGS: Tubes, catheters and devices: EKG leads are present. Lungs: Unremarkable. No consolidation. No pulmonary vascular congestion or edema. Pleural spaces: Unremarkable. No pleural effusion. No pneumothorax. Heart/Mediastinum: Unremarkable. No cardiomegaly. No mediastinal widening or hilar enlargement. Bones/joints: Unremarkable. Soft tissues: Breast attenuation artifact. IMPRESSION: No radiographically acute cardiopulmonary process.
--- NOTE | 2023-02-22 19:51 | PC.NURSE ---
ASA deferred by attending
[2023-02-22 20:00] VITALS: BP 107/72; PULSE 65; RESP 12; O2SAT 98
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
[2023-02-22 20:05] LABS: Potassium 3.3 mmoL/L (3.5-5.1); Sodium 137 mmol/L (136-145)
[2023-02-22 20:06] LABS: Basophils % 0.8 % (0.1-2.0); Eosinophils # 0.2 K/mm3 (0.0-0.4); Eosinophils % 3.7 % (0.1-12.0); Hematocrit 42.9 % (37.0-47.0); Hemoglobin 14.6 g/dL (12.2-16.2); Lymphocytes # 2.2 K/mm3 (0.7-4.5); Lymphocytes % 52.2 % (10-50); Mean Corpuscular HGB Conc 34.1 g/dL (31.8-35.4); Mean Corpuscular Hemoglobin 26.5 pg (27.0-31.2); Mean Corpuscular Volume 77.9 fl (81-99); Monocytes # 0.3 K/mm3 (0.1-1.0); Monocytes % 6.9 % (1.7-9.3); Neutrophils # 1.6 K/mm3 (1.8-7.8); Neutrophils % 36.4 % (37.0-80.0); Platelet Count 149 K/mm3 (142-424); Red Cell Distribution Width 14.6 % (11.5-17.5); White Blood Count 4.3 K/mm3 (4.8-10.8)
[2023-02-22] MEDS: 0.9 % SODIUM CHLORIDE 1000ML 1,000 ML 999 ML IV (20:06)
[2023-02-22] MEDS: DEXAMETHASONE 4MG/ML 1ML VIAL 10 MG IV (20:06)
[2023-02-22 20:07] LABS: Alanine Aminotransferase 28 U/L (12-78); Aspartate Amino Transferase 39 U/L (14-36); Blood Urea Nitrogen 6 mg/dl (7-17); Creatinine Clearance Estimated 156 mL/min (50-200); Estimated Glomerular Filt Rate 100 ml/min (>60); GFR (African American) 121 ML/MIN (>60)
[2023-02-22 20:08] LABS: Albumin Level 4.4 g/dl (3.5-5.0); Albumin/Globulin Ratio 1.4 (1.1-1.8); Alkaline Phosphatase 42 U/L (38-126); Bilirubin,Total 0.5 mg/dl (0.2-1.3); Calcium 8.5 mg/dl (8.4-10.2); Carbon Dioxide 32 mmol/L (22.0-30.0); Globulin 3.1 g/dL (1.3-3.2); Glucose 119 mg/dl (74-100); Lactic Acid 0.7 mmol/L (0.7-2.1); MANUAL DIFFERENTIAL MANUAL DIFFERENTIAL (MANUAL DIFF); Magnesium 2.3 mg/dl (1.6-2.3); Total Protein,Serum 7.5 g/dl (6.3-8.2)
[2023-02-22 20:11] LABS: Anion Gap 11.3 mEq/L (5-15); Chloride 97 mmol/L (98-107)
[2023-02-22] MEDS: ONDANSETRON 4MG/2ML VIAL 4 MG IV (20:15)
[2023-02-22] MEDS: POTASSIUM CHLORIDE 20MEQ TAB 40 MEQ PO (20:15)
[2023-02-22 20:23] LABS: Eosinophils % 4 % (0-3); Lymphocytes % 55 % (10-50); Monocytes % 5 % (2-9); Neutrophils % 34 % (42-76); Platelet Estimate Normal; Total Cells Counted 100
[2023-02-22 20:24] LABS: Microcytosis 1+
[2023-02-22 20:26] LABS: Troponin I < 0.01 ng/ml (0.00-0.034)
[2023-02-22 20:27] VITALS: PULSE 60; PULSE 72
[2023-02-22] MEDS: IPRATROPIUM/ALBUTEROL 3 ML NEB 6 ML IH (20:27)
[2023-02-22 20:30] VITALS: BP 112/66; PULSE 74; RESP 18; O2SAT 100
[2023-02-22 20:53] LABS: Microscopic, Urine URINE MICROSCOPIC (MICROSCOPIC)
[2023-02-22 20:59] LABS: Appearance,Urine CLEAR (Clear); Blood, Urine 2+ (Negative); Color,Urine YELLOW (Yellow); Glucose,Urine (UA) Negative (Negative); Ketones,Urine Negative (Negative); Leukocyte Esterase,Urine TRACE (Negative); Nitrate,Urine Negative (Negative); Protein,Urine Negative (Negative)
[2023-02-22 21:03] LABS: Bilirubin,Urine 1+ (Negative)
[2023-02-22] MEDS: CEFDINIR 300MG CAPSULE 300 MG PO (21:09)
[2023-02-22 21:13] LABS: Bacteria,Urine Trace /lpf; Mucus,Urine Trace /lpf; Squamous Epithelial Cell,Urine Occasional #/hpf (0-5); WBC,Urine Occasional #/hpf (0-3)
[2023-02-22 21:19] VITALS: BP 112/66; PULSE 75; RESP 18; TEMP 37.2; O2SAT 100
== END 2023-02-22 21:15 | disposition home or self-care (01) ==
PROVIDERS: Emergency Provider Emergency Medicine; PCP Nurse Practitioner Family
DX: N39.0 Urinary tract infection, site not specified (principal); E87.6 Hypokalemia; R11.0 Nausea; R50.9 Fever, unspecified; R05.9 Cough, unspecified; R07.0 Pain in throat; B34.9 Viral infection, unspecified; Z20.822 Contact with and (suspected) exposure to COVID-19; R31.9 Hematuria, unspecified
CPT/HCPCS: 71046; 80053; 81001; 83605; 83735; 84484; 85007; 85025; 93005; 96361; 96374; 96375; 99285; J2405

== ENCOUNTER 2023-05-11 09:27 | Outpatient (CLI) | payer MEDICAID, SELFPAY ==
--- NOTE | 2023-05-11 09:33 | XR_ITS ---
FINAL REPORT CLINICAL HISTORY: right knee pain for a couple weeks. FINDINGS: Right knee Three views were obtained. There is no acute fracture or dislocation. The joint spaces appear normal. No joint effusion is identified. No soft tissue abnormality is identified. IMPRESSION: No acute process. Reviewed, Interpreted and Dictated by Jose Stone III, MD Transcribed by Bianca Langford Authenticated and [facility]
== END 2023-05-11 23:59 ==
LOC: RAD 09:27
PROVIDERS: PCP Nurse Practitioner Family; Visit Provider Orthopaedic Surgery
DX: M25.561 Pain in right knee (principal)
CPT/HCPCS: 73562

== ENCOUNTER 2023-07-12 15:13 | Emergency (ER) | payer MEDICAID, SELFPAY ==
[2023-07-12 15:15] VITALS: BP 133/94; PULSE 86; RESP 18; TEMP 36.6; O2SAT 98; BMI 25.4
[2023-07-12 15:44] LABS: Chloride 104 mmol/L (98-107); Potassium 3.6 mmoL/L (3.5-5.1); Sodium 138 mmol/L (136-145)
[2023-07-12 15:47] LABS: Alanine Aminotransferase 37 U/L (12-78); Albumin Level 4.2 g/dl (3.5-5.0); Albumin/Globulin Ratio 1.3 (1.1-1.8); Alkaline Phosphatase 68 U/L (38-126); Anion Gap 10.6 mEq/L (5-15); Aspartate Amino Transferase 41 U/L (14-36); Bilirubin,Total 0.8 mg/dl (0.2-1.3); Blood Urea Nitrogen 9 mg/dl (7-17); Calcium 9.4 mg/dl (8.4-10.2); Carbon Dioxide 27 mmol/L (22.0-30.0); Creatinine Clearance Estimated 149 mL/min (50-200); Estimated Glomerular Filt Rate 100 ml/min (>60); GFR (African American) 121 ML/MIN (>60); Globulin 3.3 g/dL (1.3-3.2); Glucose 127 mg/dl (74-100); Lipase 62 U/L (23-300); Total Protein,Serum 7.5 g/dl (6.3-8.2)
[2023-07-12 15:48] LABS: Basophils # 0.1 K/mm3 (0-0.2); Basophils % 0.9 % (0.1-2.0); Eosinophils # 0.7 K/mm3 (0.0-0.4); Eosinophils % 5.9 % (0.1-12.0); Hematocrit 44.7 % (37.0-47.0); Hemoglobin 14.5 g/dL (12.2-16.2); Lymphocytes # 2.4 K/mm3 (0.7-4.5); Lymphocytes % 22.1 % (10-50); Mean Corpuscular HGB Conc 32.4 g/dL (31.8-35.4); Mean Corpuscular Hemoglobin 27.2 pg (27.0-31.2); Mean Corpuscular Volume 83.9 fl (81-99); Mean Platelet Volume 8.9 fl (7.4-10.4); Monocytes # 0.5 K/mm3 (0.1-1.0); Neutrophils # 7.4 K/mm3 (1.8-7.8); Neutrophils % 67.1 % (37.0-80.0); Platelet Count 255 K/mm3 (142-424); Red Blood Count 5.33 M/mm3 (4.20-5.40); Red Cell Distribution Width 15.7 % (11.5-17.5)
[2023-07-12] MEDS: ONDANSETRON 4MG/2ML VIAL 4 MG IV (15:51)
[2023-07-12] MEDS: LACTATED RINGERS 1000ML 1,000 ML 999 ML IV (15:51)
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
[2023-07-12 16:00] VITALS: BP 114/67; PULSE 69; RESP 17; O2SAT 99
[2023-07-12 16:04] LABS: Microscopic, Urine URINE MICROSCOPIC (MICROSCOPIC)
[2023-07-12 16:08] LABS: Appearance,Urine CLEAR (Clear); Blood, Urine Negative (Negative); Color,Urine DARK YELLOW (Yellow); Glucose,Urine (UA) TRACE (Negative); Ketones,Urine Negative (Negative); Leukocyte Esterase,Urine Negative (Negative); Nitrate,Urine Negative (Negative); Protein,Urine 1+ (Negative); Specific Gravity, Urine >= 1.030 (1.005-1.030)
[2023-07-12 16:11] LABS: Urine Pregnancy, HCG Qual. Negative (Negative)
--- NOTE | 2023-07-12 16:11 | PC.NURSE ---
pt given warm blanket and cup of ice, states ice chips ok at this time.
--- NOTE | 2023-07-12 16:11 | PC.NURSE ---
Pt was able to void approx 75ml, bladder scan obtained and < 2 ml. MD notified
[2023-07-12 16:12] LABS: Bilirubin,Urine 1+ (Negative)
[2023-07-12 16:15] LABS: Lactic Acid 1.2 mmol/L (0.7-2.1)
[2023-07-12 16:26] VITALS: BP 116/68; PULSE 68; RESP 17; TEMP 36.5; O2SAT 99
[2023-07-12 16:39] LABS: Bacteria,Urine 1+ /lpf; WBC,Urine Occasional #/hpf (0-3)
== END 2023-07-12 16:36 | disposition home or self-care (01) ==
PROVIDERS: Emergency Provider Emergency Medicine; PCP Nurse Practitioner Family
DX: R10.84 Generalized abdominal pain (principal); K52.9 Noninfective gastroenteritis and colitis, unspecified; R11.2 Nausea with vomiting, unspecified; R30.0 Dysuria
CPT/HCPCS: 80053; 81001; 81025; 83605; 83690; 85025; 96361; 96374; 99284; J2405; J7120

== ENCOUNTER 2023-10-12 19:07 | Outpatient (CLI) | payer MEDICAID, SELFPAY ==
[2023-10-12 18:13] LABS: Adenovirus,PCR Not Detected (NotDetected); Bordetella Pertussis Not Detected (NotDetected); Chlamydophila Pneumoniae, PCR Not Detected (NotDetected); Coronavirus 19, PCR Not Detected (NotDetected); Coronavirus 229E Not Detected (NotDetected); Coronavirus NL63 Not Detected (NotDetected); Coronavirus OC43 Not Detected (NotDetected); Coronovirus HKU1,PCR Not Detected (NotDetected); Human Metapneumovirus Not Detected (NotDetected); Influenza A, PCR Not Detected (NotDetected); Influenza AH1, 2009 Not Detected (NotDetected); Influenza AH1, PCR Not Detected (NotDetected); Influenza AH3,PCR Not Detected (NotDetected); Influenza B, PCR Not Detected (NotDetected); Mycoplasma Pneumoniae, PCR Not Detected (NotDetected); Parainfluenza 1, PCR Not Detected (NotDetected); Parainfluenza 2, PCR Not Detected (NotDetected); Parainfluenza 3, PCR Not Detected (NotDetected); Parainfluenza 4, PCR Not Detected (NotDetected); Respiratory Syncytial Virus Not Detected (NotDetected)
[2023-10-17 18:06] LABS: Rhinovirus/Enterovirus Detected (NotDetected)
== END 2023-10-12 23:59 | disposition home or self-care (01) ==
LOC: LAB.DROPOF 19:07
PROVIDERS: PCP Nurse Practitioner Family; Visit Provider Nurse Practitioner Family
DX: J02.9 Acute pharyngitis, unspecified (principal)
CPT/HCPCS: 87070; 87077; 87186; 87265; 87486; 87581; 87632; 87635

== ENCOUNTER 2023-11-09 13:38 | Outpatient (CLI) | payer MEDICAID, SELFPAY ==
--- NOTE | 2023-11-09 13:42 | XR_ITS ---
FINAL REPORT CLINICAL HISTORY: left knee pain COMPARISON: 11/22/2022 FINDINGS: LEFT KNEE Three views demonstrate no acute fracture or dislocation. The joint spaces appear normal. No acute soft tissue abnormality is seen. IMPRESSION: No acute bony abnormality. Reviewed, Interpreted and Dictated by Dany Craft MD Transcribed by Peyton Arauz Authenticated and [facility]
--- NOTE | 2023-11-09 13:42 | XR_ITS ---
FINAL REPORT CLINICAL HISTORY: right knee pain COMPARISON: 05/11/2023 FINDINGS: RIGHT KNEE Three views demonstrate no acute fracture or dislocation. The joint spaces appear normal. No acute soft tissue abnormality is seen. IMPRESSION: No acute bony abnormality. Reviewed, Interpreted and Dictated by Dany Craft MD Transcribed by Peyotn Arauz Authenticated and . [facility]
== END 2023-11-09 23:59 | disposition home or self-care (01) ==
LOC: RAD 13:39
PROVIDERS: PCP Nurse Practitioner Family; Visit Provider Physician Assistant
DX: M25.562 Pain in left knee (principal); M25.561 Pain in right knee
CPT/HCPCS: 73562

== ENCOUNTER 2023-11-28 13:30 | Emergency (ER) | payer MEDICAID, SELFPAY ==
[2023-11-28 13:55] VITALS: BP 125/82; PULSE 75; RESP 18; TEMP 36.9; O2SAT 99; BMI 25.4
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
--- NOTE | 2023-11-28 14:14 | CT_ITS ---
PROCEDURE INFORMATION: Exam: CT Abdomen And Pelvis With Contrast Exam date and time: 11/28/2023 3:30 PM Age: 28 years old Clinical indication: Abdominal pain; Additional info: Abdominal pain, dysuria TECHNIQUE: Imaging protocol: Computed tomography of the abdomen and pelvis with contrast. Radiation optimization: All CT scans at this facility use at least one of these dose optimization techniques: automated exposure control; mA and/or kV adjustment per patient size (includes targeted exams where dose is matched to clinical indication); or iterative reconstruction. Contrast material: ISOVUE; Contrast volume: 75 ml; Contrast route: IV; COMPARISON: CT ABDOMEN PELVIS W CON 09/16/2022 7:26 PM FINDINGS: Lungs: Left lower lobe granuloma noted. Liver: A focus of hypoattenuation within the left hepatic lobe adjacent to the falciform ligament likely represents focal fatty infiltration and/or perfusional changes. No focal hepatic lesions. Gallbladder and biliary ducts: Gallbladder is distended without radiopaque cholelithiasis. No biliary ductal dilation. Pancreas: No peripancreatic fluid stranding. No main pancreatic ductal dilation. Spleen: No splenomegaly. Adrenal glands: The adrenal glands are normal. Kidneys and ureters: Nephrograms are symmetric. No nephrolithiasis or hydroureteronephrosis on either side. No solid lesions Stomach and bowel: No bowel wall thickening or distention. Appendix: A normal appendix is identified. Intraperitoneal space: There is no evidence of free intraperitoneal or pelvic fluid. Trace pelvic free fluid likely physiologic Vasculature: Aorta is nonaneurysmal. Lymph nodes: No lymphadenopathy. Urinary bladder: Unremarkable as visualized. Reproductive: There is a 3.4 cm right adnexal lesion likely dominant follicle. Bones/joints: No acute osseous abnormality. Soft tissues: Unremarkable. IMPRESSION: No acute abnormality in the abdomen or pelvis
[2023-11-28] MEDS: ONDANSETRON 4MG/2ML VIAL 4 MG IV (14:24)
[2023-11-28] MEDS: ACETAMINOPHEN 1,000MG/100ML VIAL 1000 MG IV (14:24)
[2023-11-28] MEDS: KETOROLAC 30MG/ML VIAL 15 MG IV (14:24)
[2023-11-28 14:25] LABS: Basophils # 0.1 K/mm3 (0-0.2); Basophils % 0.8 % (0.1-2.0); Eosinophils # 0.4 K/mm3 (0.0-0.4); Eosinophils % 4.1 % (0.1-12.0); Hematocrit 37.6 % (37.0-47.0); Hemoglobin 12.6 g/dL (12.2-16.2); Lymphocytes # 2.6 K/mm3 (0.7-4.5); Lymphocytes % 26.4 % (10-50); Mean Corpuscular HGB Conc 33.4 g/dL (31.8-35.4); Mean Corpuscular Hemoglobin 27.2 pg (27.0-31.2); Mean Corpuscular Volume 81.5 fl (81-99); Mean Platelet Volume 7.7 fl (7.4-10.4); Monocytes # 0.5 K/mm3 (0.1-1.0); Monocytes % 4.5 % (1.7-9.3); Neutrophils # 6.4 K/mm3 (1.8-7.8); Neutrophils % 64.1 % (37.0-80.0); Platelet Count 222 K/mm3 (142-424); Red Blood Count 4.61 M/mm3 (4.20-5.40); Red Cell Distribution Width 15.4 % (11.5-17.5)
[2023-11-28 14:29] LABS: Alanine Aminotransferase 23 U/L (12-78); Albumin Level 4.2 g/dl (3.5-5.0); Albumin/Globulin Ratio 1.6 (1.1-1.8); Alkaline Phosphatase 68 U/L (38-126); Aspartate Amino Transferase 29 U/L (14-36); Bilirubin,Total 0.5 mg/dl (0.2-1.3); Blood Urea Nitrogen 13 mg/dl (7-17); Calcium 9.1 mg/dl (8.4-10.2); Carbon Dioxide 30 mmol/L (22.0-30.0); Chloride 106 mmol/L (98-107); Creatinine Clearance Estimated 172 mL/min (50-200); Estimated Glomerular Filt Rate 119 ml/min (>60); GFR (African American) 144 ML/MIN (>60); Globulin 2.7 g/dL (1.3-3.2); Glucose 89 mg/dl (74-100); Sodium 139 mmol/L (136-145); Total Protein,Serum 6.9 g/dl (6.3-8.2)
[2023-11-28 14:36] LABS: Microscopic, Urine URINE MICROSCOPIC (MICROSCOPIC)
[2023-11-28 14:56] LABS: Urine Pregnancy, HCG Qual. Negative (Negative)
--- NOTE | 2023-11-28 15:24 | PC.NURSE ---
pt to ct
[2023-11-28] MEDS: SODIUM CHLORIDE 0.9% 10ML SYR (RAD ONLY) 10 ML IV (15:33)
[2023-11-28] MEDS: IOPAMIDOL-370 (76%);100ML BOTTLE 75 ML IV (15:33)
[2023-11-28 15:35] LABS: Anion Gap 7.1 mEq/L (5-15); Potassium 4.1 mmoL/L (3.5-5.1)
--- NOTE | 2023-11-28 15:37 | US_ITS ---
PROCEDURE INFORMATION: Exam: US Pelvis, Transvaginal, Non-Obstetric Exam date and time: 11/28/2023 4:27 PM Age: 28 years old Clinical indication: Abnormal findings; Abnormal imaging test; Additional info: Rlq abd pain, R flank pain, right adnexal mass TECHNIQUE: Imaging protocol: Real-time transvaginal pelvic (non-obstetric) ultrasound with image documentation. Transvaginal imaging was used for better evaluation of the endometrium, adnexa, and/or cervix. COMPARISON: CT ABDOMEN PELVIS W CON 11/28/2023 3:30 PM FINDINGS: Uterus: Endometrial echo complex measures 2.1 mm. The uterus measures 8.2 x 3.7 x 4.8 cm. There is a focal cystic lesion probably localized adenomyosis. No solid myometrial lesions. Right ovary/adnexa: Right ovary measures 4.6 3.2 5.1 cm (40 mL). There is a 3.4 cm lesion that correlates with prior CT abdomen and pelvis. Low frequency echogenicities less like appearance favors hemorrhagic cyst versus endometrioma. There is normal arterial inflow and venous outflow. Left ovary/adnexa: Left ovary measures 2.3 x 1.6 x 1.8 cm (4 mL). Ovarian stroma is unremarkable. There is normal arterial inflow and venous outflow. Urinary bladder: Urinary bladder is limited. Intraperitoneal space: Small amount of free fluid. IMPRESSION: 3.4 cm right adnexal lesion. Considerations include hemorrhagic ovarian follicle versus endometrioma. No sonographic evidence of ovarian torsion.
[2023-11-28] MEDS: MORPHINE 2MG/ML SYRINGE 2 MG IV (15:38)
--- NOTE | 2023-11-28 15:42 | PC.NURSE ---
Notified radiology of transvaginal US order
[2023-11-28 16:04] LABS: Appearance,Urine CLEAR (Clear); Bilirubin,Urine Negative (Negative); Blood, Urine 1+ (Negative); Color,Urine YELLOW (Yellow); Glucose,Urine (UA) Negative (Negative); Ketones,Urine Negative (Negative); Leukocyte Esterase,Urine Negative (Negative); Nitrate,Urine Negative (Negative); PH,Urine 6.5 (5.0-8.5); Protein,Urine Negative (Negative); Specific Gravity, Urine 1.025 (1.005-1.030); Urobilinogen,Urine 0.2 EU/dl (0.2)
[2023-11-28 16:40] LABS: Bacteria,Urine Trace /lpf
--- NOTE | 2023-11-28 16:41 | PC.NURSE ---
pt returned from ultrasound
[2023-11-28 16:56] LABS: HIV (1&2) Antibody Rapid NONREACTIVE (NONREACTIVE)
[2023-11-28 17:34] VITALS: BP 120/80; PULSE 70; RESP 16; TEMP 36.9; O2SAT 98
[2023-11-29 05:16] LABS: HCV Ab Non Reactive (Non Reactive)
== END 2023-11-28 17:36 | disposition home or self-care (01) ==
PROVIDERS: Physician Assistant; Student in an Organized Health Care Education/Training Program; Emergency Provider Emergency Medicine; PCP Nurse Practitioner Family
DX: R31.9 Hematuria, unspecified (principal); R10.9 Unspecified abdominal pain; N83.201 Unspecified ovarian cyst, right side; R30.0 Dysuria
CPT/HCPCS: 74177; 76830; 80053; 81001; 81025; 85025; 86803; 87389; 96374; 96375; 99285; J0131; J1885; J2270; J2405; Q9967

== ENCOUNTER 2023-12-02 09:47 | Outpatient (CLI) | payer MEDICAID, SELFPAY ==
--- NOTE | 2023-12-02 09:47 | MR_ITS ---
PROCEDURE INFORMATION: Exam: MR Left Lower Extremity Joint Without Contrast, Knee Exam date and time: 12/02/2023 9:55 AM Age: 28 years old Clinical indication: Pain; Knee; Left; Additional info: Left knee pain. Prior knee surgery on meniscus 1 year ago. Medial sided knee pain TECHNIQUE: Imaging protocol: Magnetic resonance imaging of the left lower extremity joint without contrast. Exam focused on the knee. COMPARISON: MR KNEE LT WO CON 07/21/2021 9:09 AM FINDINGS: Bones/joints: Unremarkable. No bone abnormalities. Articular cartilage is normal. No joint effusion. Medial meniscus: There is mild irregularity of the body of the medial meniscus, not significantly changed from 2022 study. Normal volume and morphology. Lateral meniscus: Lateral meniscus is unremarkable. Anterior cruciate ligament: Unremarkable. No tear. Posterior cruciate ligament: Unremarkable. No tear. Medial capsule and supporting structures: Unremarkable. No tear. Lateral capsule and supporting structures: Unremarkable. No tear. Extensor mechanism of knee: Unremarkable. No tear. Soft tissues: Unremarkable. IMPRESSION: Mild irregularity in the body of the medial meniscus is similar to 2022 study. Of note, patient has undergone surgical repair of a meniscus in the interim. No distinct adverse interval change.
== END 2023-12-02 23:59 | disposition home or self-care (01) ==
LOC: RAD 09:47
PROVIDERS: PCP Nurse Practitioner Family; Visit Provider Physician Assistant
DX: M23.92 Unspecified internal derangement of left knee (principal)
CPT/HCPCS: 73721

== ENCOUNTER 2024-04-02 17:28 | Emergency (ER) | payer MEDICAID, SELFPAY ==
[2024-04-02 17:51] VITALS: BP 127/92; PULSE 77; RESP 18; TEMP 36.9; O2SAT 100; BMI 25.4
[2024-04-02 21:17] VITALS: BP 000/000; PULSE 0; RESP 0; TEMP -17.7; TEMP 0; O2SAT 0
== END 2024-04-02 21:18 | disposition left against medical advice (07) ==
LOC: ER 18:09
PROVIDERS: Emergency Provider Emergency Medicine; PCP Nurse Practitioner Family
DX: Z53.21 Procedure and treatment not carried out due to patient leaving prior to being seen by health care provider (principal)

== ENCOUNTER 2024-04-15 11:39 | Emergency (ER) | payer MEDICAID, SELFPAY ==
[2024-04-15] VITALS (9 sets, daily range): BP systolic 110–138; BP diastolic 81–91; PULSE 73–82; RESP 16–20; TEMP 36.6–36.7; O2SAT 99–100; BMI 27.0
--- NOTE | 2024-04-15 11:46 | ECG_ITS ---
APPROVED REPORT Exam: Resting ECG HR:76 bpm ECG Measurements Heart Rate 76 AXES AK 163 P 64 QRSd 89 QRS 76 QT 402 T 79 QTc 432 Conclusion SINUS RHYTHM POSSIBLE LEFT ATRIAL ENLARGEMENT [-0.1mV P-WAVE IN V1/V2] Electronically signed by : SHAHZAD MERRILL, 04/15/2024 15:03:54
[2024-04-15 12:12] LABS: Basophils % 0.5 % (0.1-2.0); Eosinophils # 0.2 K/mm3 (0.0-0.4); Eosinophils % 2.4 % (0.1-12.0); Hematocrit 37.9 % (37.0-47.0); Hemoglobin 12.5 g/dL (12.2-16.2); Lymphocytes # 2.4 K/mm3 (0.7-4.5); Lymphocytes % 29.4 % (10-50); Mean Corpuscular Hemoglobin 26.7 pg (27.0-31.2); Mean Corpuscular Volume 80.8 fl (81-99); Mean Platelet Volume 10.6 fl (7.4-10.4); Monocytes # 0.6 K/mm3 (0.1-1.0); Monocytes % 6.8 % (1.7-9.3); Neutrophils # 4.9 K/mm3 (1.8-7.8); Neutrophils % 60.8 % (37.0-80.0); Platelet Count 270 K/mm3 (142-424); Red Blood Count 4.69 M/mm3 (4.20-5.40); Red Cell Distribution Width 14.2 % (11.5-17.5); White Blood Count 8.1 K/mm3 (4.8-10.8)
[2024-04-15 12:26] LABS: Albumin Level 5.2 g/dl (3.5-5.0); Chloride 104 mmol/L (98-107); Potassium 4.1 mmoL/L (3.5-5.1); Sodium 137 mmol/L (136-145)
[2024-04-15 12:29] LABS: Alanine Aminotransferase 36 U/L (12-78); Albumin/Globulin Ratio 1.8 (1.1-1.8); Alkaline Phosphatase 64 U/L (38-126); Anion Gap 12.1 mEq/L (5-15); Aspartate Amino Transferase 41 U/L (14-36); Bilirubin,Total 1.1 mg/dl (0.2-1.3); Blood Urea Nitrogen 11 mg/dl (7-17); Carbon Dioxide 25 mmol/L (22.0-30.0); Creatinine Clearance Estimated 183 mL/min (50-200); Estimated Glomerular Filt Rate 119 ml/min (>60); GFR (African American) 144 ML/MIN (>60); Globulin 2.9 g/dL (1.3-3.2); Total Protein,Serum 8.1 g/dl (6.3-8.2)
[2024-04-15 12:30] LABS: Calcium 9.6 mg/dl (8.4-10.2); Glucose 106 mg/dl (74-100)
[2024-04-15 12:43] LABS: Troponin I < 0.01 ng/ml (0.00-0.034)
--- NOTE | 2024-04-15 14:09 | CT_ITS ---
PROCEDURE INFORMATION: Exam: CTA Neck With Contrast Exam date and time: 04/15/2024 1:44 PM Age: 28 years old Clinical indication: Dizziness and giddiness; Additional info: Dizziness L sided numbness/tingling TECHNIQUE: Imaging protocol: Computed tomographic angiography of the neck with contrast. Exam focused on the cervical segments of the vasculature. 3D rendering (Not supervised by radiologist): MIP and/or 3D reconstructed images were created by the technologist. Radiation optimization: All CT scans at this facility use at least one of these dose optimization techniques: automated exposure control; mA and/or kV adjustment per patient size (includes targeted exams where dose is matched to clinical indication); or iterative reconstruction. Contrast material: ISOVUE; Contrast volume: 80 ml; Contrast route: INTRAVENOUS (IV); COMPARISON: CT CERVICAL SPINE WO CON 08/21/2022 1:28 AM FINDINGS: Right common carotid artery: No stenosis. No dissection or occlusion. Right internal carotid artery: No stenosis of the extracranial segment. No dissection or occlusion. Right external carotid artery: No occlusion or stenosis of the origin. Left common carotid artery: No stenosis. No dissection or occlusion. Left internal carotid artery: No stenosis of the extracranial segment. No dissection or occlusion. Left external carotid artery: No occlusion or stenosis of the origin. Right vertebral artery: No stenosis. No dissection or occlusion. Left vertebral artery: No stenosis. No dissection or occlusion. Paranasal sinuses: Air-fluid level within the right maxillary sinus. Scattered opacification of the ethmoidal air cells. Soft tissues: Normal. No significant soft tissue swelling. Bones/joints: No acute fracture. IMPRESSION: 1. No acute vascular findings. 2. Findings which can be seen in sinusitis. REFERENCES: NASCET CRITERIA. The degree of stenosis in the cervical segment of the internal carotid artery is based on NASCET criteria. Normal is no stenosis. Mild is less than 50% stenosis. Moderate is 50-69% stenosis. Severe is 70% to 99% stenosis. Total occlusion is no detectable patent lumen.
--- NOTE | 2024-04-15 14:09 | CT_ITS ---
PROCEDURE INFORMATION: Exam: CTA Chest With Contrast Exam date and time: 04/15/2024 1:47 PM Age: 28 years old Clinical indication: Pain; Chest pressure; Additional info: Chest pain, recent covid, dizziness TECHNIQUE: Imaging protocol: Computed tomographic angiography of the chest with contrast. Exam focused on the arteries. 3D rendering (Not supervised by radiologist): MIP and/or 3D reconstructed images were created by the technologist. Radiation optimization: All CT scans at this facility use at least one of these dose optimization techniques: automated exposure control; mA and/or kV adjustment per patient size (includes targeted exams where dose is matched to clinical indication); or iterative reconstruction. Contrast material: ISOVUE; Contrast volume: 70 ml; Contrast route: INTRAVENOUS (IV); COMPARISON: CR XR CHEST 2V 02/22/2023 7:53 PM FINDINGS: Pulmonary arteries: Normal. No pulmonary emboli. Aorta: Unremarkable. No aortic aneurysm. No aortic dissection. Lungs: Scattered pulmonary mosaicism. Round nodule with central calcifications indicative of a pulmonary hamartoma seen in the left lower lobe, measuring about 10.3 x 9.6 mm (series 5, image 85). Pleural spaces: Unremarkable. No pneumothorax. No pleural effusion. Heart: Unremarkable. No cardiomegaly. No pericardial effusion. Lymph nodes: Unremarkable. No enlarged lymph nodes. Kidneys: Benign attenuating hypodense cysts within the upper right renal pole with a punctate layering posterior calcification which could represent calyceal diverticulum versus a benign cyst with focal calcification. Bones/joints: Unremarkable. No acute fracture. Soft tissues: Unremarkable. IMPRESSION: 1. No pulmonary embolus. 2. Findings of which can be seen in atypical infections, edema, hypoventilatory change, small airway disease. Correlate clinically. 3. 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 COMMENTS: Consistent with the [employer]'s Incidental Findings Committee white paper (J Am Anne Marie Radiol 2018): Any incidental renal lesion less than 1 cm or classified as too small to characterize, or any incidental cystic renal lesion characterized as simple-appearing, is likely benign. No follow-up imaging is recommended for these lesions per consensus recommendations based on imaging criteria.
--- NOTE | 2024-04-15 14:09 | CT_ITS ---
PROCEDURE INFORMATION: Exam: CT Head Without Contrast Exam date and time: 04/15/2024 1:42 PM Age: 28 years old Clinical indication: Dizziness; Additional info: Dizziness L sided numbness/tingling TECHNIQUE: Imaging protocol: Computed tomography of the head without contrast. Radiation optimization: All CT scans at this facility use at least one of these dose optimization techniques: automated exposure control; mA and/or kV adjustment per patient size (includes targeted exams where dose is matched to clinical indication); or iterative reconstruction. COMPARISON: CT HEAD/BRAIN WO CON 21/08/2022 01:26 FINDINGS: Brain: Normal. No hemorrhage. Unremarkable white matter. No mass effect. Cerebral ventricles: No ventriculomegaly. Paranasal sinuses: Scattered mucosal thickening and fluid in the visualized paranasal sinuses. Mastoid air cells: Visualized mastoid air cells are well aerated. Bones: Unremarkable. No acute fracture. Soft tissues: Unremarkable. IMPRESSION: 1. No acute intracranial abnormality. 2. Scattered mucosal thickening and fluid in the visualized paranasal sinuses.
--- NOTE | 2024-04-15 14:09 | CT_ITS ---
PROCEDURE INFORMATION: Exam: CTA Head With Contrast, Arteriography Exam date and time: 04/15/2024 1:44 PM Age: 28 years old Clinical indication: Dizziness and giddiness; Additional info: Dizziness L sided numbness/tingling TECHNIQUE: Imaging protocol: Computed tomographic angiography of the head with contrast. Exam focused on the arteries. 3D rendering (Not supervised by radiologist): MIP and/or 3D reconstructed images were created by the technologist. Radiation optimization: All CT scans at this facility use at least one of these dose optimization techniques: automated exposure control; mA and/or kV adjustment per patient size (includes targeted exams where dose is matched to clinical indication); or iterative reconstruction. Contrast material: ISOVUE; Contrast volume: 80 ml; Contrast route: INTRAVENOUS (IV); COMPARISON: CT HEAD/BRAIN WO CON 04/15/2024 1:42 PM FINDINGS: ANTERIOR CIRCULATION: Right internal carotid artery: Intracranial segment is patent with no significant stenosis. No aneurysm. Right middle cerebral artery: No occlusion or significant stenosis. No aneurysm. Right anterior cerebral artery: No occlusion or significant stenosis. No aneurysm. Left internal carotid artery: Intracranial segment is patent with no significant stenosis. No aneurysm. Left middle cerebral artery: No occlusion or significant stenosis. No aneurysm. Left anterior cerebral artery: No occlusion or significant stenosis. No aneurysm. POSTERIOR CIRCULATION: Right vertebral artery: No occlusion or significant stenosis. No aneurysm. Left vertebral artery: No occlusion or significant stenosis. No aneurysm. Basilar artery: No occlusion or significant stenosis. No aneurysm. Right posterior cerebral artery: No occlusion or significant stenosis. No aneurysm. Left posterior cerebral artery: No occlusion or significant stenosis. No aneurysm. Brain: No definite mass, mass effect, or midline shift. Cerebral ventricles: No ventriculomegaly. Paranasal sinuses: Debris and air-fluid levels seen in the right maxillary sinus. Scattered ethmoidal air cell opacification. Bones/joints: Unremarkable. No acute fracture. Soft tissues: Unremarkable. IMPRESSION: 1. No acute vascular or intracranial findings. 2. Findings suggestive of sinusitis. Correlate clinically.
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
[2024-04-15 14:31] LABS: HCG Qualitative, Serum Negative (Negative)
[2024-04-15] MEDS: SODIUM CHLORIDE 0.9% 10ML SYR (RAD ONLY) 10 ML IV (14:45)
[2024-04-15] MEDS: IOPAMIDOL-370 (76%);100ML BOTTLE 150 ML IV (14:45)
[2024-04-15] MEDS: 0.9 % SODIUM CHLORIDE 50 ML VIAL 100 ML IV (14:45)
--- NOTE | 2024-04-15 15:25 | PC.NURSE ---
repeat trop sent
[2024-04-15] MEDS: ACETAMINOPHEN 1,000MG/100ML VIAL 1000 MG IV (15:29)
[2024-04-15 16:33] LABS: Troponin I < 0.01 ng/ml (0.00-0.034)
== END 2024-04-15 17:24 | disposition home or self-care (01) ==
PROVIDERS: Emergency Provider Emergency Medicine; PCP Nurse Practitioner Family
DX: J01.90 Acute sinusitis, unspecified (principal); R51.9 Headache, unspecified; R07.89 Other chest pain; R42 Dizziness and giddiness; R11.0 Nausea; R05.9 Cough, unspecified; R20.2 Paresthesia of skin
CPT/HCPCS: 70450; 70496; 70498; 71275; 80053; 84484; 84703; 85025; 93005; 96374; 99285; J0131; Q9967

== ENCOUNTER 2024-04-25 11:27 | Outpatient (CLI) | payer MEDICAID, SELFPAY | END 2024-04-25 23:59 | disposition home or self-care (01) | LOC: RT 11:28 | PROVIDERS: PCP Nurse Practitioner Family; Visit Provider Family Medicine | DX: R00.2 Palpitations (principal); R00.0 Tachycardia, unspecified; R42 Dizziness and giddiness | CPT/HCPCS: 93270 ==

== ENCOUNTER 2024-05-17 11:08 | Emergency (ER) | payer MEDICAID, SELFPAY ==
[2024-05-17 11:10] VITALS: BP 124/73; PULSE 66; O2SAT 97
[2024-05-17 11:14] VITALS: BP 123/73; PULSE 67; RESP 16; TEMP 37.1; O2SAT 97; BMI 22.9
[2024-05-17 11:28] LABS: Microscopic, Urine URINE MICROSCOPIC (MICROSCOPIC)
[2024-05-17 11:29] LABS: Basophils % 0.3 % (0.1-2.0); Eosinophils # 0.3 K/mm3 (0.0-0.4); Eosinophils % 3.3 % (0.1-12.0); Hematocrit 34.8 % (37.0-47.0); Hemoglobin 11.5 g/dL (12.2-16.2); Lymphocytes # 2.6 K/mm3 (0.7-4.5); Lymphocytes % 28.3 % (10-50); Mean Corpuscular Hemoglobin 26.7 pg (27.0-31.2); Mean Corpuscular Volume 80.7 fl (81-99); Mean Platelet Volume 10.6 fl (7.4-10.4); Monocytes # 0.5 K/mm3 (0.1-1.0); Monocytes % 5.8 % (1.7-9.3); Neutrophils # 5.7 K/mm3 (1.8-7.8); Neutrophils % 62.1 % (37.0-80.0); Nucleated Red Blood Cells # 0 10^3/uL; Nucleated Red Blood Cells % 0 %; Platelet Count 271 K/mm3 (142-424); Red Blood Count 4.31 M/mm3 (4.20-5.40); Red Cell Distribution Width-SD 38.2 fL; White Blood Count 9.2 K/mm3 (4.8-10.8)
--- NOTE | 2024-05-17 11:38 | CT_ITS ---
FINAL REPORT TECHNIQUE: IV contrast enhanced exam. Coronal and sagittal images were obtained and reviewed. This study was performed with techniques to keep radiation doses as low as reasonably achievable, (ALARA). Individualized dose reduction techniques using automated exposure control or adjustment of mA and/or kV according to the patient''s size were employed. CLINICAL HISTORY: L flank pain diarrhea prev stones COMPARISON: 09/16/2022 FINDINGS: Abdomen: No acute density is seen within the lung bases. Upper pole right renal scarring is noted with right renal cyst, unchanged. No obvious renal stone disease. The solid organs are otherwise unremarkable. The gallbladder is contracted. No bowel obstruction is present. There is no free air. No fluid collection is seen. There is no adenopathy. Pelvis: The appendix is normal. No bowel wall thickening is present. The uterus and ovaries are unremarkable. There is no free fluid. No pelvic mass is seen. IMPRESSION: No acute findings. Reviewed, Interpreted and Dictated by Micah Mancuso MD Transcribed by Mariela Smith Authenticated and [facility]
--- NOTE | 2024-05-17 11:38 | XR_ITS ---
FINAL REPORT CLINICAL HISTORY: Nonspecific chest pain COMPARISON: 02/23/2023 FINDINGS: No acute pulmonary opacity is present. There is no evidence of effusion or pneumothorax. Mediastinum is unremarkable. Heart size is normal. IMPRESSION: No acute abnormality. Reviewed, Interpreted and Dictated by Micah Mancuso MD Transcribed by Mariela Smith Authenticated and [facility]
[2024-05-17 11:43] LABS: Appearance,Urine CLEAR (Clear); Bilirubin,Urine Negative (Negative); Blood, Urine Negative (Negative); Color,Urine YELLOW (Yellow); Glucose,Urine (UA) Negative (Negative); Ketones,Urine Negative (Negative); Leukocyte Esterase,Urine Negative (Negative); Nitrate,Urine Negative (Negative); PH,Urine 6.5 (5.0-8.5); Protein,Urine Negative (Negative); Specific Gravity, Urine 1.025 (1.005-1.030); Urobilinogen,Urine 0.2 EU/dl (0.2)
[2024-05-17 11:45] LABS: Urine Pregnancy, HCG Qual. Negative (Negative)
[2024-05-17 11:45] LABS: Alanine Aminotransferase 27 U/L (12-78); Albumin Level 4.1 g/dl (3.5-5.0); Albumin/Globulin Ratio 1.3 (1.1-1.8); Alkaline Phosphatase 65 U/L (38-126); Anion Gap 15.9 mEq/L (5-15); Aspartate Amino Transferase 32 U/L (14-36); Bilirubin,Total 0.4 mg/dl (0.2-1.3); Blood Urea Nitrogen 13 mg/dl (7-17); Calcium 8.6 mg/dl (8.4-10.2); Carbon Dioxide 23 mmol/L (22.0-30.0); Chloride 106 mmol/L (98-107); Creatinine Clearance Estimated 192 mL/min (50-200); Estimated Glomerular Filt Rate 147 ml/min (>60); GFR (African American) 178 ML/MIN (>60); Globulin 3.1 g/dL (1.3-3.2); Glucose 122 mg/dl (74-100); Potassium 3.9 mmoL/L (3.5-5.1); Sodium 141 mmol/L (136-145); Total Protein,Serum 7.2 g/dl (6.3-8.2)
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
--- NOTE | 2024-05-17 11:47 | ECG_ITS ---
APPROVED REPORT Exam: Resting ECG HR:63 bpm ECG Measurements Heart Rate 63 AXES MI 170 P 54 QRSd 90 QRS 46 QT 428 T 39 QTc 435 Conclusion SINUS RHYTHM WITH SINUS ARRHYTHMIA POSSIBLE LEFT ATRIAL ENLARGEMENT [-0.1mV P-WAVE IN V1/V2] BORDERLINE ECG Electronically signed by : JAMAL MORRISON, 05/18/2024 07:37:11
[2024-05-17] MEDS: IOPAMIDOL-370 (76%);100ML BOTTLE 75 ML IV (11:59)
[2024-05-17] MEDS: SODIUM CHLORIDE 0.9% 10ML SYR (RAD ONLY) 10 ML IV (11:59)
[2024-05-17 12:02] LABS: Lipase 80 U/L (23-300)
[2024-05-17] MEDS: ONDANSETRON 4MG/2ML VIAL 4 MG IV (12:04)
[2024-05-17] MEDS: ACETAMINOPHEN 1,000MG/100ML VIAL 1000 MG IV (12:04)
[2024-05-17] MEDS: KETOROLAC 30MG/ML VIAL 30 MG IV (12:04)
[2024-05-17 12:06] VITALS: BP 122/87; PULSE 70; O2SAT 100
[2024-05-17 12:08] LABS: D-Dimer 0.32 ug/mL (0.0-0.5)
[2024-05-17 12:21] LABS: Troponin I < 0.01 ng/ml (0.00-0.034)
[2024-05-17 12:30] VITALS: BP 110/70; PULSE 61; O2SAT 99
[2024-05-17 12:30] LABS: Hyaline Casts,Urine OCC #/lpf (0); Squamous Epithelial Cell,Urine Occasional #/hpf (0-5)
[2024-05-17 12:45] VITALS: BP 112/72; PULSE 64; O2SAT 99
--- NOTE | 2024-05-17 12:59 | PC.NURSE ---
DR MORRISON AT BEDSIDE
[2024-05-17 13:06] VITALS: BP 112/72; PULSE 79; RESP 15; TEMP 37.1; O2SAT 99
== END 2024-05-17 13:07 | disposition home or self-care (01) ==
PROVIDERS: Emergency Provider Emergency Medicine; PCP Nurse Practitioner Family
DX: R07.89 Other chest pain (principal); R10.32 Left lower quadrant pain; M54.59 Other low back pain
CPT/HCPCS: 96374; 96375; 99285; 71045; 74177; 80053; 81001; 81025; 83690; 84484; 85025; 85378; 93005; J0131; J1885; J2405; Q9967

== ENCOUNTER 2024-10-29 13:24 | Outpatient (CLI) | payer MEDICAID, SELFPAY ==
[2024-10-29 15:02] LABS: Coronavirus 19, PCR Not Detected (NotDetected); Influenza A, PCR Not Detected (NotDetected); Influenza B, PCR Not Detected (NotDetected)
--- OUTSIDE RECORDS SUMMARY | 2024-10-30 14:45 | XMS_ITS | Encounter Summary ---
Author Organization [employer] ([place], [place], [place], [place]) Address [address] [place] [address] Care Team Providers Care Concrete Mixer Loader Truck Mounted Name Role Phone Unavailable Primary Care Provider Unavailabl e Encounter Details Date Type Department Care Team (Late st Contact Info) Description 11/06/2018 Transcribed Document [facility] [place] Family Medicine [facility] [place] [address] ProviderTyler MD [address] [place], [place] [phone] Social History Tobacco Use Types Packs/Day Years [...] On: 11/06/2018 18:20 EDT by MIKE TOWNSEND, cloth finishing range operator chief Process Patient Disposition : AMA/Elope/LWBS MIKE TOWNSEND [...]
--- OUTSIDE RECORDS SUMMARY | 2024-10-30 14:45 | XMS_ITS | Clinical Summary ---
Author Organization [employer] ([place], [place], [place], [place]) Address [address] [place] [address] Care Team Providers Care Manufacturing Business Analyst Name Role Phone Unavailable Primary Care Provider [...]
--- OUTSIDE RECORDS SUMMARY | 2024-10-30 14:45 | XMS_ITS | Clinical Summary ---
Author Organization Healthcare Address [address] [place] [id number] Care Team Providers Care Rag Room Supervisor Name Role Phone Chilango Landeros BISMARK Primary [...] Visit Obstetrics & Gynecology [address] [place] [address] Trey Stiles MD [address] [place] [address] Health Maintenance Due Date Last Done Comments [facility]-/Child/Adol SDOH Screenings 1995 [facility]-Varicella Vaccines (2 of 2 - 2-dose childhood series) 1999 09/14/1996 [facility]- SDOH Screenings 09/14/2013 [facility]-Adult SDOH Screenings 09/14/2013 [facility]-Pap Smear 09/14/2016 [facility]-Depression Screening 08/26/2022 08/26/2021 [id number] Vaccine ( season) 2024 [facility]-Influenza Vaccine (#1) [...] ORDERABLES Final Resul t Performing Organization Address City/[facility] Co de Phone Number SUNQUEST * [place] Hepatitis C Antibody (10/21/2019 4:59 PM EDT) [place] Hepatitis C Ab NEGATIVE Reference Range: Negative SUNQUEST 10/21/2019 4:59 PM EDT 10/21/2019 5:06 PM EDT Vicki Rosenthal MD LAB BLOOD ORDERABLES Final Re sult SUNQUEST from Last 3 Months or Most Recently Relevant to Health Maintenance Insurance [facility] MEDICAID Care Teams Rag Room Supervisor Relationship Specialty Start Date End Date Chilango Landeros APRN [address] [place] [id number] PCP - General 06/20/20
--- OUTSIDE RECORDS SUMMARY | 2024-10-30 14:45 | XMS_ITS | Encounter Summary ---
Author Organization [employer] ([place], [place], [place], [place]) Address [address] [place] [address] Care Team Providers Care Pattern Painter Name Role Phone Unavailable Primary Care Provider Unavailabl e Encounter Details Date Type Department Care Team (Late st Contact Info) Description 11/06/2018 Transcribed Document [facility] [place] Family Medicine [facility] [place] [address] ProviderTyler MD [address] [place] [phone] Social History Tobacco Use Types Packs/Day Years [...] On: 11/06/2018 13:38 EDT by MIKE TOWNSEND PATENT SEARCHER Triage Across the Room Triage Date/Time : 11/06/2018 13:38 EDT Chief Complaint : pt having abd pain with abn bleeding , states LMP was 2 wks ago , MIKE TOWNSEND RN - 11/06/2018 13:38 EDT DCP GENERIC CODE Tracking Acuity : 3 - Urgent Tracking Group : [facility] ED MIKE TOWNSEND RN - [...] Recent Thoughts of Harming/Killing Others : No Funeral Director/Embalmer/Owner Needed : No MIKE TOWNSEND RN - [...] PNED ; Probability: 0 ; Diagnosis Code: [id number] Vaginal bleeding Date: 11/06/2018 ; Diagnosis Type: Reason For Visit ; Confirmation: Complaint of ; Clinical Dx: Vaginal bleeding ; Classification: Medical ; Clinical Service: Emergency medicine ; Code: PNED ; Probability: 0 ; Diagnosis Code: [id number] ED Height and Weight Height Source : Stated Height Entry Format : [place] Height, Feet : 5 ft(Converted to: 152 cm, 60 Inch) Height, Inches : 9 Inch(Converted to: 0 ft 9 Inch, 22.86 cm) Clinical Height : 175.26 cm Weight Source, ED : Critical estimated dosing weight Weight Entry Format : [place] Weight, Pounds : 180 lb Clinical Dosing Weight : 81.82 kg Body Surface Area (BSA) : 1.98 m2 Body Mass Index : 26.6 kg/m2 (HI) [place] Body Weight (IBW) : 65.73 kg MIKE [...]
--- OUTSIDE RECORDS SUMMARY | 2024-10-30 14:45 | XMS_ITS | Encounter Summary ---
Author Organization [employer] ([place], [place], [place], [place]) Address [address] [place] [address] Care Team Providers Care Mold Shifter Name Role Phone Unavailable Primary Care Provider Unavailabl e Encounter Details Date Type Department Care Team (Late st Contact Info) Description 11/06/2018 Transcribed Document [facility] [facility] [place] [address] ProviderTyler MD [address], [place] [phone] Social History Tobacco Use Types Packs/Day Years [...] On: 11/06/2018 15:59 EDT by MIKE TOWNSEND, SEAT SCOOPER MACHINE Event Note ED Event Date/Time : 02/07/2018 15:59 EST ED Description of Event : pt NIL at 1559, called at 1615 and 1630 also MIKE TOWNSEND RN - 11/06/2018 18:20 EDT Electronically signed by [facility] Conversion Mold Filler Cerner at 05/24/2022 12:47 PM CDT documented in this encounter Plan of Treatment Not on file documented as of this encounter Visit Diagnoses Not on filedocumented in this encounter
--- OUTSIDE RECORDS SUMMARY | 2024-10-30 14:45 | XMS_ITS | Clinical Summary ---
Author Organization [facility] Address [address] [place] [address] Care Team Providers Care Acetylene Operator Name Role Phone Berry Noriega MD Primary Care Provider [phone] Allergies No known active allergies Medications omeprazole (priLOSEC) 20 MG capsule Take 20 mg by mouth Daily. 1 Active Lancets (OneTouch Delica Plus [id number]) misc See Admin Instructions. 1 Active OneTouch [...] 2 1 Active Insulin Pen Needle (Pen [place]) 31G X 5 MM miscIndications :Gestational diabetes [...] 9:37 AM 04/14/2017 7:16 PM Care Teams Acetylene Operator Relationship Specialty Start Date End Date Berry Noriega MD [address] [place] [phone] PCP - General Family Medicine 04/11/17
--- OUTSIDE RECORDS SUMMARY | 2024-10-30 14:45 | XMS_ITS | Referral Summary ---
Author Organization [employer] ([place], [place], [place], [place]) Address [address] [place] [address] Care Team Providers Care Actuarial Analyst Name Role Phone Unavailable Primary Care [...]
== END 2024-10-29 23:59 | disposition home or self-care (01) ==
LOC: LAB.DROPOF 10-30 14:43
PROVIDERS: PCP Nurse Practitioner; Visit Provider Nurse Practitioner
DX: J06.9 Acute upper respiratory infection, unspecified (principal)
CPT/HCPCS: 87631

== ENCOUNTER 2024-10-30 10:06 | Outpatient (CLI) | payer MEDICAID, SELFPAY ==
--- OUTSIDE RECORDS SUMMARY | 2023-10-14 08:30 | XMS_ITS ---
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 Vivitrol inj. * Medical History: Objective: * Vitals: Assessment: Plan: * Treatment: * Images: Billing Information: * Visit Code: * Procedure Codes: * Electronic signature of Terell Ramachandran APRN on 10/30/2024 at 10:19 AM EDT Sign off status: Pending Visit Status: C ANC (Cancelled) * Provider: Taylor Ramachandran APRN Date: 0 10/14/2023 Generated for Lawrence burch/Yuliet/eTpandasmitting on: 10/30/2024 10:19 AM EDT
--- OUTSIDE RECORDS SUMMARY | 2024-10-30 10:19 | XMS_ITS | Encounter Summary ---
Author Organization [employer] ([place], [place], [place], [place]) Address [address] [place] [address] Care Team Providers Care Release And Technical Records Clerk Name Role Phone Unavailable Primary Care Provider Unavailabl e Encounter Details Date Type Department Care Team (Late st Contact Info) Description 11/06/2018 Transcribed Document [facility] Family Medicine [facility] [place] [address] ProviderTyler MD [address] [place], [place] [id number] Social History Tobacco Use Types Packs/Day Years Used Date Smoking Tobacco: Never Assessed Comments Unknown Sex and Gender Information Value Date Recorded Sex Assigned at Female 08/06/2021 3:43 PM CDT Legal Sex Female 6:11 PM CDT Gender Identity Female 08/06/2021 3:43 PM CDT Sexual Orientation Not on file documented as of this encounter Miscellaneous Notes * Cerner Conversion Note - Historical ProviderMD - 11/06/2018 3:59 PM CDT ED Event Note Entered On: 11/06/2018 18:20 EDT Performed On: 11/06/2018 15:59 EDT by MIKE TOWNSEND, TIE MAKER Event Note ED Event Date/Time : 02/07/2018 15:59 EST ED Description of Event : pt NIL at 1559, called at 1615 and 1630 also MIKE TOWNSEND RN - 11/06/2018 18:20 EDT Electronically signed by Loretta [facility] Conversion Trust Manager Cerner at 05/24/2022 12:47 PM CDT documented in this encounter Plan of Treatment Not on file documented as of this encounter Visit Diagnoses Not on filedocumented in this encounter
--- OUTSIDE RECORDS SUMMARY | 2024-10-30 10:19 | XMS_ITS | Patient Health Record ---
Author Organization [facility] [place] Address [address] [place] [address] Care Team Providers Care Cheese Pancake Roller Name Role Phone La Ramachandran Primary Care Provider [phone] Reason For Referral No Information Plan Of Treatment No Information Insurance Providers Payer Name Payer Address Payer Phone Subscriber Number Group Number Insured Name Patient Relationship to Insured Coverage Start Date Coverage End Date [id number] [facility] [address] [address] [place] [address] [id number] Caren Luna Self - patient is the insured 4
--- OUTSIDE RECORDS SUMMARY | 2024-10-30 10:19 | XMS_ITS | Encounter Summary ---
Author Organization [employer] ([place], [place], [place], [place]) Address [address] [place] [address] Care Team Providers Care Local Area Network Administrator Name Role Phone Unavailable Primary Care Provider Unavailabl e Encounter Details Date Type Department Care Team (Late st Contact Info) Description 11/06/2018 Transcribed Document [facility] [place] [facility] [place] [address] ProviderTyler MD [address] [place] [phone] Social History Tobacco Use Types Packs/Day Years Used Date Smoking Tobacco: Never Assessed Comments Unknown Sex and Gender Information Value Date Recorded Sex Assigned at Female 08/06/2021 3:43 PM CDT Legal Sex Female 6:11 PM CDT Gender Identity Female 08/06/2021 3:43 PM CDT Sexual Orientation Not on file documented as of this encounter Miscellaneous Notes * Cerner Conversion Note - Tyler ProviderMD - 11/06/2018 1:23 PM CDT ED Triage Entered On: 11/06/2018 13:41 EDT Performed On: 11/06/2018 13:38 EDT by MIKE TOWNSEND WET PROCESS ASSISTANT HEAD MILLER Triage Across the Room Triage Date/Time : 11/06/2018 13:38 EDT Chief Complaint : pt having abd pain with abn bleeding , states LMP was 2 wks ago , MIKE TOWNSEND RN - 11/06/2018 13:38 EDT DCP GENERIC CODE Tracking Acuity : 3 - Urgent Tracking Group : [facility] ED MIKE TOWNSEND RN - 11/06/2018 13:38 EDT Mode of Arrival : Ambulatory Transported to ED by : Law Enforcement To Room Via : Ambulate Accompanied By : Friend ED Vital Signs : Document Height & Weight : Document ED Allergies : Document ED Reason for Visit : Document Tetanus Immunization : Less than 5 years Tried to Harm Yourself in the Past? : No Thoughts of Harming/Killing Yourself : No Recent Thoughts of Harming/Killing Others : No Business Analytics Intern Needed : No MIKE TOWNSEND RN - 11/06/2018 13:38 EDT Infectious Disease History Infectious Disease History : Chicken pox/Shingles Fever/Chills Last 48 Hours : No Travel To Regions with Travel Advisories : No Travel Outside [place] Within Last 30 Days : No Contact With Traveler to Advisory Region : No Tuberculosis Symptoms : None MIKE TOWNSEND RN - 11/06/2018 13:38 EDT Vital Signs ED Temperature Source : Oral Temperature Mode : Fahrenheit Temperature, Fahrenheit : 98.4 Deg F ED Pain : Yes Clinical Temperature, C : 36.9 Deg C Oxygen Therapy Mode : Room air Peripheral Pulse Rate : 68 bpm Respiratory Rate : 18 Breaths/Min Systolic Blood Pressure : 122 mmHg Diastolic Blood Pressure : 90 mmHg Oxygen Saturation : 100 % MIKE TOWNSEND RN - 11/06/2018 13:38 EDT Allergy (As Of: 11/06/2018 13:41:30 EDT) Allergies (Active) No Known Allergies Estimated Onset Date: Unspecified ; Created By: Manuela Lockwood RN; Reaction Status: Active ; Category: Drug ; Substance: No Known Allergies ; Type: Allergy ; Updated By: Manuela Lockwood RN; Reviewed Date: 11/06/2018 13:40 EDT No Known Medication Allergies Estimated Onset Date: Unspecified ; Created By: GERMAIN COLLIER RN; Reaction Status: Active ; Category: Drug ; Substance: No Known Medication Allergies ; Type: Allergy ; Updated By: GERMAIN COLLIER RN; Reviewed Date: 11/06/2018 13:40 EDT Diagnosis Control ED (As Of: 11/06/2018 13:41:30 EDT) Diagnoses(Active) Abdominal pain Date: 11/06/2018 ; Diagnosis Type: Reason For Visit ; Confirmation: Complaint of ; Clinical Dx: Abdominal pain ; Classification: Medical ; Clinical Service: Emergency medicine ; Code: PNED ; Probability: 0 ; Diagnosis Code: [id number] Vaginal bleeding Date: 11/06/2018 ; Diagnosis Type: Reason For Visit ; Confirmation: Complaint of ; Clinical Dx: Vaginal bleeding ; Classification: Medical ; Clinical Service: Emergency medicine ; Code: PNED ; Probability: 0 ; Diagnosis Code: [id number] ED Height and Weight Height Source : Stated Height Entry Format : [place] Height, Feet : 5 ft(Converted to: 152 cm, 60 Inch) Height, Inches : 9 Inch(Converted to: 0 ft 9 Inch, 22.86 cm) Clinical Height : 175.26 cm Weight Source, ED : Critical estimated dosing weight Weight Entry Format : [place] Weight, Pounds : 180 lb Clinical Dosing Weight : 81.82 kg Body Surface Area (BSA) : 1.98 m2 Body Mass Index : 26.6 kg/m2 (HI) [place] Body Weight (IBW) : 65.73 kg MIKE TOWNSEND RN - 11/06/2018 13:38 EDT Pain Assessment Pain Assessment : Initial assessment Pain Scale Used : 0-10 Scale Location : Abdominal MIKE TOWNSEND RN - 11/06/2018 13:38 EDT Pain Scale Intensity : 8 MIKE TOWNSEND RN - 11/06/2018 13:38 EDT Image 4 - Images currently included in the form version of this document have not been included in the text rendition version of the form. documented in this encounter Plan of Treatment Not on file documented as of this encounter Visit Diagnoses Not on filedocumented in this encounter
--- OUTSIDE RECORDS SUMMARY | 2024-10-30 10:19 | XMS_ITS | Referral Summary ---
Author Organization [employer] ([place], [place], [place], [place]) Address [address] [place] [address] Care Team Providers Care Scada Operator Name Role Phone Unavailable Primary Care Provider Unavailabl e Social History Tobacco Use Types Packs/Day Years Used Date Smoking Tobacco: Never Assessed Comments Unknown Sex and Gender Information Value Date Recorded Sex Assigned at Female 08/06/2021 3:43 PM CDT Legal Sex Female 6:11 PM CDT Gender Identity Female 08/06/2021 3:43 PM CDT Sexual Orientation Not on file Plan of Treatment Not on file
--- OUTSIDE RECORDS SUMMARY | 2024-10-30 10:19 | XMS_ITS | Clinical Summary ---
Author Organization Healthcare Address [address] [place] [id number] Care Team Providers Care Human Services Worker Name Role Phone Chilango Landeros BISMARK Primary Care Provider Allergies No known active allergies Medications Ajovy 225 MG/1.5ML solution auto-injector INJECT 1.5 MLS SUBCUTANEOUS EVERY MONTH. FIRST INJECTION TO BE GIVEN IN CLINIC FOR EDUCATION/TRAINI NG PURPOSE 07/08/19 22 Active omeprazole (PriLOSEC) [address] capsule TAKE 1 CAPSULE BY MOUTH DAILY FOR GERD 01/17/20 21 Active Ubrelvy 100 MG tablet 07/28/19 22 Active ondansetron ODT (Zofran-ODT) 4 MG disintegrating tablet DISSOLVE 1 TABLET ON THE TONGUE EVERY 8 HOURS NEEDED FOR NAUSEA 04/15/19 22 Active Family History Medical History Relation Name Comments Meningitis Father Cardiac disorder Mother Conversions - Other Other 1 Rubio-va n Creveld syndrome Stroke Other 2 Kidney disease Other 3 Heart attack Other 4 Epilepsy Sister Relation Name Status Comments Father Mother Other 1 Other 2 Other 3 Other 4 Sister Social History Tobacco Use Types Packs/Day Years Used Date Smoking Tobacco: Never Assessed PHQ-2 Answer Date Recorded Patient Health Questionnaire-2 Score 0 08/26/2021 Comments Unknown Sex and Gender Information Value Date Recorded Sex Assigned at Not on file Legal Sex Female 6:49 PM EDT Gender Identity Not on file Sexual Orientation Not on file Last Filed Vital Signs Vital Sign Reading Time Taken Comments Blood Pressure 114/81 10/07/2021 7:42 AM EDT Pulse 86 08/26/2021 12:48 PM EDT Temperature - - Respiratory Rate - - Oxygen Saturation 100% 08/26/2021 12:48 PM EDT Inhaled Oxygen Concentration - - Weight 84.8 kg (187 lb) 10/07/2021 7:42 AM EDT Height 175.3 cm (5' 9 ) 10/07/2021 7:42 AM EDT Body Mass Index 27.62 10/07/2021 7:42 AM EDT Plan of Treatment Upcoming Encounters Date Type Department Care Team (Late st Contact Info) Description 11/08/2024 10:30 AM EDT Office Visit Obstetrics & Gynecology [address] [place] [address] Trey Stiles MD [address] [place] [address] Health Maintenance Due Date Last Done Comments [facility]-/Child/Adol SDOH Screenings 1995 [facility]-Varicella Vaccines (2 of 2 - 2-dose childhood series) 1999 09/14/1996 [facility]- SDOH Screenings 09/14/2013 [facility]-Adult SDOH Screenings 09/14/2013 [facility]-Pap Smear 09/14/2016 [facility]-Depression Screening 08/26/2022 08/26/2021 [id number] Vaccine ( season) 2024 [facility]-Influenza Vaccine (#1) 2024 [facility]-DTaP,Tdap,and Td Vaccines (9 - Td or Tdap) 01/06/2032 01/05/2022, 02/04/2015, 10/12/2007, Additional history exists [facility]-Zoster Vaccines (1 of 2) 09/14/2045 09/14/1996 [facility]-Hepatitis B Vaccines Completed 997, 1995, 1995 [facility]-HIB Vaccines Completed 01/10/1997, 12/1996, 03/20/1996, Additional history exists [facility]-IPV Vaccines Completed 10/15/1999, 12/1996, 01/18/1996, Additional history exists [facility]-Pneumococcal Vaccine: Pediatrics (0 to 5 Years) and At-Risk Patients (6 to 49 Years) Aged Out 06/07/2000 No longer eligible based on patient's age to complete this topic HPV Vaccines Completed 04/19/2008, 11/0 07/2007, 10/12/2007 [facility]-Hepatitis A Vaccines Aged Out 02/15/2017 No longer eligible based on patient's age to complete this topic [facility]-HIV Screening Completed 10/21/2019 [facility]-Hepatitis C Screening Completed 10/21/2019 [facility]-Rotavirus Vaccines Aged Out No lo nger eligible based on patient's age to complete this topic Procedures Procedure Name Priority Date/Time Associated Diagnosis Comments HEPATITIS C ANTIBODY - ED W/REFLEX TO HCV QUANT PCR Routine 10/21/2019 4:59 PM EDT HIV 1/2 ANTIBODY/ANTIGEN SCREEN WITH REFLEX TO HIV I/II DIFFERENTIATION Routine 10/21/2019 4:59 PM EDT from Last 3 Months or Most Recently Relevant to Health Maintenance Results * HIV 1 & 2 Antibody/Antigen Screen (10/21/2019 4:59 PM EDT) HIV 1 Result NONREACTIVE Screening for HIV 1 and 2 antibodies is NONREACTIVE. No confirmatory testing is required. SUNQUEST 10/21/2019 4:59 PM EDT 10/21/2019 5:06 PM EDT Jeffry Cummings LAB BLOOD ORDERABLES Final Resul t Performing Organization Address City/[facility] Co de Phone Number SUNQUEST * [place] Hepatitis C Antibody (10/21/2019 4:59 PM EDT) [place] Hepatitis C Ab NEGATIVE Reference Range: Negative SUNQUEST 10/21/2019 4:59 PM EDT 10/21/2019 5:06 PM EDT Vicki Rosenthal MD LAB BLOOD ORDERABLES Final Re sult SUNQUEST from Last 3 Months or Most Recently Relevant to Health Maintenance Insurance [facility] MEDICAID Care Teams Human Services Worker Relationship Specialty Start Date End Date Chilango Landeros APRN [address] [place] [id number] PCP - General 06/20/20
--- OUTSIDE RECORDS SUMMARY | 2024-10-30 10:19 | XMS_ITS | Clinical Summary ---
Author Organization [employer] ([place], [place], [place], [place]) Address [address] [place] [address] Care Team Providers Care Cleat Layer Name Role Phone Unavailable Primary Care Provider [...]
--- OUTSIDE RECORDS SUMMARY | 2024-10-30 10:19 | XMS_ITS | Encounter Summary ---
Author Organization [employer] ([place], [place], [place], [place]) Address [address] [place] [address] Care Team Providers Care Group Managing Director Name Role Phone Unavailable Primary Care Provider Unavailabl e Encounter Details Date Type Department Care Team (Late st Contact Info) Description 11/06/2018 Transcribed Document [facility] [place] Family Medicine [facility] [place] [address] ProviderTyler MD [address], [place] [phone] Social History Tobacco Use Types Packs/Day Years [...] Conversion Note - Historical ProviderMD - 11/06/2018 6:20 PM CDT ED Discharge Entered On: 11/06/2018 18:20 EDT Performed On: 11/06/2018 18:20 EDT by MIKE TOWNSEND, cotton agent Process Patient Disposition : AMA/Elope/LWBS MIKE TOWNSEND RN - 11/06/2018 18:20 EDT LWBS/Elopement/AMA Patient Left Prior To Medical Screening : Unseen Attempts to Locate Patient : eloped @ 1559 Patient Elopement : Yes Attempts to Locate Patient : 3 Provider Notified : Yes MIKE TOWNSEND RN - 11/06/2018 18:20 EDT documented in this encounter Plan of Treatment Not on file documented as of this encounter Visit Diagnoses Not on filedocumented in this encounter
--- OUTSIDE RECORDS SUMMARY | 2024-10-30 10:19 | XMS_ITS | Clinical Summary ---
Author Organization [facility] Address [address] [place] [address] Care Team Providers Care Blaster Helper Name Role Phone Berry Noriega MD Primary Care Provider [phone] Allergies No known active allergies Medications omeprazole (priLOSEC) 20 MG capsule Take 20 mg by mouth Daily. 1 Active Lancets (OneTouch Delica Plus [id number]) misc See Admin Instructions. 1 Active OneTouch Verio test strip 1 Active Blood Glucose Monitoring Suppl (OneTouch Verio Flex System) w/Device kit See Admin Instructions. 1 Active Vit-Fe Fumarate-FA ( ) 27-1 MG tablet tablet Take 1 tablet by mouth Daily. Active ondansetron (ZOFRAN) 4 MG tablet Take 4 mg by mouth Every 8 (Eight) Hours As Needed for Nausea or Vomiting. Active Insulin Glargine (LANTUS SOLOSTAR) 100 UNIT/ML injection penIndications: Gestational diabetes mellitus (GDM) in childbirth, insulin controlled Inject 20 Units under the skin into the appropriate area as directed 2 (Two) Times a Day for 30 days. 4 pen 2 1 Active Insulin Lispro, 1 Unit Dial, (HumaLOG KwikPen) 100 UNIT/ML solution pen-injectorInd ications:Gestat ional diabetes mellitus (GDM) in childbirth, insulin controlled Inject 14 Units under the skin into the appropriate area as directed 3 (Three) Times a Day With Meals for 30 days. 15 mL 2 1 Active Insulin Pen Needle (Pen [place]) 31G X 5 MM miscIndications :Gestational diabetes mellitus (GDM) in childbirth, insulin controlled 1 each 4 (Four) Times a Day. 100 each 2 Active Active Problems Problem Noted Date Diagnosed Date Insulin controlled gestation al diabetes mellitus (GDM) in third trimester 12/10/2020 12/10/2020 Previous delivery affecting 1 02/10/2020 Resolved Problems Problem Noted Date Diagnosed Date Resolved Date Pyelonephritis affecting pre gnancy, antepartum 04/14/2017 06/01/2018 Renal stones 04/14/2017 06/01/2018 Previous section 04/11/2017 04/11/2017 06/01/2018 Iron deficiency anemia 04/11/201706/01 Social History Tobacco Use Types Packs/Day Years Used Date Smoking Tobacco: Never Smokeless Tobacco: Never Tobacco Cessation:Counseling Given: No Alcohol Use Standard Drinks/Week Comments No 0 (1 standard drink = 0.6 oz pur e alcohol) Abuse Screen Answer Date Recorded Unsafe at Home or Work/School Not on file Feels Threatened by Someone? Not on file 12/2022 Does Anyone Keep You from Co ntacting Others or Doint Things Outside the Home? Not on file 11/17/2022 Physical Sign of Abuse Present Not on file 1 Housing Stability Answer Date Recorded Current Living Arrangements Not on file 11/07 Potentially Unsafe Housing Conditions Not on shena e 11/17/2022 Family and Community Support Answer Jerman e Recorded Help with Day-to-Day Activities Not on file 11/17/2022 Lonely or Isolated Not on file 11/17/2022 Employment Answer Date Recorded Do you want help finding or keeping work or a francesca b? Not on file 11/17/2022 Disabilities Answer Date Recorded Concentrating, Remembering, or Making Decisions Difficulty Not on file 11/17/2022 Doing Errands Independently Difficulty Not on fi le 11/17/2022 Education Answer Date Recorded Help with school or training? Not on file Preferred Language Not on file 11/17/2022 Comments No Sex and Gender Information Value Date Recorded Sex Assigned at Not on file Legal Sex Female 4:54 PM EST Gender Identity Not on file Sexual Orientation Not on file Last Filed Vital Signs Vital Sign Reading Time Taken Comments Blood Pressure 116/78 12/31/2020 8:04 AM EST Pulse 103 12/31/2020 8:04 AM EST Temperature 37.2 C (98.9 F) 10/01/2018 11:39 AM EDT Respiratory Rate 16 10/01/2018 11:39 AM EDT Oxygen Saturation 98% 10/01/2018 11:39 AM EDT Inhaled Oxygen Concentration - - Weight 93.5 kg (206 lb 3.2 oz) 12/03/2020 8:53 A M EDT Height 171.5 cm (5' 7.5 ) 12/03/2020 8:58 AM EDT Body Mass Index 31.82 12/03/2020 8:53 AM EDT Plan of Treatment Health Maintenance Due Date Last Done Comments Annual Gynecologic Pelvic an d Breast Exam 1995 ANNUAL PHYSICAL 12/03/2017 HEPATITIS C SCREENING 12/03/2017 INFLUENZA VACCINE 09/07/2024 TDAP/TD VACCINES (3 - Td or Tdap) 02/04/2025 02/04/2015, 10/12/2007 Pneumococcal Vaccine 0-49 Aged Out No longer eligible based on patient's age to complete this topic Insurance [employer] MEDICA[employer] Advance Directives * Full Code (Latest Code Status on File) Date Activated Date Inactivated Comments 04/12/2017 9:37 AM 04/14/2017 7:16 PM Care Teams Blaster Helper Relationship Specialty Start Date End Date Berry Noriega MD [address] [place] [id number] PCP - General Family Medicine 04/11/17
== END 2024-10-30 23:59 | disposition home or self-care (01) ==
LOC: LAB 10:07
PROVIDERS: PCP Nurse Practitioner Family; Visit Provider Obstetrics & Gynecology
DX: Z34.90 Encounter for supervision of normal pregnancy, unspecified, unspecified trimester (principal); Z3A.00 Weeks of gestation of pregnancy not specified
CPT/HCPCS: 36415; 84144; 84702; 87631